=== PATIENT | female | born 1955 | race Caucasian/White ===

== ENCOUNTER 2023-01-17 09:17 | Outpatient (OUT) | payer MEDICARE, SELFPAY ==
[2023-01-17 09:56] LABS: Basophils Percent Auto 0.8 % (0.2-2.0); Eosinophils Absolute Auto 0.1 10^3/uL (0.0-0.7); Eosinophils Percent Auto 2.4 % (0.9-7.0); Hematocrit 42.2 % (36.0-48.0); Hemoglobin 13.4 g/dL (12.0-16.0); Immature Granulocytes Abs Auto 0.01 10^3/uL (0.00-0.03); Immature Granulocytes Pct Auto 0.3 % (0.0-0.5); Lymphocytes Absolute Auto 1.2 10^3/uL (1.2-3.8); Lymphocytes Percent Auto 31.8 % (20.5-60.0); Mean Corpuscular HGB Conc 31.8 g/dL (29.9-35.2); Mean Corpuscular Hemoglobin 27.6 pg (26.7-34.0); Mean Corpuscular Volume 86.8 fL (81.0-99.0); Mean Platelet Volume 9.3 fL (9.5-13.5); Monocytes Absolute Auto 0.3 10^3/uL (0.3-0.8); Monocytes Percent Auto 7.9 % (1.7-12.0); Neutrophils Absolute Auto 2.2 10^3/uL (1.4-6.5); Neutrophils Percent Auto 56.8 % (43.0-75.0); Platelet Count 277 10^3/uL (150-450); Red Blood Count 4.86 10^6/uL (4.20-5.40); Red Cell Distribution Width 13.2 % (11.0-15.0); White Blood Count 3.8 10^3/uL (4.0-11.0)
[2023-01-17 10:38] LABS: Alanine Aminotransferase 24 U/L (14-59); Albumin Globulin Ratio 0.9; Albumin Level 3.5 g/dL (3.4-5.0); Alkaline Phosphatase 59 U/L (46-116); Aspartate Amino Transferase 21 U/L (15-37); BUN Creatinine Ratio 29.8; Bilirubin Total 0.4 mg/dL (0.2-1.0); Calcium 9.3 mg/dL (8.5-10.1); Chloride 104 mmol/L (98-107); Estimated GFR (African America >60 (>=60); Estimated GFR (Non-African Ame 53 (>=60); Globulin 3.8 g/dL; Glucose 115 mg/dL (74-106); Sodium 141 mmol/L (136-145); Total Protein 7.3 g/dL (6.4-8.2)
[2023-01-17 10:51] LABS: Cholesterol 170 mg/dL (<=200); HDL Cholesterol 57 mg/dL (40-60); LDL Cholesterol Calculated 91.8 mg/dL; Thyroid Stimulating Hormone 0.936 uIU/mL (0.358-3.740); Triglycerides 106 mg/dL (<=150); VLDL CHOLESTEROL 21.2 mg/dL
[2023-01-17 10:54] LABS: Free T4 1.14 ng/dL (0.76-1.46)
[2023-01-17 12:11] LABS: Microalbum Creatinine Ratio Ur 11.9 mg/g (0.0-29.9); Microalbumin Urine Random <1.3 mg/dL (<=30.0)
== END 2023-01-17 09:18 ==
LOC: LAB 09:20
PROVIDERS: PCP Family Medicine; Visit Provider Family Medicine
DX: R53.82 Chronic fatigue, unspecified (principal); E11.22 Type 2 diabetes mellitus with diabetic chronic kidney disease; N18.30 Chronic kidney disease, stage 3 unspecified; E78.2 Mixed hyperlipidemia
CPT/HCPCS: 36415; 80053; 80061; 82043; 82306; 82570; 82607; 82746; 84439; 84443; 84481; 85025

== ENCOUNTER 2023-08-27 09:25 | Outpatient (OUT) | payer MEDICARE, SELFPAY ==
--- NOTE | 2023-08-27 09:47 | MM_ITS ---
Patient Name: CAMILLA MERAZ MR#: [id number] : 1955 Exam Date: 08/27/2023 Ordering Doctor: DR PRAVEEN YODER D.O. RADIOLOGY REPORT PROCEDURE: MM TOMOSYNTHESIS SCREENING BI COMPARISON: MG MAMM NITHYA SCRN W CAD DIG, 06/09/2014. MG MAMM SCREEN 3D NITHYA CAD, 09/28/2021. INDICATIONS: Screening Calculator Name NCI Breast Cancer Risk Assessment Tool 5 Year Breast Cancer Risk 1.20% Lifetime Breast Cancer Risk 4.00% Personal Breast Cancer No Personal Ovarian Cancer No Treatments None Family Cancers Father with leukemia cancer at age ~78. LOCATION: [facility] BREAST COMPOSITION: Scattered areas fibroglandular density. FINDINGS: DIAGNOSTIC CATEGORY 2--BENIGN FINDING. NO CHANGE FROM COMPARISON. Scattered benign-appearing nodules are present. Scattered benign-appearing calcifications are present. Scattered benign-appearing lymph nodes are present. RIGHT BREAST: No significant suspicious finding. LEFT BREAST: No significant suspicious finding. RECOMMENDATIONS: ROUTINE MAMMOGRAM AND CLINICAL EVALUATION IN 12 MONTHS. PLEASE NOTE: A NORMAL MAMMOGRAM DOES NOT EXCLUDE THE POSSIBILITY OF BREAST CANCER. A CLINICALLY SUSPICIOUS PALPABLE LUMP SHOULD BE BIOPSIED. Dictated by: Alec Hernandez MD on 08/27/2023 at 11:03 Approved by: Alec Hernandez MD on 08/27/2023 at 11:05
== END 2023-08-27 09:26 | disposition home or self-care (01) ==
LOC: MAMMO 09:26
PROVIDERS: PCP Family Medicine; Visit Provider Family Medicine
DX: Z12.31 Encounter for screening mammogram for malignant neoplasm of breast (principal); Z80.6 Family history of leukemia
CPT/HCPCS: 77063; 77067

== ENCOUNTER 2023-10-01 08:58 | Outpatient (OUT) | payer MEDICARE, SELFPAY ==
--- OUTSIDE RECORDS SUMMARY | 2023-10-01 09:01 | XMS_ITS | CCD ---
Author Name Unknown Address [address] [place] [address] Organization [facility] Care Team Providers Care Community Support Specialist Name Role Phone YODER, DR PRAVEEN Weaver Admitting Unavailable YODER, DR PRAVEEN Weaver Attending Unavailable YODER, DR PRAVEEN Weaver Primary Care Unavailable YODRE, DR PRAVEEN Weaver Primary Care Unavailable HAY, DR DEVRIES Admitting Unavailable HAY, DR DEVRIES Attending Unavailable WEST, DR SHADY Felix Consulting Unavailable HAY, DR DEVRIES Consulting Unavailable YODER, DR PRAVEEN Weaver Admitting Unavailable YODER, DR PRAVEEN Weaver Attending Unavailable YODER, DR PRAVEEN Weaver Primary Care Unavailable YODER, DR PRAVEEN Weaver Consulting Unavailable Zieber, DR Merida Consulting Unavailable YODER, DR PRAVEEN Weaver Admitting Unavailable YODER, DR PRAVEEN Weaver Attending Unavailable YODER, DR PRAVEEN Weaver Primary Care Unavailable YODER, DR PRAVEEN Weaver Consulting Unavailable Zieber, DR Merida Consulting Unavailable YODER, DR PRAVEEN Weaver Admitting Unavailable YODER, DR PRAVEEN Weaver Attending Unavailable YODER, DR PRAVEEN Weaver Primary Care Unavailable YODER, DR PRAVEEN Weaver Consulting Unavailable Problems Active Problems Problem Classification Problem Date Documented Da te Episodic/Chronic Abdominal pain (4 sources) Unspecified abdominal pain; Translations: [UNSPECIFIED ABDOMINAL PAIN] Onset: 04-22-2022 Episodic Diabetes mellitus with complications (4 sources) Type 2 diabetes mellitus with diabetic chronic kidney disease; Translations: [TYPE 2 DM W/DIABETIC CKD] Onset: 01-31-2022 Chronic Disorders of lipid metabolism (1 source) Mixed hyperlipidemia; Translations: [MIXED HYPERLIPIDEMIA] Onset: 02-03-2022 Chronic Nausea and vomiting (1 source) Nausea; Translations: [NAUSEA] Onset: 04-25-2022 Episodic Other aftercare (1 source) 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; Translations: [M[facility] CURRENT USE OF ASPIRIN] Onset: 04-25-2022 Episodic Other aftercare (1 source) 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; Translations: [OTH [facility] CURRENT DRUG THERAPY] Onset: 04-25-2022 Episodic Screening and history of mental health and substance abuse codes (1 source) Personal history of nicotine dependence; Translations: [PERSONAL HISTORY OF NICOTINE DEPEND] Onset: 04-25-2022 Episodic Unclassified (1 source) CHRN KIDNEY DISEASE STG 3 UNSP; Translations: [CHRN KIDNEY DISEASE STG 3 UNSP] Onset: 02-03-2022 Past or Other Problems Problem Classification Problem Date Documented Da te Episodic/Chronic Other screening for suspected conditions (not mental disorders or infectious disease) (5 sources) Other abnormal and inconclusive findings on diagnostic imaging of breast; Translations: [Encounter for screening mammogram for malignant neoplasm of breast] Onset: 09-30-2021 Episodic Residual codes; unclassified (4 sources) Asymptomatic menopausal state; Translations: [ASYMPTOMATIC MENOPAUSAL STATE] Onset: 09-28-2021 Episodic Residual codes; unclassified (1 source) Family history of leukemia; Translations: [FAMILY HISTORY OF LEUKEMIA] Onset: 09-30-2021 Episodic Results Test Name Value Interpretation Reference Range Facil ity CBC AUTO DIFFon 04-22-2022 BASO # 0.0 103/ul Normal 0.0-0.1 [facility] Comment on above: Performed By: #### C BC #### [facility] [address] [place] [address] Dr. Ruddy Oswald Basophils/100 WBC (Bld) 0.7 % Normal 0.2-2.0 [facility] Comment on above: Performed By: #### C BC #### [facility] [address] [place] [address] Dr. Ruddy Oswald EO # 0.1 103/ul Normal 0.0-0.7 [facility] Comment on above: Performed By: #### C BC #### [facility] [address] [place] [address] Dr. Ruddy Oswald Eosinophils/100 WBC (Bld) 1.4 % Normal 0.9-7.0 [facility] Comment on above: Performed By: #### C BC #### [facility] [address] [place] [address] Dr. Ruddy Oswald Erythrocyte distribution width (RBC) [Ratio] 14.6 % Normal 11.0-15.0 [facility] Comment on above: Performed By: #### C BC #### [facility] [address] [place] [address] Dr. Ruddy Oswald Hematocrit (Bld) [Volume fraction] 40.2 % Normal 36.0-48.0 [facility] Comment on above: Performed By: #### C BC #### [facility] [address] [place] [address] Dr. Ruddy Oswald Hemoglobin (Bld) [Mass/Vol] 12.6 g/dL Normal 12.0-16.0 [facility] Comment on above: Performed By: #### C BC #### [facility] [address] [place] [address] Dr. Ruddy Oswald IG # 0.01 10e3/ul Normal 0.00-0.03 [facility] Comment on above: Performed By: #### C BC #### [facility] [address] [place] [address] Dr. Ruddy Oswald IG % 0.2 % Normal 0.0-0.5 [facility] Comment on above: Performed By: #### C BC #### [facility] [address] [place] [address] Dr. Ruddy Oswald LYMPH # 1.5 103/ul Normal 1.2-3.8 [facility] Comment on above: Performed By: #### C BC #### [facility] [address] [place] [address] Dr. Ruddy Oswald Lymphocytes/100 WBC (Bld) 32.8 % Normal 20.5-60.0 [facility] Comment on above: Performed By: #### C BC #### [facility] [address] [place] [address] Dr. Ruddy Oswald MANUAL DIFF REQ NO Normal [facility] Comment on above: Performed By: #### C BC #### [facility] [address] [place] [address] Dr. Ruddy Oswald MCH (RBC) [Entitic mass] 26.7 pg Normal 26.7-34.0 [facility] Comment on above: Performed By: #### C BC #### [facility] [address] [address] [address] Ruddy Oswald MCHC (RBC) [Mass/Vol] 31.3 g/dL Normal 29.9-35.2 [facility] Comment on above: Performed By: #### C BC #### [facility] [address] [address] [address] Ruddy Oswald MCV (RBC) [Entitic vol] 85.2 fL Normal 81.0-99.0 [facility] Comment on above: Performed By: #### C BC #### [facility] [address] [address] [address] Ruddy Oswald MONO # 0.4 103/ul Normal 0.3-0.8 [facility] Comment on above: Performed By: #### C BC #### [facility] [address] [place] [address] Dr. Ruddy Oswald Monocytes/100 WBC (Bld) 8.6 % Normal 1.7-12.0 [facility] Comment on above: Performed By: #### C BC #### [facility] [address] [place] [address] Dr. Ruddy Oswald NEUT # 2.5 103/ul Normal 1.4-6.5 [facility] Comment on above: Performed By: #### C BC #### [facility] [address] [place] [address] Dr. Ruddy Oswald Neutrophils/100 WBC (Bld) 56.3 % Normal 43.0-75.0 [facility] Comment on above: Performed By: #### C BC #### [facility] [address] [address] [address] Ruddy Oswald Platelet mean volume (Bld) [Entitic vol] 9.4 fL Critically low 9.5-13.5 [facility] Comment on above: Performed By: #### C BC #### [facility] [address] [place] [address] Dr. Ruddy Oswald PLT 269 103/ul Normal 150-450 [facility] Comment on above: Performed By: #### C BC #### [facility] [address] [address] [address] Ruddy Oswald RBC 4.72 106/ul Normal 4.20-5.40 [facility] Comment on above: Performed By: #### C BC #### [facility] [address] [address] [address] Ruddy Oswald WBC 4.4 103/ul Normal 4.0-11.0 [facility] Comment on above: Performed By: #### C BC #### [facility] [id number] Ruddy Oswald CT ABD/PELVIS WO CONon 04-22 CT ABD/PELVIS WO CON EXAMINATION: CT ABD/PELVIS WO CON, 04/22/2022 11:56 AM EDT HISTORY: Left flank pain COMPARISON: None. TECHNIQUE: CT scan of the abdomen and pelvis was performed without IV contrast. CT dose reduction technique was used, including Automated Exposure Control. FINDINGS: LUNG BASES: Bibasilar opacities, atelectasis is favored LIVER: Hypodensity left hepatic lobe. A simple cyst is favored BILIARY: No dilatation or calcification. PANCREAS: No lesion, fluid collection, ductal dilatation, or atrophy. SPLEEN: No enlargement or focal lesion. ADRENALS: No mass or enlargement. KIDNEYS: No mass, obstruction, or calcification. BOWEL/MESENTERY: Colonic diverticulosis without evidence of acute diverticulitis. Nonobstructive bowel gas pattern. Normal appendix. AORTA/VASCULAR: No aortic aneurysm. Mild atherosclerosis. RETROPERITONEUM: No mass or adenopathy. LYMPH NODES: No adenopathy. URINARY BLADDER: No visible focal wall thickening, lesion, or calculus. PELVIC ORGANS: Hysterectomy ABDOMINAL WALL: No mass or hernia. BONES: No bony lesion or fracture. Dextrocurvature with degenerative change. 3 mm anterolisthesis of L4 and L5 OTHER: Negative. IMPRESSION: No obstructive uropathy Electronically authenticated by: SHADY WARE Date: 2022-04-22 12:27 Normal [facility] PROF 14(COMP METB)on 022 Albumin [Mass/Vol] 3.9 g/dL Normal 3.4-5.0 [facility] Comment on above: Performed By: #### C MP #### [facility] [address] [address] [address] Ruddy Oswald Albumin/Globulin [Mass ratio] 1.2 {ratio} Normal [facility] Comment on above: Performed By: #### C MP #### [facility] [address] [address] [address] Ruddy Oswald ALP [Catalytic activity/Vol] 53 U/L Normal 46-116 [facility] Comment on above: Performed By: #### C MP #### [facility] [address] [place] [address] Dr. Ruddy Oswald ALT [Catalytic activity/Vol] 20 U/L Normal 14-59 [facility] Comment on above: Performed By: #### C MP #### [facility] [address] [place] [address] Dr. Ruddy Oswald Anion gap [Moles/Vol] 9.1 mmol/L Normal [facility] Comment on above: Performed By: #### C MP #### [facility] [address] [place] [address] Dr. Ruddy Oswald AST [Catalytic activity/Vol] 13 U/L Critically low 15-37 [facility] Comment on above: Performed By: #### C MP #### [facility] [address] [place] [address] Dr. Ruddy Oswald Bilirubin [Mass/Vol] 0.4 mg/dL Normal 0.2-1.0 [facility] Comment on above: Performed By: #### C MP #### [facility] [address] [place] [address] Dr. Ruddy Oswald Calcium [Mass/Vol] 9.3 mg/dL Normal 8.5-10.1 [facility] Comment on above: Performed By: #### C MP #### [facility] [address] [place] [address] Dr. Ruddy Oswald Chloride [Moles/Vol] 104 mmol/L Normal 98-107 [facility] Comment on above: Performed By: #### C MP #### [facility] [address] [place] [address] Dr. Ruddy Oswald CO2 [Moles/Vol] 29.9 mmol/L Normal 21.0-32.0 [facility] Comment on above: Performed By: #### C MP #### [facility] [address] [address] [address] Ruddy Oswald Creatinine [Mass/Vol] 1.21 mg/dL Critically high 0.55-1.02 [facility] Comment on above: Performed By: #### C MP #### [facility] [address] [address] [address] Ruddy Oswald EGFR-AF ECUADOREAN 54 mL/min/1.73m2 Critically low >=60 [facility] Comment on above: Performed By: #### C MP #### [facility] [address] [address] [address] Ruddy Oswald EGFR-NON AF ECUADOREAN 45 mL/min/1.73m2 Critically low >=60 [facility] Comment on above: Performed By: #### C MP #### [facility] [address] [address] [address] Ruddy Oswald Globulin (S) [Mass/Vol] 3.3 g/dL Normal [facility] Comment on above: Performed By: #### C MP #### [facility] [address] [address] [address] Ruddy Oswald Glucose [Mass/Vol] 121 mg/dL Critically high 74-106 [facility] Comment on above: Performed By: #### C MP #### [facility] [address] [address] [address] Ruddy Oswald Potassium [Moles/Vol] 4.0 mmol/L Normal 3.5-5.1 [facility] Comment on above: Performed By: #### C MP #### [facility] [address] [address] [address] Ruddy Oswald Protein [Mass/Vol] 7.2 g/dL Normal 6.4-8.2 [facility] Comment on above: Performed By: #### C MP #### [facility] [address] [place] [address] Dr. Ruddy Oswald Sodium [Moles/Vol] 139 mmol/L Normal 136-145 [facility] Comment on above: Performed By: #### C MP #### [facility] [address] [place] [address] Dr. Ruddy Oswald Urea nitrogen [Mass/Vol] 40.0 mg/dL Critically high 7.0-18.0 [facility] Comment on above: Performed By: #### C MP #### [facility] [address] [place] [address] Dr. Ruddy Oswald Urea nitrogen/Creatinine [Mass ratio] 33.1 mg/mg Normal [facility] Comment on above: Performed By: #### C MP #### [facility] [address] [place] [address] Dr. Ruddy Oswald CBC AUTO DIFFon 01-31-2022 BASO # 0.0 103/ul Normal 0.0-0.1 [facility] Comment on above: Performed By: #### C BC #### [facility] [address] [place] [address] Dr. Ruddy Oswald Basophils/100 WBC (Bld) 0.7 % Normal 0.2-2.0 [facility] Comment on above: Performed By: #### C BC #### [facility] [address] [place] [address] Dr. Ruddy Oswald EO # 0.1 103/ul Normal 0.0-0.7 [facility] Comment on above: Performed By: #### C BC #### [facility] [address] [place] [address] Dr. Ruddy Oswald Eosinophils/100 WBC (Bld) 2.4 % Normal 0.9-7.0 [facility] Comment on above: Performed By: #### C BC #### [facility] [address] [place] [address] Dr. Ruddy Oswald Erythrocyte distribution width (RBC) [Ratio] 13.8 % Normal 11.0-15.0 [facility] Comment on above: Performed By: #### C BC #### [facility] [address] [place] [address] Dr. Ruddy Oswald Hematocrit (Bld) [Volume fraction] 39.0 % Normal 36.0-48.0 [facility] Comment on above: Performed By: #### C BC #### [facility] [address] [place] [address] Dr. Ruddy Oswald Hemoglobin (Bld) [Mass/Vol] 11.8 g/dL Critically low 12.0-16.0 [facility] Comment on above: Performed By: #### C BC #### [facility] [address] [place] [address] Dr. Ruddy Oswald IG # 0.01 10e3/ul Normal 0.00-0.03 [facility] Comment on above: Performed By: #### C BC #### [facility] [address] [place] [address] Dr. Ruddy Oswald IG % 0.2 % Normal 0.0-0.5 [facility] Comment on above: Performed By: #### C BC #### [facility] [address] [place] [address] Dr. Ruddy Oswald LYMPH # 1.5 103/ul Normal 1.2-3.8 [facility] Comment on above: Performed By: #### C BC #### [facility] [address] [place] [address] Dr. Ruddy Oswald Lymphocytes/100 WBC (Bld) 35.6 % Normal 20.5-60.0 [facility] Comment on above: Performed By: #### C BC #### [facility] [address] [place] [address] Dr. Ruddy Oswald MANUAL DIFF REQ NO Normal [facility] Comment on above: Performed By: #### C BC #### [facility] [address] [place] [address] Dr. Ruddy Oswald MCH (RBC) [Entitic mass] 26.1 pg Critically low 26.7-34.0 [facility] Comment on above: Performed By: #### C BC #### [facility] [address] [place] [address] Dr. Ruddy Oswald MCHC (RBC) [Mass/Vol] 30.3 g/dL Normal 29.9-35.2 [facility] Comment on above: Performed By: #### C BC #### [facility] [address] [place] [address] Dr. Ruddy Oswald MCV (RBC) [Entitic vol] 86.3 fL Normal 81.0-99.0 [facility] Comment on above: Performed By: #### C BC #### [facility] [address] [place] [address] Dr. Ruddy Oswald MONO # 0.3 103/ul Normal 0.3-0.8 [facility] Comment on above: Performed By: #### C BC #### [facility] [address] [place] [address] Dr. Ruddy Oswald Monocytes/100 WBC (Bld) 6.7 % Normal 1.7-12.0 [facility] Comment on above: Performed By: #### C BC #### [facility] [address] [place] [address] Dr. Ruddy Oswald NEUT # 2.3 103/ul Normal 1.4-6.5 [facility] Comment on above: Performed By: #### C BC #### [facility] [address] [place] [address] Dr. Ruddy Oswald Neutrophils/100 WBC (Bld) 54.4 % Normal 43.0-75.0 [facility] Comment on above: Performed By: #### C BC #### [facility] [address] [place] [address] Dr. Ruddy Oswald Platelet mean volume (Bld) [Entitic vol] 9.7 fL Normal 9.5-13.5 [facility] Comment on above: Performed By: #### C BC #### [facility] [address] [place] [address] Dr. Ruddy Oswald PLT 318 103/ul Normal 150-450 [facility] Comment on above: Performed By: #### C BC #### [facility] [address] [place] [address] Dr. Ruddy Oswald RBC 4.52 106/ul Normal 4.20-5.40 [facility] Comment on above: Performed By: #### C BC #### [facility] [address] [address] [address] Ruddy Oswald WBC 4.2 103/ul Normal 4.0-11.0 [facility] Comment on above: Performed By: #### C BC #### [facility] [address] [address] [address] Ruddy Oswald LIPID PROFILEon 01-31-2022 CHOL-HDL RATIO NORM SEE BELOW Normal [facility] Comment on above: Result Comment: 3.3 - 4.4 LOW RISK 4.4 - 7.1 AVERAGE RISK 7.1 - 11.0 MODERATE RISK >11.0 HIGH RISK Performed By: #### L IPID, CMP #### [facility] [address] [place] [address] Dr. Ruddy Oswald Cholesterol [Mass/Vol] 192 mg/dL Normal <=200 [facility] Comment on above: Performed By: #### L IPID, CMP #### [facility] [address] [place] [address] Dr. Ruddy Oswald Cholesterol in HDL [Mass/Vol] 60 mg/dL Normal 40-60 [facility] Comment on above: Performed By: #### L IPID, CMP #### [facility] [address] [place] [address] Dr. Ruddy Oswald Cholesterol in LDL [Mass/Vol] 109.0 mg/dL Normal [facility] Comment on above: Performed By: #### L IPID, CMP #### [facility] [address] [address] [address] Ruddy Oswald Cholesterol.total/C holesterol in HDL [Mass ratio] 3.2 {ratio} Normal [facility] Comment on above: Performed By: #### L IPID, CMP #### [facility] [address] [place] [address] Dr. Ruddy Oswald HDL NORMAL > or = 60 mg/dl - LO W CARDIOVASCULAR RISK <40 mg/dl - HIGH CARDIOVASCULAR RISK Normal [facility] Comment on above: Performed By: #### L IPID, CMP #### [facility] [address] [address] [address] Ruddy Oswald LDL CALC NORMAL SEE BELOW Normal [facility] Comment on above: Result Comment: <100 mg/dl OPTIMAL 100 - 129 mg/dl NEAR OR ABOVE OPTIMAL 130 - 159 mg/dl BORDERLINE HIGH 160 - 189 mg/dl HIGH >190 mg/dl VERY HIGH Performed By: #### L IPID, CMP #### [facility] [address] [address] [address] Ruddy Oswald Triglyceride [Mass/Vol] 115 mg/dL Normal <=150 [facility] Comment on above: Performed By: #### L IPID, CMP #### [facility] [address] [address] [address] Ruddy Oswald VLDL CALC 23.0 mg/dL Normal [facility] Comment on above: Performed By: #### L IPID, CMP #### [facility] [address] [place] [address] Dr. Ruddy Oswald MICROALBUMIN, RAND URon 07-0 mALB <1.3 Normal <=30.0 [facility] Comment on above: Performed By: #### M ALBR #### [facility] [address] [address] [address] Ruddy Oswald PROF 14(COMP METB)on 022 Albumin [Mass/Vol] 3.6 g/dL Normal 3.4-5.0 [facility] Comment on above: Performed By: #### L IPID, CMP #### [facility] [address] [place] [address] Dr. Ruddy Oswald Albumin/Globulin [Mass ratio] 1.1 {ratio} Normal [facility] Comment on above: Performed By: #### L IPID, CMP #### [facility] [address] [place] [address] Dr. Ruddy Oswald ALP [Catalytic activity/Vol] 57 U/L Normal 46-116 [facility] Comment on above: Performed By: #### L IPID, CMP #### [facility] [address] [address] [address] Ruddy Oswald ALT [Catalytic activity/Vol] 23 U/L Normal 14-59 [facility] Comment on above: Performed By: #### L IPID, CMP #### [facility] [address] [place] [address] Dr. Ruddy Oswald Anion gap [Moles/Vol] 11.0 mmol/L Normal [facility] Comment on above: Performed By: #### L IPID, CMP #### [facility] [address] [place] [address] Dr. Ruddy Oswald AST [Catalytic activity/Vol] 15 U/L Normal 15-37 [facility] Comment on above: Performed By: #### L IPID, CMP #### [facility] [address] [place] [address] Dr. Ruddy Oswald Bilirubin [Mass/Vol] 0.3 mg/dL Normal 0.2-1.0 [facility] Comment on above: Performed By: #### L IPID, CMP #### [facility] [address] [place] [address] Dr. Ruddy Osawld Calcium [Mass/Vol] 9.1 mg/dL Normal 8.5-10.1 [facility] Comment on above: Performed By: #### L IPID, CMP #### [facility] [address] [place] [address] Dr. Ruddy Oswald Chloride [Moles/Vol] 106 mmol/L Normal 98-107 [facility] Comment on above: Performed By: #### L IPID, CMP #### [facility] [address] [place] [address] Dr. Ruddy Oswald CO2 [Moles/Vol] 30.0 mmol/L Normal 21.0-32.[address] [facility] Comment on above: Performed By: #### L IPID, CMP #### [facility] [address] [place] [address] Dr. Ruddy Oswald Creatinine [Mass/Vol] 0.98 mg/dL Normal 0.55-1.02 [facility] Comment on above: Performed By: #### L IPID, CMP #### [facility] [address] [place] [address] Dr. Ruddy Oswald EGFR-AF ECUADOREAN >60 Normal >=60 [facility] Comment on above: Performed By: #### L IPID, CMP #### [facility] [address] [place] [address] Dr. Ruddy Oswald EGFR-NON AF [place]UADOREAN 57 mL/min/1.73m2 Critically low >=60 [facility] Comment on above: Performed By: #### L IPID, CMP #### [facility] [address] [address] [address] Ruddy Oswald Globulin (S) [Mass/Vol] 3.4 g/dL Normal [facility] Comment on above: Performed By: #### L IPID, CMP #### [facility] [address] [place] [address] Dr. Ruddy Oswald Glucose [Mass/Vol] 121 mg/dL Critically high 74-106 [facility] Comment on above: Performed By: #### L IPID, CMP #### [facility] [address] [place] [address] Dr. Ruddy Oswald Potassium [Moles/Vol] 5.0 mmol/L Normal 3.5-5.1 [facility] Comment on above: Performed By: #### L IPID, CMP #### [facility] [address] [place] [address] Dr. Ruddy Oswald Protein [Mass/Vol] 7.0 g/dL Normal 6.4-8.2 [facility] Comment on above: Performed By: #### L IPID, CMP #### [facility] [address] [place] [address] Dr. Ruddy Oswald Sodium [Moles/Vol] 142 mmol/L Normal 136-145 [facility] Comment on above: Performed By: #### L IPID, CMP #### [facility] [address] [place] [address] Dr. Ruddy Oswald Urea nitrogen [Mass/Vol] 30.0 mg/dL Critically high 7.0-18.0 [facility] Comment on above: Performed By: #### L IPID, CMP #### [facility] [address] [address] [address] Ruddy Oswald Urea nitrogen/Creatinine [Mass ratio] 30.6 mg/mg Normal [facility] Comment on above: Performed By: #### L IPID, CMP #### [facility] [address] [place] [address] Dr. Ruddy Oswald US BREAST LEFT LIMITEDon US BREAST LEFT LIMITED Patient: CAMILLA MERAZ Exam Date: 11/08/2021 : 1955 Gender:F Ordering : DR PRAVEEN YODER D.O. Admission #: [id number] Family : Order #: [id number] CLICK HERE TO VIEW EXAM RADIOLOGY REPORT PROCEDURE: ULTRASOUND BREAST LEFT LIMITED COMPARISON: MG MAMM NITHYA SCRN W CAD DIG, 06/09/2014. MG MAMM SCREEN 3D NITHYA CAD, 09/28/2021. INDICATIONS: Abnormal findings on diagnostic imaging of breast TECHNIQUE: Breast ultrasound was performed, with evaluation focusing only on specific areas of concern. FINDINGS: DIAGNOSTIC CATEGORY 3--PROBABLY BENIGN FINDING. THE FOLLOWING FINDING(S) HAS A HIGH PROBABILITY OF A BENIGN ETIOLOGY: LEFT BREAST: 8 mm smoothly marginated slightly heterogeneous mass at the 12 o'clock position 4.8 cm from the nipple which corresponds to the mammographic findings. In retrospect this has been present since 2013 on mammography suggesting benign etiology. Follow-up ultrasound evaluation in 6 months is recommended to document continued stability prior to returning to screening mammography. RECOMMENDATIONS: SHORT TERM FOLLOW-UP ULTRASOUND LEFT BREAST IN 6 MONTHS. PLEASE NOTE: A NORMAL ULTRASOUND EXAMINATION DOES NOT EXCLUDE THE POSSIBILITY OF BREAST CANCER. A CLINICALLY SUSPICIOUS PALPABLE LUMP SHOULD BE BIOPSIED. Dictated by: Fuad Diaz M.D. on 11/08/2021 at 09:51 Approved by: Fuad Diaz M.D. on 11/08/2021 at 09:55 Normal [facility] MG MAMM SCREEN 3D NITHYA CADon 09-28-2021 MG MAMM SCREEN 3D NITHYA CAD Patient: CAMILLA MERAZ Exam Date: 09/28/2021 : 1955 Gender:F Ordering : DR PRAVEEN YODER D.O. Admission #: [id number] Family : Order #: [id number] CLICK HERE TO VIEW EXAM RADIOLOGY REPORT PROCEDURE: MAMMOGRAM SCREENING 3D BILATERAL CAD COMPARISON: MG MAMM NITHYA SCRN W CAD DIG, 04/01/2013. MG MAMM NITHYA SCRN W CAD DIG, 06/09/2014. INDICATIONS: Screening mammography Calculator Name NCI Breast Cancer Risk Assessment Tool 5 Year Breast Cancer Risk 1.20% Lifetime Breast Cancer Risk 4.40% Personal Breast Cancer No Personal Ovarian Cancer No Treatments None Family Cancers Father with leukemia cancer at age 78. LOCATION: [facility] BREAST COMPOSITION: Scattered areas fibroglandular density. FINDINGS: DIAGNOSTIC CATEGORY 0--INCOMPLETE: NEED ADDITIONAL IMAGING EVALUATION. RIGHT BREAST: No significant suspicious finding. No significant change has occurred. LEFT BREAST: 1 cm asymmetry versus mass within the anterior upper-outer quadrant. Ultrasound evaluation is recommended. RECOMMENDATIONS: ULTRASOUND: LEFT BREAST PLEASE NOTE: A NORMAL MAMMOGRAM DOES NOT EXCLUDE THE POSSIBILITY OF BREAST CANCER. A CLINICALLY SUSPICIOUS PALPABLE LUMP SHOULD BE BIOPSIED. Dictated by: Fuad Diaz M.D. on 09/28/2021 at 11:07 Approved by: Fuad Diaz M.D. on 09/28/2021 at 11:12 Normal [facility] XR DEXA BONE DENSITYon 09-28 XR DEXA BONE DENSITY EXAMINATION: XR DEXA BONE DENSITY, 09/28/2021 8:50 AM EST HISTORY: Menopause present COMPARISON: DEXA bone densitometry 01/23/2012 TECHNIQUE: Dual-energy X-ray absorptiometry (DEXA) bone density study performed for the axial skeleton. FINDINGS: SPINE ANALYSIS: Average bone mineral density is 1.414 g/cm2. T-score (standard deviation relative to young adult mean): 1.8 . -7.9% change since prior study. HIP ANALYSIS: Lowest bone mineral density is within the right femoral neck, 1.005 g/cm2. T-score (standard deviation relative to young adult mean): -0.2 . -9.8% change since prior study. IMPRESSION: [employer] Classification: Normal - Low Fracture Risk Electronically authenticated by: FUAD DIAZ Date: 2021-09-28 14:43 Normal [facility] Encounters Encounter Date Encounter Type Care Provider Facility Start: 05-11-[address] PRAVEEN YODER Fac ility:[facility] Start: 04-22-2022 End: 04-22-[address] PRAVEEN YODER Facility:[facility] Start: 01-31-2022 End: 02-01-[address] PRAVEEN YODER Facility:[facility] Start: 11-08-2021 End: 11-09-[address] PRAVEEN YODER Facility:[facility] Start: 09-28-2021 End: 09-29-[address] PRAVEEN YODER Facility:[facility] Payers Date Payer Category Payer Unknown [id number] 1955 Unknown [id number] 2.16.84 [id number] 1955 Unknown [id number] 2.16.84 [id number] 1955 Unknown [id number] 2.16.84 [id number] 1955 Unknown [id number] 2.16.84 [id number] 1955 Unknown [id number] 2.16.84 [id number] Summary Purpose Family History No Family History Records Found Advance Directives No Advanced Directives Records Found Additional Source Comments INFORMATION SOURCE (unrecogn ized section and content) DATE CREATED AUTHOR 05/09/2022 [facility] FOR RECORDS PERTAINING TO PATIENTS WHO ARE OR HAVE BEEN ENROLLED IN A CHEMICAL DEPENDENCY/SUBSTANCEABUSE PROGRAM, SOME INFORMATION MAY BE OMITTED. This clinical summary was aggregated from multiple sources. Caution should be exercised in using it in the provision of clinical care. This summary normalizes information from multiple sources, and as a consequence, information in this document may materially change the coding, format and clinical context of patient data. In addition, data may be omitted in some cases. CLINICAL DECISIONS SHOULD BE BASED ON THE PRIMARY CLINICAL RECORDS. [facility] [employer] provides no warranty or guarantee of the accuracy or completeness of information in this document.
--- NOTE | 2023-10-01 09:03 | XR_ITS ---
The [address] [address] Patient Name: CAMILLA MERAZ MRN: [id number] date: 1955 Sex: F Assigned Patient Location: [facility] Current Patient Location: [facility] Accession/Order Number: [id number] Exam Date: 10/01/2023 09:20 Report Date: 10/01/2023 10:09 At the request of: PRAVEEN YODER Procedure: XR DEXA axial skeleton EXAMINATION: XR DEXA axial skeleton, 10/01/2023 9:20 AM EST HISTORY: menopause state Z78.0 COMPARISON: 2011, 2009. TECHNIQUE: Dual-energy X-ray absorptiometry (DEXA) bone density study performed for the axial skeleton. HISTORY: menopause state Z78.0 FINDINGS: Bone mineral density AP spine L1-L4 measures 1.393 g/sq cm. T score 1.8. WHO classification: Normal. Lowest bone mineral density right femoral neck measuring 0.970 g/sq cm. T score -0.5. WHO classification: Normal XR/XR DEXA axial skeleton IMPRESSION: Normal bone mineral density. Low fracture risk Electronically authenticated by: SHADY WARE Date: 10/01/2023 10:09
== END 2023-10-01 08:59 | disposition home or self-care (01) ==
LOC: RAD 08:59
PROVIDERS: PCP Family Medicine; Visit Provider Family Medicine
DX: Z78.0 Asymptomatic menopausal state (principal)
CPT/HCPCS: 77080

== ENCOUNTER 2024-01-17 09:08 | Outpatient (OUT) | payer MEDICARE, SELFPAY ==
--- OUTSIDE RECORDS SUMMARY | 2024-01-17 09:30 | XMS_ITS | CCD ---
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 Ruddy Oswald Basophils/100 WBC (Bld) 0.7 % Normal 0.2-2.0 [facility] Comment on above: Performed By: #### C BC #### [facility] [address] [address] [address] Ruddy Oswald EO # 0.1 103/ul Normal 0.0-0.7 [facility] Comment on above: Performed By: #### C BC #### [facility] [address] [address] [address] Ruddy Oswald Eosinophils/100 WBC (Bld) 1.4 % Normal 0.9-7.0 [facility] Comment on above: Performed By: #### C BC #### [facility] [address] [address] [address] Ruddy Oswald Erythrocyte distribution width (RBC) [Ratio] 14.6 % Normal 11.0-15.0 [facility] Comment on above: Performed By: #### C BC #### [facility] [address] [address] [address] Ruddy Oswald Hematocrit (Bld) [Volume fraction] 40.2 % Normal 36.0-48.0 [facility] Comment on above: Performed By: #### C BC #### [facility] [address] [address] [address] Ruddy Oswald Hemoglobin (Bld) [Mass/Vol] 12.6 g/dL Normal 12.0-16.0 [facility] Comment on above: Performed By: #### C BC #### [facility] [address] [address] [address] Ruddy Oswald IG # 0.01 10e3/ul Normal 0.00-0.03 [facility] Comment on above: Performed By: #### C BC #### [facility] [address] [address] [address] Ruddy Oswald IG % 0.2 % Normal 0.0-0.5 [facility] Comment on above: Performed By: #### C BC #### [facility] [address] [address] [address] Ruddy Oswald LYMPH # 1.5 103/ul Normal 1.2-3.8 [facility] Comment on above: Performed By: #### C BC #### [facility] [address] [address] [address] Ruddy Oswald Lymphocytes/100 WBC (Bld) 32.8 % Normal 20.5-60.0 [facility] Comment on above: Performed By: #### C BC #### [facility] [address] [address] [address] Ruddy Oswald MANUAL DIFF REQ NO Normal [facility] Comment on above: Performed By: #### C BC #### [facility] [address] [place] [address] Dr. Ruddy Oswald MCH (RBC) [Entitic mass] 26.7 pg Normal 26.7-34.0 [facility] Comment on above: Performed By: #### C BC #### [facility] [address] [address] [address] Ruddy Oswald MCHC (RBC) [Mass/Vol] 31.3 g/dL Normal 29.9-35.2 [facility] Comment on above: Performed By: #### C BC #### [facility] [address] [address] [address] Ruddy Oswald MCV (RBC) [Entitic vol] 85.2 fL Normal 81.0-99.0 [facility] Comment on above: Performed By: #### C BC #### [facility] [address] [address] [address] Ruddy Oswald MONO # 0.4 103/ul Normal 0.3-0.8 [facility] Comment on above: Performed By: #### C BC #### [facility] [address] [place] [address] Dr. Ruddy Oswald Monocytes/100 WBC (Bld) 8.6 % Normal 1.7-12.0 [facility] Comment on above: Performed By: #### C BC #### [facility] [address] [place] [address] Dr. Ruddy Oswald NEUT # 2.5 103/ul Normal 1.4-6.5 [facility] Comment on above: Performed By: #### C BC #### [facility] [address] [place] [address] Dr. Ruddy Oswald Neutrophils/100 WBC (Bld) 56.3 % Normal 43.0-75.0 [facility] Comment on above: Performed By: #### C BC #### [facility] [address] [place] [address] Dr. Ruddy Oswald Platelet mean volume (Bld) [Entitic vol] 9.4 fL Critically low 9.5-13.5 [facility] Comment on above: Performed By: #### C BC #### [facility] [address] [place] [address] Dr. Ruddy Oswald PLT 269 103/ul Normal 150-450 [facility] Comment on above: Performed By: #### C BC #### [facility] [address] [address] [address] Ruddy Oswald RBC 4.72 106/ul Normal 4.20-5.40 [facility] Comment on above: Performed By: #### C BC #### [facility] [address] [address] [address] Ruddy Oswald WBC 4.4 103/ul Normal 4.0-11.0 [facility] Comment on above: Performed By: #### C BC #### [facility] [address] ABD/PELVIS WO CONon [...] SHADY WARE Date: 2022-04-22 12:27 Normal [facility] PROF 14(COMP METB)on 022 Albumin [Mass/Vol] 3.9 g/dL Normal 3.4-5.0 [facility] Comment on above: Performed By: #### C MP #### [facility] [address] [address] [address] Ruddy Oswald Albumin/Globulin [Mass ratio] 1.2 {ratio} Normal [facility] Comment on above: Performed By: #### C MP #### [facility] [address] [place] [address] Dr. Ruddy Oswald ALP [Catalytic activity/Vol] 53 U/L Normal 46-116 [facility] Comment on above: Performed By: #### C MP #### [facility] [address] [place] [address] Dr. Ruddy Oswald ALT [Catalytic activity/Vol] 20 U/L Normal 14-59 [facility] Comment on above: Performed By: #### C MP #### [facility] [address] [place] [address] Dr. Ruddy Oswald Anion gap [Moles/Vol] 9.1 mmol/L Normal [facility] Comment on above: Performed By: #### C MP #### [facility] [address] [place] [address] Dr. Ruddy Oswald AST [Catalytic activity/Vol] 13 U/L Critically low 15-37 [facility] Comment on above: Performed By: #### C MP #### [facility] [address] [place] [address] Dr. Ruddy Oswald Bilirubin [Mass/Vol] 0.4 mg/dL Normal 0.2-1.0 [facility] Comment on above: Performed By: #### C MP #### [facility] [address] [place] [address] Dr. Ruddy Oswald Calcium [Mass/Vol] 9.3 mg/dL Normal 8.5-10.1 [facility] Comment on above: Performed By: #### C MP #### [facility] [address] [place] [address] Dr. Ruddy Oswald Chloride [Moles/Vol] 104 mmol/L Normal 98-107 [facility] Comment on above: Performed By: #### C MP #### [facility] [address] [place] [address] Dr. Ruddy Oswald CO2 [Moles/Vol] 29.9 mmol/L Normal 21.0-32.0 [facility] Comment on above: Performed By: #### C MP #### [facility] [address] [address] [address] Ruddy Oswald Creatinine [Mass/Vol] 1.21 mg/dL Critically high 0.55-1.02 [facility] Comment on above: Performed By: #### C MP #### [facility] [address] [address] [address] Ruddy Oswald EGFR-AF POLISH 54 mL/min/1.73m2 Critically low >=60 [facility] Comment on above: Performed By: #### C MP #### [facility] [address] [address] [address] Ruddy Oswald EGFR-NON AF POLISH 45 mL/min/1.73m2 Critically low >=60 [facility] Comment on above: Performed By: #### C MP #### [facility] [address] [address] [address] Ruddy Oswald Globulin (S) [Mass/Vol] 3.3 g/dL Normal [facility] Comment on above: Performed By: #### C MP #### [facility] [address] [address] [address] Ruddy Oswald Glucose [Mass/Vol] 121 mg/dL Critically high 74-106 [facility] Comment on above: Performed By: #### C MP #### [facility] [address] [address] [address] Ruddy Oswald Potassium [Moles/Vol] 4.0 mmol/L Normal 3.5-5.1 [facility] Comment on above: Performed By: #### C MP #### [facility] [address] [address] [address] Ruddy Oswald Protein [Mass/Vol] 7.2 g/dL Normal 6.4-8.2 [facility] Comment on above: Performed By: #### C MP #### [facility] [address] [address] [address] Ruddy Oswald Sodium [Moles/Vol] 139 mmol/L Normal 136-145 [facility] Comment on above: Performed By: #### C MP #### [facility] [address] [address] [address] Ruddy Oswald Urea nitrogen [Mass/Vol] 40.0 mg/dL Critically high 7.0-18.0 [facility] Comment on above: Performed By: #### C MP #### [facility] [address] [place] [address] Dr. Ruddy Oswald Urea nitrogen/Creatinine [Mass ratio] 33.1 mg/mg Normal [facility] Comment on above: Performed By: #### C MP #### [facility] [address] [place] [address] Dr. Ruddy Oswald CBC AUTO DIFFon 01-31-2022 BASO # 0.0 103/ul Normal 0.0-0.1 [facility] Comment on above: Performed By: #### C BC #### [facility] [address] [place] [address] Dr. Ruddy Oswald Basophils/100 WBC (Bld) 0.7 % Normal 0.2-2.0 [facility] Comment on above: Performed By: #### C BC #### [facility] [address] [place] [address] Dr. Ruddy Oswald EO # 0.1 103/ul Normal 0.0-0.7 [facility] Comment on above: Performed By: #### C BC #### [facility] [address] [place] [address] Dr. Ruddy Oswald Eosinophils/100 WBC (Bld) 2.4 % Normal 0.9-7.0 [facility] Comment on above: Performed By: #### C BC #### [facility] [address] [place] [address] Dr. Ruddy Oswald Erythrocyte distribution width (RBC) [Ratio] 13.8 % Normal 11.0-15.0 [facility] Comment on above: Performed By: #### C BC #### [facility] [address] [place] [address] Dr. Ruddy Oswald Hematocrit (Bld) [Volume fraction] 39.0 % Normal 36.0-48.0 [facility] Comment on above: Performed By: #### C BC #### [facility] [address] [place] [address] Dr. Ruddy Oswald Hemoglobin (Bld) [Mass/Vol] 11.8 g/dL Critically low 12.0-16.0 [facility] Comment on above: Performed By: #### C BC #### [facility] [address] [place] [address] Dr. Ruddy Oswald IG # 0.01 10e3/ul Normal 0.00-0.03 [facility] Comment on above: Performed By: #### C BC #### [facility] [address] [place] [address] Dr. Ruddy Oswald IG % 0.2 % Normal 0.0-0.5 [facility] Comment on above: Performed By: #### C BC #### [facility] [address] [place] [address] Dr. Ruddy Oswald LYMPH # 1.5 103/ul Normal 1.2-3.8 [facility] Comment on above: Performed By: #### C BC #### [facility] [address] [place] [address] Dr. Ruddy Oswald Lymphocytes/100 WBC (Bld) 35.6 % Normal 20.5-60.0 [facility] Comment on above: Performed By: #### C BC #### [facility] [address] [place] [address] Dr. Ruddy Oswald MANUAL DIFF REQ NO Normal [facility] Comment on above: Performed By: #### C BC #### [facility] [address] [place] [address] Dr. Ruddy Oswald MCH (RBC) [Entitic mass] 26.1 pg Critically low 26.7-34.0 [facility] Comment on above: Performed By: #### C BC #### [facility] [address] [place] [address] Dr. Ruddy Oswald MCHC (RBC) [Mass/Vol] 30.3 g/dL Normal 29.9-35.2 [facility] Comment on above: Performed By: #### C BC #### [facility] [address] [address] [address] Ruddy Oswald MCV (RBC) [Entitic vol] 86.3 fL Normal 81.0-99.0 [facility] Comment on above: Performed By: #### C BC #### [facility] [address] [address] [address] Ruddy Oswald MONO # 0.3 103/ul Normal 0.3-0.8 [facility] Comment on above: Performed By: #### C BC #### [facility] [address] [address] [address] Ruddy Oswald Monocytes/100 WBC (Bld) 6.7 % Normal 1.7-12.0 [facility] Comment on above: Performed By: #### C BC #### [facility] [address] [place] [address] Dr. Ruddy Oswald NEUT # 2.3 103/ul Normal 1.4-6.5 [facility] Comment on above: Performed By: #### C BC #### [facility] [address] [place] [address] Dr. Ruddy Oswald Neutrophils/100 WBC (Bld) 54.4 % Normal 43.0-75.0 [facility] Comment on above: Performed By: #### C BC #### [facility] [address] [place] [address] Dr. Ruddy Oswald Platelet mean volume (Bld) [Entitic vol] 9.7 fL Normal 9.5-13.5 [facility] Comment on above: Performed By: #### C BC #### [facility] [address] [place] [address] Dr. Ruddy Oswald PLT 318 103/ul Normal 150-450 [facility] Comment on above: Performed By: #### C BC #### [facility] [address] [place] [address] Dr. Ruddy Oswald RBC 4.52 106/ul Normal 4.20-5.40 [facility] Comment on above: Performed By: #### C BC #### [facility] [address] [address] [address] Ruddy Oswald WBC 4.2 103/ul Normal 4.0-11.0 [facility] Comment on above: Performed By: #### C BC #### [facility] [address] [place] [address] Dr. Ruddy Oswald LIPID PROFILEon 01-31-2022 CHOL-HDL RATIO NORM SEE BELOW Normal [facility] Comment on above: Result Comment: 3.3 - 4.4 LOW RISK 4.4 - 7.1 AVERAGE RISK 7.1 - 11.0 MODERATE RISK >11.0 HIGH RISK Performed By: #### L IPID, CMP #### [facility] [address] [place] [address] Dr. Ruddy Oswald Cholesterol [Mass/Vol] 192 mg/dL Normal <=200 [facility] Comment on above: Performed By: #### L IPID, CMP #### [facility] [address] [place] [address] Dr. Ruddy Oswald Cholesterol in HDL [Mass/Vol] 60 mg/dL Normal 40-60 [facility] Comment on above: Performed By: #### L IPID, CMP #### [facility] [address] [place] [address] Dr. Ruddy Oswald Cholesterol in LDL [Mass/Vol] 109.0 mg/dL Normal [facility] Comment on above: Performed By: #### L IPID, CMP #### [facility] [address] [place] [address] Dr. Ruddy Oswald Cholesterol.total/C holesterol in HDL [Mass ratio] 3.2 {ratio} Normal [facility] Comment on above: Performed By: #### L IPID, CMP #### [facility] [address] [place] [address] Dr. Ruddy Oswald HDL NORMAL > or = 60 mg/dl - LO W CARDIOVASCULAR RISK <40 mg/dl - HIGH CARDIOVASCULAR RISK Normal [facility] Comment on above: Performed By: #### L IPID, CMP #### [facility] [address] [place] [address] Dr. Ruddy Oswald LDL CALC NORMAL SEE BELOW Normal [facility] Comment on above: Result Comment: <100 mg/dl OPTIMAL 100 - 129 mg/dl NEAR OR ABOVE OPTIMAL 130 - 159 mg/dl BORDERLINE HIGH 160 - 189 mg/dl HIGH >190 mg/dl VERY HIGH Performed By: #### L IPID, CMP #### [facility] [address] [address] [address] Ruddy Oswald Triglyceride [Mass/Vol] 115 mg/dL Normal <=150 [facility] Comment on above: Performed By: #### L IPID, CMP #### [facility] [address] [address] [address] Ruddy Oswald VLDL CALC 23.0 mg/dL Normal [facility] Comment on above: Performed By: #### L IPID, CMP #### [facility] [address] [place] [address] Dr. Ruddy Oswald MICROALBUMIN, RAND URon 07-0 mALB <1.3 Normal <=30.0 [facility] Comment on above: Performed By: #### M ALBR #### [facility] [address] [place] [address] Dr. Ruddy Oswald PROF 14(COMP METB)on 022 Albumin [Mass/Vol] 3.6 g/dL Normal 3.4-5.0 [facility] Comment on above: Performed By: #### L IPID, CMP #### [facility] [address] [place] [address] Dr. Ruddy Oswald Albumin/Globulin [Mass ratio] 1.1 {ratio} Normal [facility] Comment on above: Performed By: #### L IPID, CMP #### [facility] [address] [address] [address] Ruddy Oswald ALP [Catalytic activity/Vol] 57 U/L Normal 46-116 [facility] Comment on above: Performed By: #### L IPID, CMP #### [facility] [address] [place] [address] Dr. Ruddy Oswald ALT [Catalytic activity/Vol] 23 U/L Normal 14-59 [facility] Comment on above: Performed By: #### L IPID, CMP #### [facility] [address] [address] [address] Ruddy Oswald Anion gap [Moles/Vol] 11.0 mmol/L Normal [facility] Comment on above: Performed By: #### L IPID, CMP #### [facility] [address] [address] [address] Ruddy Oswald AST [Catalytic activity/Vol] 15 U/L Normal 15-37 [facility] Comment on above: Performed By: #### L IPID, CMP #### [facility] [address] [address] [address] Ruddy Oswald Bilirubin [Mass/Vol] 0.3 mg/dL Normal 0.2-1.0 [facility] Comment on above: Performed By: #### L IPID, CMP #### [facility] [address] [address] [address] Ruddy Oswald Calcium [Mass/Vol] 9.1 mg/dL Normal 8.5-10.1 [facility] Comment on above: Performed By: #### L IPID, CMP #### [facility] [address] [address] [address] Ruddy Oswald Chloride [Moles/Vol] 106 mmol/L Normal 98-107 [facility] Comment on above: Performed By: #### L IPID, CMP #### [facility] [address] [address] [address] Ruddy Oswald CO2 [Moles/Vol] 30.0 mmol/L Normal 21.0-32.0 [facility] Comment on above: Performed By: #### L IPID, CMP #### [facility] [address] [address] [address] Ruddy Oswald Creatinine [Mass/Vol] 0.98 mg/dL Normal 0.55-1.02 [facility] Comment on above: Performed By: #### L IPID, CMP #### [facility] [address] [address] [address] Ruddy Oswald EGFR-AF POLISH >60 Normal >=60 [facility] Comment on above: Performed By: #### L IPID, CMP #### [facility] [address] [address] [address] Ruddy Oswald EGFR-NON AF POLISH 57 mL/min/1.73m2 Critically low >=60 [facility] Comment on above: Performed By: #### L IPID, CMP #### [facility] [address] [address] [address] Ruddy Oswald Globulin (S) [Mass/Vol] 3.4 g/dL Normal [facility] Comment on above: Performed By: #### L IPID, CMP #### [facility] [address] [place] [address] Dr. Ruddy Oswald Glucose [Mass/Vol] 121 mg/dL Critically high 74-106 [facility] Comment on above: Performed By: #### L IPID, CMP #### [facility] [address] [place] [address] Dr. Ruddy Oswald Potassium [Moles/Vol] 5.0 mmol/L Normal 3.5-5.1 [facility] Comment on above: Performed By: #### L IPID, CMP #### [facility] [address] [place] [address] Dr. Ruddy Oswald Protein [Mass/Vol] 7.0 g/dL Normal 6.4-8.2 [facility] Comment on above: Performed By: #### L IPID, CMP #### [facility] [address] [place] [address] Dr. Ruddy Oswald Sodium [Moles/Vol] 142 mmol/L Normal 136-145 [facility] Comment on above: Performed By: #### L IPID, CMP #### [facility] [address] [place] [address] Dr. Ruddy Oswald Urea nitrogen [Mass/Vol] 30.0 mg/dL Critically high 7.0-18.0 [facility] Comment on above: Performed By: #### L IPID, CMP #### [facility] [address] [place] [address] Dr. Ruddy Oswald Urea nitrogen/Creatinine [Mass ratio] 30.6 mg/mg Normal [facility] Comment on above: Performed By: #### L IPID, [facility] #### [facility] [address] [place] [address] Dr. Ruddy Oswald US BREAST LEFT LIMITEDon US BREAST LEFT LIMITED Patient: CAMILLA MERAZ. Exam Date: 11/08/2021 : 1955 Gender:F Ordering : DR PRAVEEN YODER D.O. Admission #: [id number] Family : Order #: [id number] CLICK HERE TO VIEW EXAM RADIOLOGY REPORT [...] M.D. on 11/08/2021 at 09:55 Normal [facility] MG MAMM SCREEN 3D NITHYA CADon 09-28-2021 MG MAMM SCREEN 3D NITHYA CAD Patient: CAMILLA MERAZ. Exam Date: 09/28/2021 : 1955 Gender:F Ordering : DR PRAVEEN YODER D.O. Admission #: [id number] Family : Order #: [id number] CLICK HERE TO VIEW EXAM RADIOLOGY REPORT [...] leukemia cancer at age 78. LOCATION: [facility] BREAST COMPOSITION: Scattered areas fibroglandular density. [...] Diaz M.D. on 09/28/2021 at 11:12 Normal [facility] XR DEXA BONE DENSITYon 09-28 XR DEXA [...] by: FUAD DIAZ Date: 2021-09-28 14:43 Normal [facility] Encounters Encounter Date Encounter Type Care Provider Facility Start: 05-11-[address] PRAVEEN YODER Fac ility:[facility] Start: 04-22-2022 End: 04-22-[address] PRAVEEN YODER Facility:[facility] Start: 01-31-2022 End: 02-01-[address] PRAVEEN YODER Facility:[facility] Start: 11-08-2021 End: 11-09-[address] PRAVEEN YODER Facility:[facility] Start: 09-28-2021 End: 09-29-[address] PRAVEEN YODER Facility:[facility] Payers Date Payer Category Payer Unknown [id number] 1955 Unknown [id number] [id number] [id number] 1955 Unknown [id number] 2.16.84 [id number] 1955 Unknown [id number] [id number] [id number] 1955 Unknown [id number] 2.16.84 [id number] 1955 Unknown [id number] 2.16.84 [id number] Summary Purpose Family History No Family History Records Found Advance Directives No Advanced Directives Records Found Additional Source Comments INFORMATION SOURCE (unrecogn ized section and content) DATE CREATED AUTHOR 05/09/2022 [facility] FOR RECORDS PERTAINING TO PATIENTS WHO ARE [...] BE BASED ON THE PRIMARY CLINICAL RECORDS. [employer] [facility]. provides no warranty or guarantee of the accuracy or completeness of information in this document.
--- NOTE | 2024-01-17 09:37 | XR_ITS ---
The [address] [address] Patient Name: CAMILLA MERAZ MRN: [id number] date: 1955 Sex: F Assigned Patient Location: LAB Current Patient Location: Accession/Order Number: [id number] Exam Date: 01/17/2024 09:42 Report Date: 01/18/2024 06:10 At the request of: PRAVEEN YODER Procedure: XR knee LT 3V PROCEDURE: XR knee LT 3V HISTORY: Left Knee Pain M25.562 COMPARISON: None. FINDINGS: BONES:No fracture, dislocation, bone lesion. Periarticular degenerative osteophytes and mild narrowing of the joint spaces involving all 3 compartments. SOFT TISSUES:No visible soft tissue swelling. EFFUSION:None visible. OTHER: Negative. XR/XR knee LT 3V IMPRESSION: 1. No appreciable acute abnormality. 2. Multifocal mild degenerative joint disease. Electronically authenticated by: PRTII TAVAREZ Date: 01/18/2024 06:10
[2024-01-17 09:44] LABS: Basophils Percent Auto 0.7 % (0.2-2.0); Eosinophils Absolute Auto 0.2 10^3/uL (0.0-0.7); Eosinophils Percent Auto 4.6 % (0.9-7.0); Hematocrit 41.3 % (36.0-48.0); Hemoglobin 13.3 g/dL (12.0-16.0); Immature Granulocytes Abs Auto 0.01 10^3/uL (0.00-0.03); Immature Granulocytes Pct Auto 0.2 % (0.0-0.5); Lymphocytes Absolute Auto 1.6 10^3/uL (1.2-3.8); Lymphocytes Percent Auto 36.6 % (20.5-60.0); Mean Corpuscular HGB Conc 32.2 g/dL (29.9-35.2); Mean Corpuscular Hemoglobin 28.4 pg (26.7-34.0); Mean Corpuscular Volume 88.1 fL (81.0-99.0); Mean Platelet Volume 9.7 fL (9.5-13.5); Monocytes Absolute Auto 0.3 10^3/uL (0.3-0.8); Monocytes Percent Auto 7.6 % (1.7-12.0); Neutrophils Absolute Auto 2.2 10^3/uL (1.4-6.5); Neutrophils Percent Auto 50.3 % (43.0-75.0); Platelet Count 228 10^3/uL (150-450); Red Blood Count 4.69 10^6/uL (4.20-5.40); White Blood Count 4.4 10^3/uL (4.0-11.0)
[2024-01-17 09:51] LABS: Creatinine Urine Random 88.51 mg/dL (20.00-300.00); Microalbum Creatinine Ratio Ur 14.6 mg/g (0.0-29.9); Microalbumin Urine Random <1.3 mg/dL (<=30.0)
[2024-01-17 10:49] LABS: Alanine Aminotransferase 28 U/L (14-59); Albumin Globulin Ratio 1.1; Albumin Level 3.6 g/dL (3.4-5.0); Alkaline Phosphatase 62 U/L (46-116); Anion Gap 10.6; Aspartate Amino Transferase 18 U/L (15-37); BUN Creatinine Ratio 33.7; Bilirubin Total 0.5 mg/dL (0.2-1.0); Calcium 9.5 mg/dL (8.5-10.1); Carbon Dioxide 27.5 mmol/L (21.0-32.0); Chloride 106 mmol/L (98-107); Chol HDL Ratio 3.5; Cholesterol 197 mg/dL (<=200); Estimated GFR (African America >60 (>=60); Estimated GFR (Non-African Ame 58 (>=60); Globulin 3.2 g/dL; Glucose 116 mg/dL (74-106); HDL Cholesterol 57 mg/dL (40-60); LDL Cholesterol Calculated 114.6 mg/dL; Potassium 4.1 mmol/L (3.5-5.1); Sodium 140 mmol/L (136-145); Total Protein 6.8 g/dL (6.4-8.2); Triglycerides 127 mg/dL (<=150); VLDL CHOLESTEROL 25.4 mg/dL
[2024-01-17 10:56] LABS: Estimated Average Glucose 131 mg/dL; Glycohemoglobin A1C 6.2 % (4.5-6.2)
== END 2024-01-17 09:09 | disposition home or self-care (01) ==
LOC: LAB 09:12
PROVIDERS: PCP Family Medicine; Visit Provider Family Medicine
DX: M25.562 Pain in left knee (principal); I10 Essential (primary) hypertension; E78.2 Mixed hyperlipidemia; R73.03 Prediabetes
CPT/HCPCS: 36415; 73562; 80053; 80061; 82043; 82570; 83036; 85025

== ENCOUNTER 2024-04-24 07:03 | Outpatient (OUT) | payer MEDICARE, SELFPAY ==
--- OUTSIDE RECORDS SUMMARY | 2024-04-24 07:05 | XMS_ITS | CCD ---
Author Organization [facility] Care Team Providers Care Down Filler Name Role Phone PARESH, DR PRAVEEN Weaver Admitting Unavailable YODER, DR PRAVEEN Weaver Attending Unavailable YODER, DR PRAVEEN Weaver Primary Care Unavailable YODER, DR PRAVEEN Weaver Primary Care Unavailable HAY, DR DEVRIES Admitting Unavailable HAY, DR DEVRIES Attending Unavailable WEST, DR SHADY Felix Consulting Unavailable HAY, DR DEVRIES Consulting Unavailable YDOER, DR PRAVEEN Weaver Admitting Unavailable YODER, DR [...] Onset: 04-25-2022 Episodic Other aftercare (1 source) retirement (current) use of aspirin; Translations: [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 Ruddy Oswald Basophils/100 WBC (Bld) 0.7 % Normal 0.2-2.0 [facility] Comment on above: Performed By: #### C BC #### [facility] [address] [address] [address] Ruddy Oswald EO # 0.1 103/ul Normal 0.0-0.7 [facility] Comment on above: Performed By: #### C BC #### [facility] [address] [address] [address] Ruddy Oswald Eosinophils/100 WBC (Bld) 1.4 % Normal 0.9-7.0 [facility] Comment on above: Performed By: #### C BC #### [facility] [address] [address] [address] Ruddy Oswald Erythrocyte distribution width (RBC) [Ratio] 14.6 % Normal 11.0-15.0 [facility] Comment on above: Performed By: #### C BC #### [facility] [address] [address] [address] Ruddy Oswald Hematocrit (Bld) [Volume fraction] 40.2 % Normal 36.0-48.0 [facility] Comment on above: Performed By: #### C BC #### [facility] [address] [address] [address] Ruddy Oswald Hemoglobin (Bld) [Mass/Vol] 12.6 g/dL Normal 12.0-16.0 [facility] Comment on above: Performed By: #### C BC #### [facility] [address] [address] [address] Ruddy Oswald IG # 0.01 10e3/ul Normal 0.00-0.03 [facility] Comment on above: Performed By: #### C BC #### [facility] [address] [address] [address] Ruddy Oswald IG % 0.2 % Normal 0.0-0.5 [facility] Comment on above: Performed By: #### C BC #### [facility] [address] [address] [address] Ruddy Oswald LYMPH # 1.5 103/ul Normal 1.2-3.8 [facility] Comment on above: Performed By: #### C BC #### [facility] [address] [address] [address] Ruddy Oswald Lymphocytes/100 WBC (Bld) 32.8 % Normal 20.5-60.0 [facility] Comment on above: Performed By: #### C BC #### [facility] [address] [address] [address] Ruddy Oswald MANUAL DIFF REQ NO Normal [facility] Comment on above: Performed By: #### C BC #### [facility] [address] [place] [address] Dr. Ruddy Oswald MCH (RBC) [Entitic mass] 26.7 pg Normal 26.7-34.0 [facility] Comment on above: Performed By: #### C BC #### [facility] [address] [address] [address] Ruddy Oswald MCHC (RBC) [Mass/Vol] 31.3 g/dL Normal 29.9-35.2 [facility] Comment on above: Performed By: #### C BC #### [facility] [address] [address] [address] Ruddy Oswald MCV (RBC) [Entitic vol] 85.2 fL Normal 81.0-99.0 [facility] Comment on above: Performed By: #### C BC #### [facility] [address] [address] [address] Ruddy Oswald MONO # 0.4 103/ul Normal 0.3-0.8 [facility] Comment on above: Performed By: #### C BC #### [facility] [address] [place] [address] Dr. Ruddy Oswald Monocytes/100 WBC (Bld) 8.6 % Normal 1.7-12.0 [facility] Comment on above: Performed By: #### C BC #### [facility] [address] [place] [address] Dr. Ruddy Oswald NEUT # 2.5 103/ul Normal 1.4-6.5 [facility] Comment on above: Performed By: #### C BC #### [facility] [address] [place] [address] Dr. Ruddy Oswald Neutrophils/100 WBC (Bld) 56.3 % Normal 43.0-75.0 [facility] Comment on above: Performed By: #### C BC #### [facility] [address] [place] [address] Dr. Ruddy Oswald Platelet mean volume (Bld) [Entitic vol] 9.4 fL Critically low 9.5-13.5 [facility] Comment on above: Performed By: #### C BC #### [facility] [address] [place] [address] Dr. Ruddy Oswald PLT 269 103/ul Normal 150-450 [facility] Comment on above: Performed By: #### C BC #### [facility] [address] [address] [address] Ruddy Oswald RBC 4.72 106/ul Normal 4.20-5.40 [facility] Comment on above: Performed By: #### C BC #### [facility] [address] [address] [address] Ruddy Oswald WBC 4.4 103/ul Normal 4.0-11.0 [facility] Comment on above: Performed By: #### C BC #### [facility] [address] ABD/PELVIS WO CONon [...] SHADY WARE Date: 2022-04-22 12:27 Normal [facility] PROF 14(COMP METB)on 022 Albumin [Mass/Vol] 3.9 g/dL Normal 3.4-5.0 [facility] Comment on above: Performed By: #### C MP #### [facility] [address] [address] [address] Ruddy Oswald Albumin/Globulin [Mass ratio] 1.2 {ratio} Normal [facility] Comment on above: Performed By: #### C MP #### [facility] [address] [place] [address] Dr. Ruddy Oswald ALP [Catalytic activity/Vol] 53 U/L Normal 46-116 [facility] Comment on above: Performed By: #### C MP #### [facility] [address] [place] [address] Dr. Ruddy Oswald ALT [Catalytic activity/Vol] 20 U/L Normal 14-59 [facility] Comment on above: Performed By: #### C MP #### [facility] [address] [place] [address] Dr. Ruddy Oswald Anion gap [Moles/Vol] 9.1 mmol/L Normal [facility] Comment on above: Performed By: #### C MP #### [facility] [address] [place] [address] Dr. Ruddy Oswald AST [Catalytic activity/Vol] 13 U/L Critically low 15-37 [facility] Comment on above: Performed By: #### C MP #### [facility] [address] [place] [address] Dr. Ruddy Oswald Bilirubin [Mass/Vol] 0.4 mg/dL Normal 0.2-1.0 [facility] Comment on above: Performed By: #### C MP #### [facility] [address] [place] [address] Dr. Ruddy Oswald Calcium [Mass/Vol] 9.3 mg/dL Normal 8.5-10.1 [facility] Comment on above: Performed By: #### C MP #### [facility] [address] [place] [address] Dr. Ruddy Oswald Chloride [Moles/Vol] 104 mmol/L Normal 98-107 [facility] Comment on above: Performed By: #### C MP #### [facility] [address] [place] [address] Dr. Ruddy Oswald CO2 [Moles/Vol] 29.9 mmol/L Normal 21.0-32.0 [facility] Comment on above: Performed By: #### C MP #### [facility] [address] [address] [address] Ruddy Oswald Creatinine [Mass/Vol] 1.21 mg/dL Critically high 0.55-1.02 [facility] Comment on above: Performed By: #### C MP #### [facility] [address] [address] [address] Ruddy Oswald EGFR-AF CITIZEN OF [place] 54 mL/min/1.73m2 Critically low >=60 [facility] Comment on above: Performed By: #### C MP #### [facility] [address] [address] [address] Ruddy Oswald EGFR-NON AF CITIZEN OF [place] 45 mL/min/1.73m2 Critically low >=60 [facility] Comment on above: Performed By: #### C MP #### [facility] [address] [address] [address] Ruddy Oswald Globulin (S) [Mass/Vol] 3.3 g/dL Normal [facility] Comment on above: Performed By: #### C MP #### [facility] [address] [address] [address] Ruddy Oswald Glucose [Mass/Vol] 121 mg/dL Critically high 74-[address] [facility] Comment on above: Performed By: #### C MP #### [facility] [address] [address] [address] Ruddy Oswald Potassium [Moles/Vol] 4.0 mmol/L Normal 3.5-5.1 [facility] Comment on above: Performed By: #### C MP #### [facility] [address] [address] [address] Ruddy Oswald Protein [Mass/Vol] 7.2 g/dL Normal 6.4-8.2 [facility] Comment on above: Performed By: #### C MP #### [facility] [address] [address] [address] Ruddy Oswald Sodium [Moles/Vol] 139 mmol/L Normal 136-145 [facility] Comment on above: Performed By: #### C MP #### [facility] [address] [address] [address] Ruddy Oswald Urea nitrogen [Mass/Vol] 40.0 mg/dL Critically high 7.0-18.0 [facility] Comment on above: Performed By: #### C MP #### [facility] [address] [place] [address] Dr. Ruddy Oswald Urea nitrogen/Creatinine [Mass ratio] 33.1 mg/mg Normal [facility] Comment on above: Performed By: #### C MP #### [facility] [address] [place] [address] Dr. Ruddy Oswald CBC AUTO DIFFon 01-31-2022 BASO # 0.0 103/ul Normal 0.0-0.1 [facility] Comment on above: Performed By: #### C BC #### [facility] [address] [place] [address] Dr. Ruddy Oswald Basophils/100 WBC (Bld) 0.7 % Normal 0.2-2.0 [facility] Comment on above: Performed By: #### C BC #### [facility] [address] [place] [address] Dr. Ruddy Oswald EO # 0.1 103/ul Normal 0.0-0.7 [facility] Comment on above: Performed By: #### C BC #### [facility] [address] [place] [address] Dr. Ruddy Oswald Eosinophils/100 WBC (Bld) 2.4 % Normal 0.9-7.0 [facility] Comment on above: Performed By: #### C BC #### [facility] [address] [place] [address] Dr. Ruddy Oswald Erythrocyte distribution width (RBC) [Ratio] 13.8 % Normal 11.0-15.0 [facility] Comment on above: Performed By: #### C BC #### [facility] [address] [place] [address] Dr. Ruddy Oswald Hematocrit (Bld) [Volume fraction] 39.0 % Normal 36.0-48.0 [facility] Comment on above: Performed By: #### C BC #### [facility] [address] [place] [address] Dr. Ruddy Oswald Hemoglobin (Bld) [Mass/Vol] 11.8 g/dL Critically low 12.0-16.0 [facility] Comment on above: Performed By: #### C BC #### [facility] [address] [place] [address] Dr. Ruddy Oswald IG # 0.01 10e3/ul Normal 0.00-0.03 [facility] Comment on above: Performed By: #### C BC #### [facility] [address] [place] [address] Dr. Ruddy Oswald IG % 0.2 % Normal 0.0-0.5 [facility] Comment on above: Performed By: #### C BC #### [facility] [address] [place] [address] Dr. Ruddy Oswald LYMPH # 1.5 103/ul Normal 1.2-3.8 [facility] Comment on above: Performed By: #### C BC #### [facility] [address] [place] [address] Dr. Ruddy Oswald Lymphocytes/100 WBC (Bld) 35.6 % Normal 20.5-60.0 [facility] Comment on above: Performed By: #### C BC #### [facility] [address] [place] [address] Dr. Ruddy Oswald MANUAL DIFF REQ NO Normal [facility] Comment on above: Performed By: #### C BC #### [facility] [address] [place] [address] Dr. Ruddy Oswald MCH (RBC) [Entitic mass] 26.1 pg Critically low 26.7-34.0 [facility] Comment on above: Performed By: #### C BC #### [facility] [address] [place] [address] Dr. Ruddy Oswald MCHC (RBC) [Mass/Vol] 30.3 g/dL Normal 29.9-35.2 [facility] Comment on above: Performed By: #### C BC #### [facility] [address] [address] [address] Ruddy Oswald MCV (RBC) [Entitic vol] 86.3 fL Normal 81.0-99.0 [facility] Comment on above: Performed By: #### C BC #### [facility] [address] [address] [address] Ruddy Oswald MONO # 0.3 103/ul Normal 0.3-0.8 [facility] Comment on above: Performed By: #### C BC #### [facility] [address] [address] [address] Ruddy Oswald Monocytes/100 WBC (Bld) 6.7 % Normal 1.7-12.0 [facility] Comment on above: Performed By: #### C BC #### [facility] [address] [place] [address] Dr. Ruddy Oswald NEUT # 2.3 103/ul Normal 1.4-6.5 [facility] Comment on above: Performed By: #### C BC #### [facility] [address] [place] [address] Dr. Ruddy Oswald Neutrophils/100 WBC (Bld) 54.4 % Normal 43.0-75.0 [facility] Comment on above: Performed By: #### C BC #### [facility] [address] [place] [address] Dr. Ruddy Oswald Platelet mean volume (Bld) [Entitic vol] 9.7 fL Normal 9.5-13.5 [facility] Comment on above: Performed By: #### C BC #### [facility] [address] [place] [address] Dr. Ruddy Oswald PLT 318 103/ul Normal 150-450 [facility] Comment on above: Performed By: #### C BC #### [facility] [address] [place] [address] Dr. Ruddy Oswald RBC 4.52 106/ul Normal 4.20-5.40 [facility] Comment on above: Performed By: #### C BC #### [facility] [address] [address] [address] Ruddy Oswald WBC 4.2 103/ul Normal 4.0-11.0 [facility] Comment on above: Performed By: #### C BC #### [facility] [address] [place] [address] Dr. Ruddy Oswald LIPID PROFILEon 01-31-2022 CHOL-HDL RATIO NORM SEE BELOW Normal [facility] Comment on above: Result Comment: 3.3 - 4.4 LOW RISK 4.4 - 7.1 AVERAGE RISK 7.1 - 11.0 MODERATE RISK >11.0 HIGH RISK Performed By: #### L IPID, CMP #### [facility] [address] [place] [address] Dr. Ruddy Oswald Cholesterol [Mass/Vol] 192 mg/dL Normal <=200 [facility] Comment on above: Performed By: #### L IPID, CMP #### [facility] [address] [place] [address] Dr. Ruddy Oswald Cholesterol in HDL [Mass/Vol] 60 mg/dL Normal 40-60 [facility] Comment on above: Performed By: #### L IPID, CMP #### [facility] [address] [place] [address] Dr. Ruddy Oswald Cholesterol in LDL [Mass/Vol] 109.0 mg/dL Normal [facility] Comment on above: Performed By: #### L IPID, CMP #### [facility] [address] [place] [address] Dr. Ruddy Oswald Cholesterol.total/C holesterol in HDL [Mass ratio] 3.2 {ratio} Normal [facility] Comment on above: Performed By: #### L IPID, CMP #### [facility] [address] [place] [address] Dr. Ruddy Oswald HDL NORMAL > or = 60 mg/dl - LO W CARDIOVASCULAR RISK <40 mg/dl - HIGH CARDIOVASCULAR RISK Normal [facility] Comment on above: Performed By: #### L IPID, CMP #### [facility] [address] [place] [address] Dr. Ruddy Oswald LDL CALC NORMAL SEE BELOW Normal [facility] Comment on above: Result Comment: <100 mg/dl OPTIMAL 100 - 129 mg/dl NEAR OR ABOVE OPTIMAL 130 - 159 mg/dl BORDERLINE HIGH 160 - 189 mg/dl HIGH >190 mg/dl VERY HIGH Performed By: #### L IPID, CMP #### [facility] [address] [address] [address] Ruddy Oswald Triglyceride [Mass/Vol] 115 mg/dL Normal <=150 [facility] Comment on above: Performed By: #### L IPID, CMP #### [facility] [address] [address] [address] Ruddy Oswald VLDL CALC 23.0 mg/dL Normal [facility] Comment on above: Performed By: #### L IPID, CMP #### [facility] [address] [place] [address] Dr. Ruddy Oswald MICROALBUMIN, RAND URon 07-0 mALB <1.3 Normal <=30.0 [facility] Comment on above: Performed By: #### M ALBR #### [facility] [address] [place] [address] Dr. Ruddy Oswald PROF 14(COMP METB)on 022 Albumin [Mass/Vol] 3.6 g/dL Normal 3.4-5.0 [facility] Comment on above: Performed By: #### L IPID, CMP #### [facility] [address] [place] [address] Dr. Ruddy Oswald Albumin/Globulin [Mass ratio] 1.1 {ratio} Normal [facility] Comment on above: Performed By: #### L IPID, CMP #### [facility] [address] [address] [address] Ruddy Oswald ALP [Catalytic activity/Vol] 57 U/L Normal 46-116 [facility] Comment on above: Performed By: #### L IPID, CMP #### [facility] [address] [place] [address] Dr. Ruddy Oswald ALT [Catalytic activity/Vol] 23 U/L Normal 14-59 [facility] Comment on above: Performed By: #### L IPID, CMP #### [facility] [address] [address] [address] Ruddy Oswald Anion gap [Moles/Vol] 11.0 mmol/L Normal [facility] Comment on above: Performed By: #### L IPID, CMP #### [facility] [address] [address] [address] Ruddy Oswald AST [Catalytic activity/Vol] 15 U/L Normal 15-37 [facility] Comment on above: Performed By: #### L IPID, CMP #### [facility] [address] [address] [address] Ruddy Oswald Bilirubin [Mass/Vol] 0.3 mg/dL Normal 0.2-1.0 [facility] Comment on above: Performed By: #### L IPID, CMP #### [facility] [address] [address] [address] Ruddy Oswald Calcium [Mass/Vol] 9.1 mg/dL Normal 8.5-10.1 [facility] Comment on above: Performed By: #### L IPID, CMP #### [facility] [address] [address] [address] Ruddy Oswald Chloride [Moles/Vol] 106 mmol/L Normal 98-107 [facility] Comment on above: Performed By: #### L IPID, CMP #### [facility] [address] [address] [address] Ruddy Oswald CO2 [Moles/Vol] 30.0 mmol/L Normal 21.0-32.0 [facility] Comment on above: Performed By: #### L IPID, CMP #### [facility] [address] [address] [address] Ruddy Oswald Creatinine [Mass/Vol] 0.98 mg/dL Normal 0.55-1.02 [facility] Comment on above: Performed By: #### L IPID, CMP #### [facility] [address] [address] [address] Ruddy Oswald EGFR-AF CITIZ[place] >60 Normal >=60 [facility] Comment on above: Performed By: #### L IPID, CMP #### [facility] [address] [address] [address] Ruddy Oswald EGFR-NON AF [place]IZEN [place] 57 mL/min/1.73m2 Critically low >=60 [facility] Comment on above: Performed By: #### L IPID, CMP #### [facility] [address] [address] [address] Ruddy Oswald Globulin (S) [Mass/Vol] 3.4 g/dL Normal [facility] Comment on above: Performed By: #### L IPID, CMP #### [facility] [address] [place] [address] Dr. Ruddy Oswald Glucose [Mass/Vol] 121 mg/dL Critically high 74-106 [facility] Comment on above: Performed By: #### L IPID, CMP #### [facility] [address] [place] [address] Dr. Ruddy Oswald Potassium [Moles/Vol] 5.0 mmol/L Normal 3.5-5.1 [facility] Comment on above: Performed By: #### L IPID, CMP #### [facility] [address] [place] [address] Dr. Ruddy Oswald Protein [Mass/Vol] 7.0 g/dL Normal 6.4-8.2 [facility] Comment on above: Performed By: #### L IPID, CMP #### [facility] [address] [place] [address] Dr. Ruddy Oswald Sodium [Moles/Vol] 142 mmol/L Normal 136-145 [facility] Comment on above: Performed By: #### L IPID, CMP #### [facility] [address] [place] [address] Dr. Ruddy Oswald Urea nitrogen [Mass/Vol] 30.0 mg/dL Critically high 7.0-18.0 [facility] Comment on above: Performed By: #### L IPID, CMP #### [facility] [address] [place] [address] Dr. Ruddy Oswald Urea nitrogen/Creatinine [Mass ratio] 30.6 mg/mg Normal [facility] Comment on above: Performed By: #### L IPID, [facility] #### [facility] [address] [place] [address] Dr. Ruddy Oswald US BREAST LEFT LIMITEDon US BREAST LEFT LIMITED Patient: CAMILLA MERAZ. Exam Date: 11/08/2021 : 1955 Gender:F Ordering : DR PRAVEEN YODER D.O. Admission #: [id number] Family : Order #: [id number] CLICK HERE TO VIEW EXAM RADIOLOGY REPORT [...] M.D. on 11/08/2021 at 09:55 Normal [facility] MG MAMM SCREEN 3D NITHYA CADon 09-28-2021 MG MAMM SCREEN 3D NITHYA CAD Patient: CAMILLA MERAZ. Exam Date: 09/28/2021 : 1955 Gender:F Ordering : DR PRAVEEN YODER D.O. Admission #: [id number] Family : Order #: [id number] CLICK HERE TO VIEW EXAM RADIOLOGY REPORT [...] leukemia cancer at age 78. LOCATION: [facility] BREAST COMPOSITION: Scattered areas fibroglandular density. [...] Diaz M.D. on 09/28/2021 at 11:12 Normal [facility] XR DEXA BONE DENSITYon 09-28 XR [...] by: FUAD DIAZ Date: 2021-09-28 14:43 Normal [facility] Encounters Encounter Date Encounter Type Care Provider Facility Start: 05-11-[address] PRAVEEN YODER Fac ility:[facility] Start: 04-22-2022 End: 04-22-[address] PRAVEEN YODER Facility:[facility] Start: 01-31-2022 End: 02-01-[address] PRAVEEN YODER Facility:[facility] Start: 11-08-2021 End: 11-09-[address] PRAVEEN YODER Facility:[facility] Start: 09-28-2021 End: 09-29-[address] PRAVEEN YODER Facility:[facility] Payers Date Payer Category Payer Unknown [id number] 1955 Unknown [id number] [id number] [id number] 1955 Unknown [id number] 2.16.84 [id number] 1955 Unknown [id number] 2.16.84 [id number] 1955 Unknown [id number] 2.16.84 [id number] 1955 Unknown [id number] 2.16.84 [id number] Summary Purpose Family History No Family History Records Found Advance Directives No Advanced Directives Records Found Additional Source Comments INFORMATION SOURCE (unrecogn ized section and content) DATE CREATED AUTHOR 05/09/2022 [facility] FOR RECORDS PERTAINING TO PATIENTS WHO [...] BE BASED ON THE PRIMARY CLINICAL RECORDS. [facility]. provides no warranty or guarantee of the accuracy or completeness of information in this document.
--- NOTE | 2024-04-24 07:06 | US_ITS ---
The [address] [address] Patient Name: CAMILLA MERAZ MRN: [id number] date: 1955 Sex: F Assigned Patient Location: US Current Patient Location: US Accession/Order Number: [id number] Exam Date: 04/24/2024 07:08 Report Date: 04/24/2024 08:15 At the request of: PRAVEEN YODER Procedure: US right upper quadrant EXAMINATION: US right upper quadrant HISTORY: Right upper quadrant pain R10.11 COMPARISON: CT abdomen pelvis 04/22/2022 TECHNIQUE: Transabdominal evaluation of the right upper quadrant. FINDINGS: LIVER: Within left hepatic lobe is a 2.5 x 1.5 x 1.2 cm cyst, also seen on prior CT study. Color Doppler demonstrates patent hepatic veins. PORTAL VEIN: Duplex Doppler demonstrates normal hepatopetal flow pattern with flow velocity averaging cm/s. GALLBLADDER: No visible gallstones, wall thickening, or pericholecystic free fluid. Negative sonographic Rousseau's sign. BILIARY: No abnormal dilation or stones. Common bile duct diameter is within normal limits. PANCREAS: No visible mass, abnormal atrophy, or duct dilation. KIDNEY: No hydronephrosis. No visible mass or stones. Size: 11.2 x 5.8 x 5.0 cm US/US right upper quadrant IMPRESSION: 1. No acute or suspicious right upper quadrant findings to account for patient's symptoms. Electronically authenticated by: PRITI TAVAREZ Date: 04/24/2024 08:15
--- NOTE | 2024-04-24 07:25 | NM_ITS ---
The [address] [address] Patient Name: CAMILLA MERAZ MRN: [id number] date: 1955 Sex: F Assigned Patient Location: Current Patient Location: [place] Accession/Order Number: [id number] Exam Date: 04/24/2024 07:25 Report Date: 04/24/2024 11:10 At the request of: PRAVEEN YODER Procedure: NM hepatobiliary w pharm EXAMINATION: NM hepatobiliary w pharm HISTORY: RIGHT UPPER QUADRANT PAIN COMPARISON: No relevant comparison available. TECHNIQUE: Radionuclide hepatobiliary imaging was performed after intravenous injection of 5.0 mCi Tc-99m SILAS derivative with sequential acquisitions every 1 minute for one hour. Hepatobiliary imaging with gallbladder ejection fraction analysis was then performed with sequential imaging every 1 minute for 60 minutes following ingestion of 8 oz. Ensure Plus. FINDINGS: LIVER: Normal, prompt and uniform radiotracer uptake and clearing. BILIARY DUCTS: Normal radioisotopic biliary excretion. GALLBLADDER: Normal with no evidence of cystic duct obstruction. INTESTINE: Normal with no evidence of common biliary ductal obstruction. EJECTION FRACTION: 45 % within 60 minutes. (Normal EF > 38%). OTHER: Negative. MT/MT hepatobiliary w pharm IMPRESSION: 1. Normal nuclear medicine HIDA scan. Electronically authenticated by: PRITI TAVAREZ Date: 04/24/2024 11:10
== END 2024-04-24 07:04 | disposition home or self-care (01) ==
LOC: US 07:03
PROVIDERS: PCP Family Medicine; Visit Provider Family Medicine
DX: R10.11 Right upper quadrant pain (principal); K76.89 Other specified diseases of liver
CPT/HCPCS: 76705; 78227; A9537

== ENCOUNTER 2024-05-13 20:57 | Emergency (ER) | payer MEDICARE, SELFPAY ==
[2024-05-13 21:00] VITALS: BP 143/77; PULSE 61; TEMP 36.6; O2SAT 97; BMI 38.7
--- OUTSIDE RECORDS SUMMARY | 2024-05-13 21:02 | XMS_ITS | CCD ---
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 Ruddy Oswald Basophils/100 WBC (Bld) 0.7 % Normal 0.2-2.0 [facility] Comment on above: Performed By: #### C BC #### [facility] [address] [address] [address] Ruddy Oswald EO # 0.1 103/ul Normal 0.0-0.7 [facility] Comment on above: Performed By: #### C BC #### [facility] [address] [address] [address] Ruddy Oswald Eosinophils/100 WBC (Bld) 1.4 % Normal 0.9-7.0 [facility] Comment on above: Performed By: #### C BC #### [facility] [address] [address] [address] Ruddy Oswald Erythrocyte distribution width (RBC) [Ratio] 14.6 % Normal 11.0-15.0 [facility] Comment on above: Performed By: #### C BC #### [facility] [address] [address] [address] Ruddy Oswald Hematocrit (Bld) [Volume fraction] 40.2 % Normal 36.0-48.0 [facility] Comment on above: Performed By: #### C BC #### [facility] [address] [address] [address] Ruddy Oswald Hemoglobin (Bld) [Mass/Vol] 12.6 g/dL Normal 12.0-16.0 [facility] Comment on above: Performed By: #### C BC #### [facility] [address] [address] [address] Ruddy Oswald IG # 0.01 10e3/ul Normal 0.00-0.03 [facility] Comment on above: Performed By: #### C BC #### [facility] [address] [address] [address] Ruddy Oswald IG % 0.2 % Normal 0.0-0.5 [facility] Comment on above: Performed By: #### C BC #### [facility] [address] [address] [address] Ruddy Oswald LYMPH # 1.5 103/ul Normal 1.2-3.8 [facility] Comment on above: Performed By: #### C BC #### [facility] [address] [address] [address] Ruddy Oswald Lymphocytes/100 WBC (Bld) 32.8 % Normal 20.5-60.0 [facility] Comment on above: Performed By: #### C BC #### [facility] [address] [address] [address] Ruddy Oswald MANUAL DIFF REQ NO Normal [facility] Comment on above: Performed By: #### C BC #### [facility] [address] [place] [address] Dr. Ruddy Oswald MCH (RBC) [Entitic mass] 26.7 pg Normal 26.7-34.0 [facility] Comment on above: Performed By: #### C BC #### [facility] [address] [address] [address] Ruddy Oswald MCHC (RBC) [Mass/Vol] 31.3 g/dL Normal 29.9-35.2 [facility] Comment on above: Performed By: #### C BC #### [facility] [address] [address] [address] Ruddy Oswald MCV (RBC) [Entitic vol] 85.2 fL Normal 81.0-99.0 [facility] Comment on above: Performed By: #### C BC #### [facility] [address] [address] [address] Ruddy Oswald MONO # 0.4 103/ul Normal 0.3-0.8 [facility] Comment on above: Performed By: #### C BC #### [facility] [address] [place] [address] Dr. Ruddy Oswald Monocytes/100 WBC (Bld) 8.6 % Normal 1.7-12.0 [facility] Comment on above: Performed By: #### C BC #### [facility] [address] [place] [address] Dr. Ruddy Oswald NEUT # 2.5 103/ul Normal 1.4-6.5 [facility] Comment on above: Performed By: #### C BC #### [facility] [address] [place] [address] Dr. Ruddy Oswald Neutrophils/100 WBC (Bld) 56.3 % Normal 43.0-75.0 [facility] Comment on above: Performed By: #### C BC #### [facility] [address] [place] [address] Dr. Ruddy Oswald Platelet mean volume (Bld) [Entitic vol] 9.4 fL Critically low 9.5-13.5 [facility] Comment on above: Performed By: #### C BC #### [facility] [address] [place] [address] Dr. Ruddy Oswald PLT 269 103/ul Normal 150-450 [facility] Comment on above: Performed By: #### C BC #### [facility] [address] [address] [address] Ruddy Oswald RBC 4.72 106/ul Normal 4.20-5.40 [facility] Comment on above: Performed By: #### C BC #### [facility] [address] [address] [address] Ruddy Osawld WBC 4.4 103/ul Normal 4.0-11.0 [facility] Comment on above: Performed By: #### C BC #### [facility] [address] ABD/PELVIS WO CONon [...] SHADY WARE Date: 2022-04-22 12:27 Normal [facility] PROF 14(COMP METB)on 022 Albumin [Mass/Vol] 3.9 g/dL Normal 3.4-5.0 [facility] Comment on above: Performed By: #### C MP #### [facility] [address] [address] [address] Ruddy Oswald Albumin/Globulin [Mass ratio] 1.2 {ratio} Normal [facility] Comment on above: Performed By: #### C MP #### [facility] [address] [place] [address] Dr. Ruddy Oswald ALP [Catalytic activity/Vol] 53 U/L Normal 46-116 [facility] Comment on above: Performed By: #### C MP #### [facility] [address] [place] [address] Dr. Ruddy Oswald ALT [Catalytic activity/Vol] 20 U/L Normal 14-59 [facility] Comment on above: Performed By: #### C MP #### [facility] [address] [place] [address] Dr. Ruddy Oswald Anion gap [Moles/Vol] 9.1 mmol/L Normal [facility] Comment on above: Performed By: #### C MP #### [facility] [address] [place] [address] Dr. Ruddy Oswald AST [Catalytic activity/Vol] 13 U/L Critically low 15-37 [facility] Comment on above: Performed By: #### C MP #### [facility] [address] [place] [address] Dr. Ruddy Oswald Bilirubin [Mass/Vol] 0.4 mg/dL Normal 0.2-1.0 [facility] Comment on above: Performed By: #### C MP #### [facility] [address] [place] [address] Dr. Ruddy Oswald Calcium [Mass/Vol] 9.3 mg/dL Normal 8.5-10.1 [facility] Comment on above: Performed By: #### C MP #### [facility] [address] [place] [address] Dr. Ruddy Oswald Chloride [Moles/Vol] 104 mmol/L Normal 98-107 [facility] Comment on above: Performed By: #### C MP #### [facility] [address] [place] [address] Dr. Ruddy Oswald CO2 [Moles/Vol] 29.9 mmol/L Normal 21.0-32.0 [facility] Comment on above: Performed By: #### C MP #### [facility] [address] [address] [address] Ruddy Oswald Creatinine [Mass/Vol] 1.21 mg/dL Critically high 0.55-1.02 [facility] Comment on above: Performed By: #### C MP #### [facility] [address] [address] [address] Ruddy Oswald EGFR-AF MOZAMBICAN 54 mL/min/1.73m2 Critically low >=60 [facility] Comment on above: Performed By: #### C MP #### [facility] [address] [address] [address] Ruddy Oswald EGFR-NON AF MOZAMBICAN 45 mL/min/1.73m2 Critically low >=60 [facility] Comment on above: Performed By: #### C MP #### [facility] [address] [address] [address] Ruddy Oswald Globulin (S) [Mass/Vol] 3.3 g/dL Normal [facility] Comment on above: Performed By: #### C MP #### [facility] [address] [address] [address] Ruddy Oswald Glucose [Mass/Vol] 121 mg/dL Critically high 74-106 [facility] Comment on above: Performed By: #### C MP #### [facility] [address] [address] [address] Ruddy Oswald Potassium [Moles/Vol] 4.0 mmol/L Normal 3.5-5.1 [facility] Comment on above: Performed By: #### C MP #### [facility] [address] [address] [address] Ruddy Oswald Protein [Mass/Vol] 7.2 g/dL Normal 6.4-8.2 [facility] Comment on above: Performed By: #### C MP #### [facility] [address] [address] [address] Ruddy Oswald Sodium [Moles/Vol] 139 mmol/L Normal 136-145 [facility] Comment on above: Performed By: #### C MP #### [facility] [address] [address] [address] Ruddy Oswald Urea nitrogen [Mass/Vol] 40.0 mg/dL Critically high 7.0-18.0 [facility] Comment on above: Performed By: #### C MP #### [facility] [address] [place] [address] Dr. Ruddy Oswald Urea nitrogen/Creatinine [Mass ratio] 33.1 mg/mg Normal [facility] Comment on above: Performed By: #### C MP #### [facility] [address] [place] [address] Dr. Ruddy Oswald CBC AUTO DIFFon 01-31-2022 BASO # 0.0 103/ul Normal 0.0-0.1 [facility] Comment on above: Performed By: #### C BC #### [facility] [address] [place] [address] Dr. Ruddy Oswald Basophils/100 WBC (Bld) 0.7 % Normal 0.2-2.0 [facility] Comment on above: Performed By: #### C BC #### [facility] [address] [place] [address] Dr. Ruddy Oswald EO # 0.1 103/ul Normal 0.0-0.7 [facility] Comment on above: Performed By: #### C BC #### [facility] [address] [place] [address] Dr. Ruddy Oswald Eosinophils/100 WBC (Bld) 2.4 % Normal 0.9-7.0 [facility] Comment on above: Performed By: #### C BC #### [facility] [address] [place] [address] Dr. Ruddy Oswald Erythrocyte distribution width (RBC) [Ratio] 13.8 % Normal 11.0-15.0 [facility] Comment on above: Performed By: #### C BC #### [facility] [address] [place] [address] Dr. Ruddy Oswald Hematocrit (Bld) [Volume fraction] 39.0 % Normal 36.0-48.0 [facility] Comment on above: Performed By: #### C BC #### [facility] [address] [place] [address] Dr. Ruddy Oswald Hemoglobin (Bld) [Mass/Vol] 11.8 g/dL Critically low 12.0-16.0 [facility] Comment on above: Performed By: #### C BC #### [facility] [address] [place] [address] Dr. Ruddy Oswald IG # 0.01 10e3/ul Normal 0.00-0.03 [facility] Comment on above: Performed By: #### C BC #### [facility] [address] [place] [address] Dr. Ruddy Oswald IG % 0.2 % Normal 0.0-0.5 [facility] Comment on above: Performed By: #### C BC #### [facility] [address] [place] [address] Dr. Ruddy Oswald LYMPH # 1.5 103/ul Normal 1.2-3.8 [facility] Comment on above: Performed By: #### C BC #### [facility] [address] [place] [address] Dr. Ruddy Oswald Lymphocytes/100 WBC (Bld) 35.6 % Normal 20.5-60.0 [facility] Comment on above: Performed By: #### C BC #### [facility] [address] [place] [address] Dr. Ruddy Oswald MANUAL DIFF REQ NO Normal [facility] Comment on above: Performed By: #### C BC #### [facility] [address] [place] [address] Dr. Ruddy Oswald MCH (RBC) [Entitic mass] 26.1 pg Critically low 26.7-34.0 [facility] Comment on above: Performed By: #### C BC #### [facility] [address] [place] [address] Dr. Ruddy Oswald MCHC (RBC) [Mass/Vol] 30.3 g/dL Normal 29.9-35.2 [facility] Comment on above: Performed By: #### C BC #### [facility] [address] [address] [address] Ruddy Oswald MCV (RBC) [Entitic vol] 86.3 fL Normal 81.0-99.0 [facility] Comment on above: Performed By: #### C BC #### [facility] [address] [address] [address] Ruddy Oswald MONO # 0.3 103/ul Normal 0.3-0.8 [facility] Comment on above: Performed By: #### C BC #### [facility] [address] [address] [address] Ruddy Oswald Monocytes/100 WBC (Bld) 6.7 % Normal 1.7-12.0 [facility] Comment on above: Performed By: #### C BC #### [facility] [address] [place] [address] Dr. Ruddy Oswald NEUT # 2.3 103/ul Normal 1.4-6.5 [facility] Comment on above: Performed By: #### C BC #### [facility] [address] [place] [address] Dr. Ruddy Oswald Neutrophils/100 WBC (Bld) 54.4 % Normal 43.0-75.0 [facility] Comment on above: Performed By: #### C BC #### [facility] [address] [place] [address] Dr. Ruddy Oswald Platelet mean volume (Bld) [Entitic vol] 9.7 fL Normal 9.5-13.5 [facility] Comment on above: Performed By: #### C BC #### [facility] [address] [place] [address] Dr. Ruddy Oswald PLT 318 103/ul Normal 150-450 [facility] Comment on above: Performed By: #### C BC #### [facility] [address] [place] [address] Dr. Ruddy Oswald RBC 4.52 106/ul Normal 4.20-5.40 [facility] Comment on above: Performed By: #### C BC #### [facility] [address] [address] [address] Ruddy Oswald WBC 4.2 103/ul Normal 4.0-11.0 [facility] Comment on above: Performed By: #### C BC #### [facility] [address] [place] [address] Dr. Ruddy Oswald LIPID PROFILEon 01-31-2022 CHOL-HDL RATIO NORM SEE BELOW Normal [facility] Comment on above: Result Comment: 3.3 - 4.4 LOW RISK 4.4 - 7.1 AVERAGE RISK 7.1 - 11.0 MODERATE RISK >11.0 HIGH RISK Performed By: #### L IPID, CMP #### [facility] [address] [place] [address] Dr. Ruddy Oswald Cholesterol [Mass/Vol] 192 mg/dL Normal <=200 [facility] Comment on above: Performed By: #### L IPID, CMP #### [facility] [address] [place] [address] Dr. Ruddy Oswald Cholesterol in HDL [Mass/Vol] 60 mg/dL Normal 40-60 [facility] Comment on above: Performed By: #### L IPID, CMP #### [facility] [address] [place] [address] Dr. Ruddy Oswald Cholesterol in LDL [Mass/Vol] 109.0 mg/dL Normal [facility] Comment on above: Performed By: #### L IPID, CMP #### [facility] [address] [place] [address] Dr. Ruddy Oswald Cholesterol.total/C holesterol in HDL [Mass ratio] 3.2 {ratio} Normal [facility] Comment on above: Performed By: #### L IPID, CMP #### [facility] [address] [place] [address] Dr. Ruddy Oswald HDL NORMAL > or = 60 mg/dl - LO W CARDIOVASCULAR RISK <40 mg/dl - HIGH CARDIOVASCULAR RISK Normal [facility] Comment on above: Performed By: #### L IPID, CMP #### [facility] [address] [place] [address] Dr. Ruddy sOwald LDL CALC NORMAL SEE BELOW Normal [facility] Comment on above: Result Comment: <100 mg/dl OPTIMAL 100 - 129 mg/dl NEAR OR ABOVE OPTIMAL 130 - 159 mg/dl BORDERLINE HIGH 160 - 189 mg/dl HIGH >190 mg/dl VERY HIGH Performed By: #### L IPID, CMP #### [facility] [address] [address] [address] Ruddy Oswald Triglyceride [Mass/Vol] 115 mg/dL Normal <=150 [facility] Comment on above: Performed By: #### L IPID, CMP #### [facility] [address] [address] [address] Ruddy Oswald VLDL CALC 23.0 mg/dL Normal [facility] Comment on above: Performed By: #### L IPID, CMP #### [facility] [address] [place] [address] Dr. Ruddy Oswald MICROALBUMIN, RAND URon 07-0 mALB <1.3 Normal <=30.0 [facility] Comment on above: Performed By: #### M ALBR #### [facility] [address] [place] [address] Dr. Ruddy Oswald PROF 14(COMP METB)on 022 Albumin [Mass/Vol] 3.6 g/dL Normal 3.4-5.0 [facility] Comment on above: Performed By: #### L IPID, CMP #### [facility] [address] [place] [address] Dr. Ruddy Oswald Albumin/Globulin [Mass ratio] 1.1 {ratio} Normal [facility] Comment on above: Performed By: #### L IPID, CMP #### [facility] [address] [address] [address] Ruddy Oswald ALP [Catalytic activity/Vol] 57 U/L Normal 46-116 [facility] Comment on above: Performed By: #### L IPID, CMP #### [facility] [address] [place] [address] Dr. Ruddy Oswald ALT [Catalytic activity/Vol] 23 U/L Normal 14-59 [facility] Comment on above: Performed By: #### L IPID, CMP #### [facility] [address] [address] [address] Ruddy Oswald Anion gap [Moles/Vol] 11.0 mmol/L Normal [facility] Comment on above: Performed By: #### L IPID, CMP #### [facility] [address] [address] [address] Ruddy Oswald AST [Catalytic activity/Vol] 15 U/L Normal 15-37 [facility] Comment on above: Performed By: #### L IPID, CMP #### [facility] [address] [address] [address] Ruddy Oswald Bilirubin [Mass/Vol] 0.3 mg/dL Normal 0.2-1.0 [facility] Comment on above: Performed By: #### L IPID, CMP #### [facility] [address] [address] [address] Ruddy Oswald Calcium [Mass/Vol] 9.1 mg/dL Normal 8.5-10.1 [facility] Comment on above: Performed By: #### L IPID, CMP #### [facility] [address] [address] [address] Ruddy Oswald Chloride [Moles/Vol] 106 mmol/L Normal 98-107 [facility] Comment on above: Performed By: #### L IPID, CMP #### [facility] [address] [address] [address] Ruddy Oswald CO2 [Moles/Vol] 30.0 mmol/L Normal 21.0-32.0 [facility] Comment on above: Performed By: #### L IPID, CMP #### [facility] [address] [address] [address] Ruddy Oswald Creatinine [Mass/Vol] 0.98 mg/dL Normal 0.55-1.02 [facility] Comment on above: Performed By: #### L IPID, CMP #### [facility] [address] [address] [address] Ruddy Oswald EGFR-AF MOZAMBICAN >60 Normal >=60 [facility] Comment on above: Performed By: #### L IPID, CMP #### [facility] [address] [address] [address] Ruddy Oswald EGFR-NON AF MOZAMBICAN 57 mL/min/1.73m2 Critically low >=60 [facility] Comment on above: Performed By: #### L IPID, CMP #### [facility] [address] [address] [address] Ruddy Oswald Globulin (S) [Mass/Vol] 3.4 g/dL Normal [facility] Comment on above: Performed By: #### L IPID, CMP #### [facility] [address] [place] [address] Dr. Ruddy Oswald Glucose [Mass/Vol] 121 mg/dL Critically high 74-106 [facility] Comment on above: Performed By: #### L IPID, CMP #### [facility] [address] [place] [address] Dr. Ruddy Oswald Potassium [Moles/Vol] 5.0 mmol/L Normal 3.5-5.1 [facility] Comment on above: Performed By: #### L IPID, CMP #### [facility] [address] [place] [address] Dr. Ruddy Oswald Protein [Mass/Vol] 7.0 g/dL Normal 6.4-8.2 [facility] Comment on above: Performed By: #### L IPID, CMP #### [facility] [address] [place] [address] Dr. Ruddy Oswald Sodium [Moles/Vol] 142 mmol/L Normal 136-145 [facility] Comment on above: Performed By: #### L IPID, CMP #### [facility] [address] [place] [address] Dr. Ruddy Oswald Urea nitrogen [Mass/Vol] 30.0 mg/dL Critically high 7.0-18.0 [facility] Comment on above: Performed By: #### L IPID, CMP #### [facility] [address] [place] [address] Dr. Ruddy Oswald Urea nitrogen/Creatinine [Mass ratio] 30.6 mg/mg Normal [facility] Comment on above: Performed By: #### L IPID, [facility] #### [facility] [address] [place] [address] Dr. Ruddy Oswald US BREAST LEFT LIMITEDon US BREAST LEFT LIMITED Patient: CAMILLA MERAZ. Exam Date: 11/08/2021 : 1955 Gender:F Ordering : DR PRAVEEN YODER D.O. Admission #: [id number] Family : Order #: [id number] CLICK HERE TO VIEW EXAM RADIOLOGY REPORT [...] M.D. on 11/08/2021 at 09:55 Normal [facility] MG MAMM SCREEN 3D NITHYA CADon 09-28-2021 MG MAMM SCREEN 3D NITHYA CAD Patient: CAMILLA MERAZ. Exam Date: 09/28/2021 : 1955 Gender:F Ordering : DR PRAVEEN YODER D.O. Admission #: [id number] Family : Order #: [id number] CLICK HERE TO VIEW EXAM RADIOLOGY REPORT [...] leukemia cancer at age 78. LOCATION: [facility] BREAST COMPOSITION: Scattered areas fibroglandular density. [...] Diaz M.D. on 09/28/2021 at 11:12 Normal [facility] XR DEXA BONE DENSITYon 09-28 XR [...] by: FUAD DIAZ Date: 2021-09-28 14:43 Normal [facility] Encounters Encounter Date Encounter Type Care Provider Facility Start: 05-11-[address] PRAVEEN YODER Fac ility:[facility] Start: 04-22-2022 End: 04-22-[address] PRAVEEN YODER Facility:[facility] Start: 01-31-2022 End: 02-01-[address] PRAVEEN YODER Facility:[facility] Start: 11-08-2021 End: 11-09-[address] PRAVEEN YODER Facility:[facility] Start: 09-28-2021 End: 09-29-[address] PRAVEEN YODER Facility:[facility] Payers Date Payer Category Payer Unknown [id number] 1955 Unknown [id number] 2.16.84 [id number] 1955 Unknown [id number] 2.16.84 [id number] 1955 Unknown [id number] 2.16.84 [id number] 1955 Unknown [id number] 2.16.84 [id number] 1955 Unknown [id number] 2.16.84 [id number] Summary Purpose Family History No Family History Records Found Advance Directives No Advanced Directives Records Found Additional Source Comments INFORMATION SOURCE (unrecogn ized section and content) DATE CREATED AUTHOR 05/09/2022 [facility] FOR RECORDS PERTAINING TO PATIENTS WHO [...] BE BASED ON THE PRIMARY CLINICAL RECORDS. [employer] [facility]. provides no warranty or guarantee of the accuracy or completeness of information in this document.
--- NOTE | 2024-05-13 21:08 | CT_ITS ---
[address] [address] Patient Name: CAMILLA MERAZ MRN: [id number] date: 1955 Sex: F Assigned Patient Location: ER Current Patient Location: ER Accession/Order Number: [id number] Exam Date: 05/13/2024 22:20 Report Date: 05/13/2024 22:56 At the request of: LIZABETH ALLEN Procedure: CT abdomen pelvis w con HISTORY: Right sided abdominal pain TECHNIQUE: CT images were obtained of the abdomen and pelvis following the administration of intravenous contrast. Enteric contrast was also administered. Dose reduction techniques were achieved by using automated exposure control and/or adjustment of mA and/or kV according to patient size and/or use of iterative reconstruction technique. COMPARISON: CT abdomen/pelvis 04/22/2022 FINDINGS: Lung Bases: No focal consolidation. Lower Heart: Unremarkable. Liver: Fluid attenuation lesion of the left hepatic lobe, 2.4 cm, likely cysts. No suspicious lesion. Normal liver contour. Gallbladder: Unremarkable. Pancreas: Uniform enhancement. No ductal dilation. No peripancreatic inflammatory change. Spleen: Unremarkable. Adrenal Glands: No discrete nodule. Kidneys / Ureters / Bladder: Symmetric renal enhancement. Atrophic appearance of the kidneys with right lower pole chronic cortical thinning, likely scarring. No hydroureter. Under distended bladder without focal wall thickening. Delayed images demonstrating excreted contrast within the dependent bladder. Lower esophagus / Stomach: Distal esophagus unremarkable. Contrast material within the stomach with ingested contents. No evidence of focal gastric wall thickening. Bowel / Mesentery: No evidence of obstruction. No free intraabdominal air. Contrast noted within the mid to distal small bowel. Herniation of distal ileum through a small right anterolateral abdominal wall fascial defect, lateral to the right rectus abdominis. Fascial defect measures approximately 1.5 cm in transverse dimension. Scattered colonic diverticulosis without surrounding inflammatory change. Normal appendix. Lymph Nodes: No bulky adenopathy. Vasculature: No aneurysmal dilation. Scattered atherosclerotic calcifications of the abdominal aorta and its major branches. Reproductive Organs: Surgically absent uterus. No evidence of adnexal mass. Extraperitoneal Soft Tissues: Postprocedural changes of the anterior abdominal wall. Bones: Multilevel degenerative changes of the lumbar spine. No concerning lytic or blastic process. CT/CT abdomen pelvis w con IMPRESSION: 1. 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 No evidence of bowel obstruction at this time. 2. No evidence of urinary tract obstruction. Progressive right lower pole cortical scarring. Electronically authenticated by: PRITI PEREZ Date: 05/13/2024 22:56
--- NOTE | 2024-05-13 21:09 | ED.ABDPAIN1 ---
Documented by User: RANDI Mcbride 05/13/24 21:12 HPI - Abdominal Pain General Chief Complaint: Abdominal Pain Stated Complaint: Abdominal Pain Time Seen by Provider: 05/13/24 21:02 Source: patient Mode of arrival: walk-in Limitations: no limitations History of Present Illness HPI narrative: Patient is a 68-year-old female who presents to the emergency department for the evaluation of right-sided abdominal pain that has been present for at least a month, but she feels it worsened today. States the last 2 hours have been more severe. She reports pain in the right mid abdomen without radiation. No rashes or color change. She has been nauseous but has had no vomiting. No diarrhea or urinary symptoms. She has been seen by her PCP for the symptoms, she had an ultrasound of the right upper quadrant and a HIDA scan performed on 04/24/2024. These results were reviewed and both were within normal limits with no evidence of acute process. No medications taken prior to arrival tonight. She reports a previous hysterectomy. Related Data Home Medications ?Medication ?Instructions ?Recorded ?Confirmed aspirin 81 mg tablet,delayed 81 mg PO DAILY 05/13/24 05/13/24 release (Adult Aspirin Regimen) chlorthalidone 25 mg tablet mg 05/13/24 lisinopril 40 mg tablet mg 05/13/24 omeprazole 40 mg capsule,delayed mg 05/13/24 release simvastatin 20 mg tablet mg 05/13/24 Allergies Allergy/AdvReac Type Severity Reaction Status Date / Time No Known Drug Allergies Allergy Verified 05/13/24 21:03 Review of Systems ROS Constitutional Denies: fever or chills Ears, nose, mouth, and throat Denies: throat pain Cardiovascular Denies: chest pain Respiratory Denies: shortness of breath or cough Gastrointestinal Reports: abdominal pain and nausea; Denies: vomiting or diarrhea Genitourinary Denies: painful urination Musculoskeletal Denies: back pain or neck pain Neurological Denies: numbness in extremities or weakness in extremities Hematologic/Lymphatic Denies: easy bruising or easy bleeding PFSH PFSH Social History Little interest or pleasure in doing things: not at all Feeling down, depressed, or hopeless: not at all Exam Narrative Exam Narrative: Gen.: Awake, alert, in no distress Head: Normocephalic, atraumatic ENT: Moist mucous membranes Respiratory: No respiratory distress Gastrointestinal: Abdomen is soft, nondistended and nontender to palpation; no guarding or rebound Extremities: Moves extremities equally Psych: Normal mood and affect Neuro: No focal neuro deficit Skin: Warm, dry, intact; no rash or color change of the right flank Constitutional Vital Signs, click to edit/add: Last Vital Signs Temp 97.8 F 05/13/24 21:00 Pulse 76 05/13/24 22:34 Resp 17 05/13/24 22:34 BP 131/57 05/13/24 22:34 Pulse Ox 99 05/13/24 22:34 O2 Del Method Room Air 05/13/24 21:00 Course Vital Signs Vital signs: Vital Signs Temperature 97.8 F 05/13/24 21:00 Pulse Rate 61 05/13/24 21:00 Respiratory Rate 18 05/13/24 21:00 Blood Pressure 143/77 H 05/13/24 21:00 Pulse Oximetry 97 05/13/24 21:00 Oxygen Delivery Method Room Air 05/13/24 21:00 Temperature 97.8 F 05/13/24 21:00 Pulse Rate 76 05/13/24 22:34 Respiratory Rate 17 05/13/24 22:34 Blood Pressure 131/57 05/13/24 22:34 Pulse Oximetry 99 05/13/24 22:34 Oxygen Delivery Method Room Air 05/13/24 21:00 MDM - Abdominal Pain MDM Narrative Medical decision making narrative: 2110: This patient was ordered to have laboratory testing, urine testing, CT of the abdomen and pelvis with IV and oral contrast as this is the only imaging test she has not had. Reyna Khalil ordered for her. Patient is agreeable to trying oral contrast prior to imaging. Vital signs are stable and abdomen is soft and benign. Case turned over to attending physician at this time for disposition. SHARED APC VISIT, PHYSICIAN ATTESTATION: [id number] I performed a substantive part of the MDM during the patient?s E/M visit. I personally evaluated and examined the patient. I personally made or approved the documented management plan and acknowledge its risk of complications. Medical Records Attestation: I reviewed the patient's medical records. Lab Data Attestation: I reviewed the patient's lab results. Labs: Lab Results 05/13/24 05/13/24 Range/Units 21:20 22:30 WBC 6.2 (4.0-11.0) 10^3/uL RBC 4.65 (4.20-5.40) 10^6/uL Hgb 13.5 (12.0-16.0) g/dL Hct 41.7 (36.0-48.0) % MCV 89.7 (81.0-99.0) fL MCH 29.0 (26.7-34.0) pg MCHC 32.4 (29.9-35.2) g/dL RDW 12.8 (11.0-15.0) % Plt Count 273 (150-450) 10^3/uL MPV 9.5 (9.5-13.5) fL Neut % (Auto) 58.3 (43.0-75.0) % Lymph % (Auto) 31.5 (20.5-60.0) % [place] % (Auto) 7.5 (1.7-12.0) % Eos % (Auto) 1.9 (0.9-7.0) % Baso % (Auto) 0.6 (0.2-2.0) % Neut # (Auto) 3.6 (1.4-6.5) 10^3/uL Lymph # (Auto) 2.0 (1.2-3.8) 10^3/uL [place] # (Auto) 0.5 (0.3-0.8) 10^3/uL Eos # (Auto) 0.1 (0.0-0.7) 10^3/uL Baso # (Auto) 0.0 (0.0-0.1) 10^3/uL Abs Immat Gran (auto) 0.01 (0.00-0.03) 10^3/uL Imm/Tot Granulo (auto) 0.2 (0.0-0.5) % PT 10.1 (9.0-11.6) sec INR 0.95 Sodium 142 (136-145) mmol/L Potassium 3.8 (3.5-5.1) mmol/L Chloride 104 (98-107) mmol/L Carbon Dioxide 28.9 (21.0-32.0) mmol/L Anion Gap 12.9 BUN 34.0 H (7.0-18.0) mg/dL Creatinine 1.34 H (0.55-1.02) mg/dL Est GFR ( Amer) 48 L (>=60 mL/min/1.73m^2) Est GFR (Non-Af Amer) 39 L (>=60 mL/min/1.73m^2) BUN/Creatinine Ratio 25.4 Glucose 120 H (74-106) mg/dL Lactate 1.1 (0.4-2.0) mmol/L Calcium 9.4 (8.5-10.1) mg/dL Total Bilirubin 0.3 (0.2-1.0) mg/dL AST 13 L (15-37) U/L ALT 21 (14-59) U/L Alkaline Phosphatase 65 (46-116) U/L Total Protein 7.3 (6.4-8.2) g/dL Albumin 3.8 (3.4-5.0) g/dL Globulin 3.5 g/dL Albumin/Globulin Ratio 1.1 Lipase 60.0 (16.0-77.0) U/L Urine Color Lt. yellow (YELLOW) Urine Clarity Clear (CLEAR) Urine pH 6.0 (5.0-9.0) Ur Specific [place] 1.015 (1.005-1.025) Urine Protein Negative (NEG/TRACE) mg/dL Urine Glucose (UA) Negative (NEGATIVE) mg/dL Urine Ketones Negative (NEGATIVE) mg/dL Urine Occult Blood Negative (NEGATIVE) Urine Nitrite Negative (NEGATIVE) Urine Bilirubin Negative (NEGATIVE) Urine Urobilinogen 0.2 (0.2-1.0) EU/dL Ur Leukocyte Esterase Negative (NEGATIVE) Imaging Data Abdominal x-ray: Radiologist's impression: ITS Impressions Abdomen/Pelvis CT 05/13/24 21:08 IMPRESSION: 1. 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 No evidence of bowel obstruction at this time. 2. No evidence of urinary tract obstruction. Progressive right lower pole cortical scarring. Electronically authenticated by: PRITI PEREZ Date: 05/13/2024 22:56 Discharge Plan Discharge Chief Complaint: Abdominal Pain Clinical Impression: Abdominal pain, Abdominal wall hernia Patient Disposition: Home, Self-Care Prescriptions / Home Meds: No Action chlorthalidone 25 mg tablet omeprazole 40 mg capsule,delayed release(DR/EC) simvastatin 20 mg tablet lisinopril 40 mg tablet aspirin [Adult Aspirin Regimen] 81 mg tablet,delayed release (DR/EC) 81 mg PO DAILY Print Language: Northern Irish Instructions: Ventral Hernia (ED) Additional Instructions: follow up with Dr Pedersen Referrals: PRAVEEN YODER DO [Primary Care Provider] - 1 week Documented by User: Giovanni Prieto MD 05/13/24 23:49 HPI - Abdominal Pain General Chief Complaint: Abdominal Pain Stated Complaint: Abdominal Pain Time Seen by Provider: 05/13/24 21:02 Related Data Home Medications ?Medication ?Instructions ?Recorded ?Confirmed aspirin 81 mg tablet,delayed 81 mg PO DAILY 05/13/24 05/13/24 release (Adult Aspirin Regimen) chlorthalidone 25 mg tablet mg 05/13/24 lisinopril 40 mg tablet mg 05/13/24 omeprazole 40 mg capsule,delayed mg 05/13/24 release simvastatin 20 mg tablet mg 05/13/24 Allergies Allergy/AdvReac Type Severity Reaction Status Date / Time No Known Drug Allergies Allergy Verified 05/13/24 21:03 [facility] Social History Little interest or pleasure in doing things: not at all Feeling down, depressed, or hopeless: not at all Exam Constitutional Vital Signs, click to edit/add: Last Vital Signs Temp 97.8 F 05/13/24 21:00 Pulse 76 05/13/24 22:34 Resp 17 05/13/24 22:34 BP 131/57 05/13/24 22:34 Pulse Ox 99 05/13/24 22:34 O2 Del Method Room Air 05/13/24 21:00 Course Vital Signs Vital signs: Vital Signs Temperature 97.8 F 05/13/24 21:00 Pulse Rate 61 05/13/24 21:00 Respiratory Rate 18 05/13/24 21:00 Blood Pressure 143/77 H 05/13/24 21:00 Pulse Oximetry 97 05/13/24 21:00 Oxygen Delivery Method Room Air 05/13/24 21:00 Temperature 97.8 F 05/13/24 21:00 Pulse Rate 76 05/13/24 22:34 Respiratory Rate 17 05/13/24 22:34 Blood Pressure 131/57 05/13/24 22:34 Pulse Oximetry 99 05/13/24 22:34 Oxygen Delivery Method Room Air 05/13/24 21:00 MDM - Abdominal Pain MDM Narrative Medical decision making narrative: 2110: This patient was ordered to have laboratory testing, urine testing, CT of the abdomen and pelvis with IV and oral contrast as this is the only imaging test she has not had. Reyna Khalil ordered for her. Patient is agreeable to trying oral contrast prior to imaging. Vital signs are stable and abdomen is soft and benign. Case turned over to attending physician at this time for disposition. CT returned with findings of small right sided spigelian hernia. Patient re examined and is pain free and abdomen is non tender. Discharged home to follow up with gen. surgery SHARED APC VISIT, PHYSICIAN ATTESTATION: [id number] I performed a substantive part of the MDM during the patient?s E/M visit. I personally evaluated and examined the patient. I personally made or approved the documented management plan and acknowledge its risk of complications. Lab Data Labs: Lab Results 05/13/24 05/13/24 Range/Units 21:20 22:30 WBC 6.2 (4.0-11.0) 10^3/uL RBC 4.65 (4.20-5.40) 10^6/uL Hgb 13.5 (12.0-16.0) g/dL Hct 41.7 (36.0-48.0) % MCV 89.7 (81.0-99.0) fL MCH 29.0 (26.7-34.0) pg MCHC 32.4 (29.9-35.2) g/dL RDW 12.8 (11.0-15.0) % Plt Count 273 (150-450) 10^3/uL MPV 9.5 (9.5-13.5) fL Neut % (Auto) 58.3 (43.0-75.0) % Lymph % (Auto) 31.5 (20.5-60.0) % [place] % (Auto) 7.5 (1.7-12.0) % Eos % (Auto) 1.9 (0.9-7.0) % Baso % (Auto) 0.6 (0.2-2.0) % Neut # (Auto) 3.6 (1.4-6.5) 10^3/uL Lymph # (Auto) 2.0 (1.2-3.8) 10^3/uL [place] # (Auto) 0.5 (0.3-0.8) 10^3/uL Eos # (Auto) 0.1 (0.0-0.7) 10^3/uL Baso # (Auto) 0.0 (0.0-0.1) 10^3/uL Abs Immat Gran (auto) 0.01 (0.00-0.03) 10^3/uL Imm/Tot Granulo (auto) 0.2 (0.0-0.5) % PT 10.1 (9.0-11.6) sec INR 0.95 Sodium 142 (136-145) mmol/L Potassium 3.8 (3.5-5.1) mmol/L Chloride 104 (98-107) mmol/L Carbon Dioxide 28.9 (21.0-32.0) mmol/L Anion Gap 12.9 BUN 34.0 H (7.0-18.0) mg/dL Creatinine 1.34 H (0.55-1.02) mg/dL Est GFR ( Amer) 48 L (>=60 mL/min/1.73m^2) Est GFR (Non-Af Amer) 39 L (>=60 mL/min/1.73m^2) BUN/Creatinine Ratio 25.4 Glucose 120 H (74-106) mg/dL Lactate 1.1 (0.4-2.0) mmol/L Calcium 9.4 (8.5-10.1) mg/dL Total Bilirubin 0.3 (0.2-1.0) mg/dL AST 13 L (15-37) U/L ALT 21 (14-59) U/L Alkaline Phosphatase 65 (46-116) U/L Total Protein 7.3 (6.4-8.2) g/dL Albumin 3.8 (3.4-5.0) g/dL Globulin 3.5 g/dL Albumin/Globulin Ratio 1.1 Lipase 60.0 (16.0-77.0) U/L Urine Color Lt. yellow (YELLOW) Urine Clarity Clear (CLEAR) Urine pH 6.0 (5.0-9.0) Ur Specific [place] 1.015 (1.005-1.025) Urine Protein Negative (NEG/TRACE) mg/dL Urine Glucose (UA) Negative (NEGATIVE) mg/dL Urine Ketones Negative (NEGATIVE) mg/dL Urine Occult Blood Negative (NEGATIVE) Urine Nitrite Negative (NEGATIVE) Urine Bilirubin Negative (NEGATIVE) Urine Urobilinogen 0.2 (0.2-1.0) EU/dL Ur Leukocyte Esterase Negative (NEGATIVE) Imaging Data Abdominal x-ray: Radiologist's impression: ITS Impressions Abdomen/Pelvis CT 05/13/24 21:08
[2024-05-13 21:28] LABS: Basophils Percent Auto 0.6 % (0.2-2.0); Eosinophils Absolute Auto 0.1 10^3/uL (0.0-0.7); Eosinophils Percent Auto 1.9 % (0.9-7.0); Hematocrit 41.7 % (36.0-48.0); Hemoglobin 13.5 g/dL (12.0-16.0); Immature Granulocytes Abs Auto 0.01 10^3/uL (0.00-0.03); Immature Granulocytes Pct Auto 0.2 % (0.0-0.5); Lymphocytes Percent Auto 31.5 % (20.5-60.0); Mean Corpuscular HGB Conc 32.4 g/dL (29.9-35.2); Mean Corpuscular Volume 89.7 fL (81.0-99.0); Mean Platelet Volume 9.5 fL (9.5-13.5); Monocytes Absolute Auto 0.5 10^3/uL (0.3-0.8); Monocytes Percent Auto 7.5 % (1.7-12.0); Neutrophils Absolute Auto 3.6 10^3/uL (1.4-6.5); Neutrophils Percent Auto 58.3 % (43.0-75.0); Platelet Count 273 10^3/uL (150-450); Red Blood Count 4.65 10^6/uL (4.20-5.40); Red Cell Distribution Width 12.8 % (11.0-15.0); White Blood Count 6.2 10^3/uL (4.0-11.0)
[2024-05-13] MEDS: ONDANSETRON PF 4 MG/2 ML VIAL IV (21:30)
[2024-05-13] MEDS: HYDROMORPHONE HCL 0.5 MG/0.5 ML SYRINGE IV (21:30)
[2024-05-13 21:44] LABS: Alanine Aminotransferase 21 U/L (14-59); Albumin Globulin Ratio 1.1; Albumin Level 3.8 g/dL (3.4-5.0); Alkaline Phosphatase 65 U/L (46-116); Anion Gap 12.9; Aspartate Amino Transferase 13 U/L (15-37); BUN Creatinine Ratio 25.4; Bilirubin Total 0.3 mg/dL (0.2-1.0); Calcium 9.4 mg/dL (8.5-10.1); Carbon Dioxide 28.9 mmol/L (21.0-32.0); Chloride 104 mmol/L (98-107); Estimated GFR (African America 48 (>=60 mL/min/1.73m^2); Estimated GFR (Non-African Ame 39 (>=60 mL/min/1.73m^2); Globulin 3.5 g/dL; Glucose 120 mg/dL (74-106); Potassium 3.8 mmol/L (3.5-5.1); Sodium 142 mmol/L (136-145); Total Protein 7.3 g/dL (6.4-8.2)
[2024-05-13 21:46] LABS: INR 0.95; Prothrombin Time 10.1 sec (9.0-11.6)
[2024-05-13 21:47] LABS: Lactate/Lactic Acid 1.1 mmol/L (0.4-2.0)
[2024-05-13 22:34] VITALS: BP 131/57; PULSE 76; O2SAT 99
[2024-05-13 22:40] LABS: Bilirubin Urine NEGATIVE (NEGATIVE); Blood Urine NEGATIVE (NEGATIVE); Clarity Urine CLEAR (CLEAR); Color Urine LT. YELLOW (YELLOW); Glucose Urine UA NEGATIVE (NEGATIVE); Ketones Urine NEGATIVE (NEGATIVE); Leukocyte Esterase Urine NEGATIVE (NEGATIVE); Nitrite Urine NEGATIVE (NEGATIVE); Protein Urine NEGATIVE (NEG/TRACE); Specific Gravity Urine 1.015 (1.005-1.025); Urobilinogen Urine 0.2 EU/dL (0.2-1.0)
[2024-05-13 22:43] LABS: Urine Microscopic Indicated NO
[2024-05-13 23:57] VITALS: PULSE 64; TEMP 36.4; O2SAT 96
[2024-05-14 00:05] VITALS: BP 92/68
[2024-05-14 00:12] VITALS: BP 91/51; PULSE 59
[2024-05-14 00:15] VITALS: BP 101/52; PULSE 71
--- NOTE | 2024-05-14 00:19 | PC.NURSE ---
DR Luna informed of this patient discharge blood pressure, Dr luna replied get a set of orthos blood pressures
[2024-05-14 00:23] VITALS: BP 104/53; PULSE 73
== END 2024-05-14 00:29 | disposition home or self-care (01) ==
PROVIDERS: Physician Assistant; Emergency Provider Internal Medicine; PCP Family Medicine
DX: R10.9 Unspecified abdominal pain (principal); K43.9 Ventral hernia without obstruction or gangrene
CPT/HCPCS: 36415; 74177; 80053; 81003; 83605; 83690; 85025; 85610; 96374; 96375; 99285; J1171; J2405; Q9967

== ENCOUNTER 2024-05-30 13:17 | Outpatient (OUT) | payer MEDICARE, SELFPAY ==
--- OUTSIDE RECORDS SUMMARY | 2024-05-30 13:23 | XMS_ITS | CCD ---
Author Organization [facility] Care Team Providers Care Razor Sharpener Name Role Phone PARESH, DR LONDON Weaver Admitting Unavailable YODER, DR LONDON Weaver Attending Unavailable YODER, DR LONDON Weaver Primary Care Unavailable YODER, DR LONDON Weaver Primary Care Unavailable HAY, DR DEVRIES Admitting Unavailable HAY, DR DEVRIES Attending Unavailable WEST, DR SHADY Felix Consulting Unavailable HAY, DR DEVRIES Consulting Unavailable YODER, DR LONDON Weaver Admitting Unavailable YODER, DR LONDON Weaver Attending Unavailable YODER, DR LONDON Weaver Primary Care Unavailable YODER, DR LONDON Weaver Consulting Unavailable Zieber, DR Merida Consulting Unavailable YODER, DR LONDON Weaver Admitting Unavailable YODER, DR LONDON Weaver Attending Unavailable YODER, DR LONDON Weaver Primary Care Unavailable YODER, DR LONDON Weaver Consulting Unavailable Zieber, DR Merida Consulting Unavailable YODER, DR LONDON Weaver Admitting Unavailable YODER, DR LONDON Weaver Attending Unavailable YODER, DR LONDON Weaver Primary Care Unavailable YODER, DR LONDON Weaver Consulting Unavailable Yoder DO, [place] Weaver Primary Care Provider JOHN ROWLEY Attending Unavailable YODERLONDON Referring Unavailable YODER, LONDON Weaver Primary Care Unavailable YODER, LONDON Weaver Referring Unavailable YODER, LONDON Weaver Primary Care Unavailable YODER, LONDON Weaver Referring Unavailable YODER, LONDON Weaver Primary Care Unavailable Medications Current Medications Medication Drug Class(es) Dates Sig (Normalized) Sig (Original) aspirin 81 mg delayed release oral tablet (1 source) Platelet Aggregation Inhibitor, Nonsteroidal Anti-inflammatory Drug take 1 tablet by mouth in the morning aspirin 81 mg Take 1 tablet (81 mg total) by mouth in the morning. Active chlorthalidone 25 mg oral tablet (1 source) Thiazide-like Diuretic Start: 04-29-2022 take 1 tablet by mouth once daily chlorthalidone (HYGROTON) 25 mg tablet Take 1 tablet (25 mg total) by mouth daily. 04/29/2022 Active lisinopril 40 mg oral tablet (1 source) Angiotensin Converting Enzyme Inhibitor Start: 04-29-2022 take 1 tablet by mouth in the morning lisinopriL (PRINIVIL,ZESTRIL) 40 mg tablet Take 1 tablet (40 mg total) by mouth in the morning. 04/29/2022 Active MULTIVITAMIN ORAL (1 source) MULTIVITAMIN ORA L Take by mouth daily. Active omeprazole 40 mg delayed release oral capsule (1 source) Proton Pump Inhibitor Start: 04-29-2022 take 1 capsule by mouth in the morning omeprazole (PriLOSEC) 40 mg capsule Take 1 capsule (40 mg total) by mouth in the morning. 04/29/2022 Active simvastatin 20 mg oral tablet (1 source) HMG-CoA Reductase Inhibitor Start: 04-29-2022 take 1 tablet by mouth in the morning simvastatin (ZOCOR) 20 mg tablet Take 1 tablet (20 mg total) by mouth in the morning. 04/29/2022 Active zolpidem tartrate 5 mg oral tablet (1 source) gamma-Aminobutyric Acid-ergic Agonist take 1 tablet by mouth once daily as needed for sleep zolpidem (AMBIEN) 5 mg tablet Take 1 tablet (5 mg total) by mouth nightly as needed for sleep. Active Problems Active Problems Problem Classification Problem Date Documented Da te Episodic/Chronic Abdominal hernia (4 sources) Hernia of anterior abdominal wall; Translations: [Ventral hernia without obstruction or gangrene] Onset: 05-21-2024 05-21-2024 Episodic Abdominal pain (4 sources) Unspecified abdominal pain; Translations: [UNSPECIFIED ABDOMINAL PAIN] Onset: 04-22-2022 Episodic Diabetes mellitus with complications (4 sources) Type 2 diabetes mellitus with diabetic chronic kidney disease; Translations: [TYPE 2 DM W/DIABETIC CKD] Onset: 01-31-2022 Chronic Disorders of lipid metabolism (1 source) Mixed hyperlipidemia; Translations: [MIXED HYPERLIPIDEMIA] Onset: 02-03-2022 Chronic Genitourinary symptoms and ill-defined conditions (2 sources) History of renal insufficiency; Translations: [Personal history of other diseases of urinary system] Onset: 05-21-2024 05-21-2024 Episodic Nausea and vomiting (1 source) Nausea; Translations: [NAUSEA] Onset: 04-25-2022 Episodic Other aftercare (1 source) [facility] (current) use of aspirin; Translations: [DIRECTOR OF 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 CURRENT USE OF ASPIRIN] Onset: 04-25-2022 Episodic Other aftercare (1 source) 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; Translations: [OTH LONGTERM CURRENT DRUG THERAPY] Onset: 04-25-2022 Episodic Other circulatory disease (1 source) H/O: hypertension; Translations: [Personal history of other diseases of the circulatory system] 05-21-2024 Episodic Other circulatory disease (1 source) Personal history of other diseases of the circulatory system; Translations: [Personal history of other diseases of the circulatory system] Onset: 05-21-2024 Episodic Other nutritional; endocrine; and metabolic disorders (1 source) Severe obesity; Translations: [Morbid (severe) obesity due to excess calories] 05-21-2024 Chronic Other nutritional; endocrine; and metabolic disorders (1 source) Morbid (severe) obesity due to excess calories; Translations: [Morbid (severe) obesity due to excess calories] Onset: 05-21-2024 Chronic Residual codes; unclassified (1 source) Pain, unspecified; Translations: [Pain, unspecified] Onset: 05-22-2024 Episodic Screening and history of mental health and substance abuse codes (1 source) Personal history of nicotine dependence; Translations: [PERSONAL HISTORY OF NICOTINE DEPEND] Onset: 04-25-2022 Episodic Unclassified (1 source) CHRN KIDNEY DISEASE STG 3 UNSP; Translations: [CHRN KIDNEY DISEASE STG 3 UNSP] Onset: 02-03-2022 Unclassified (1 source) Body mass index (BMI) pediatric, 120% of the 95th percentile for age to less than 140% of the 95th percentile for age; Translations: [Body mass index (BMI) pediatric, 120% of the 95th percentile for age to less than 140% of the 95th percentile for age] Onset: 05-21-2024 Past or Other Problems Problem Classification Problem [...] 04-22-2022 BASO # 0.0 103/ul Normal 0.0-0.1 [facility] Comment on above: Performed By: #### C BC #### [facility] [address] [place] [address] Dr. Ruddy Owsald Basophils/100 WBC (Bld) 0.7 % Normal 0.2-2.0 [facility] Comment on above: Performed By: #### C BC #### [facility] [address] [place] [address] Dr. Ruddy Oswald EO # 0.1 103/ul Normal 0.0-0.7 [facility] Comment on above: Performed By: #### C BC #### [facility] [address] [place] [address] Dr. Ruddy Oswald Eosinophils/100 WBC (Bld) 1.4 % Normal 0.9-7.0 [facility] Comment on above: Performed By: #### C BC #### [facility] [address] [place] [address] Dr. Ruddy Oswald Erythrocyte distribution width (RBC) [Ratio] 14.6 % Normal 11.0-15.0 [facility] Comment on above: Performed By: #### C BC #### [facility] [address] [place] [address] Dr. Ruddy Oswald Hematocrit (Bld) [Volume fraction] 40.2 % Normal 36.0-48.0 [facility] Comment on above: Performed By: #### C BC #### [facility] [address] [place] [address] Dr. Ruddy Oswald Hemoglobin (Bld) [Mass/Vol] 12.6 g/dL Normal 12.0-16.0 [facility] Comment on above: Performed By: #### C BC #### [facility] [address] [place] [address] Dr. Ruddy Oswald IG # 0.01 10e3/ul Normal 0.00-0.03 [facility] Comment on above: Performed By: #### C BC #### [facility] [address] [place] [address] Dr. Ruddy Oswald IG % 0.2 % Normal 0.0-0.5 [facility] Comment on above: Performed By: #### C BC #### [facility] [address] [place] [address] Dr. Ruddy Oswald LYMPH # 1.5 103/ul Normal 1.2-3.8 [facility] Comment on above: Performed By: #### C BC #### [facility] [address] [place] [address] Dr. Ruddy Oswald Lymphocytes/100 WBC (Bld) 32.8 % Normal 20.5-60.0 [facility] Comment on above: Performed By: #### C BC #### [facility] [address] [place] [address] Dr. Ruddy Oswald MANUAL DIFF REQ NO Normal [facility] Comment on above: Performed By: #### C BC #### [facility] [address] [place] [address] Dr. Ruddy Oswald MCH (RBC) [Entitic mass] 26.7 pg Normal 26.7-34.0 [facility] Comment on above: Performed By: #### C BC #### [facility] [address] [place] [address] Dr. Ruddy Oswald MCHC (RBC) [Mass/Vol] 31.3 g/dL Normal 29.9-35.2 [facility] Comment on above: Performed By: #### C BC #### [facility] [address] [place] [address] Dr. Ruddy Oswald MCV (RBC) [Entitic vol] 85.2 fL Normal 81.0-99.0 [facility] Comment on above: Performed By: #### C BC #### [facility] [address] [place] [address] Dr. Ruddy Oswald MONO # 0.4 103/ul Normal 0.3-0.8 [facility] Comment on above: Performed By: #### C BC #### [facility] [address] [address] [address] Ruddy Oswald Monocytes/100 WBC (Bld) 8.6 % Normal 1.7-12.0 [facility] Comment on above: Performed By: #### C BC #### [facility] [address] [address] [address] Ruddy Oswald NEUT # 2.5 103/ul Normal 1.4-6.5 [facility] Comment on above: Performed By: #### C BC #### [facility] [address] [address] [address] Ruddy Oswald Neutrophils/100 WBC (Bld) 56.3 % Normal 43.0-75.0 [facility] Comment on above: Performed By: #### C BC #### [facility] [address] [place] [address] Dr. Ruddy Oswald Platelet mean volume (Bld) [Entitic vol] 9.4 fL Critically low 9.5-13.5 [facility] Comment on above: Performed By: #### C BC #### [facility] [address] [address] [address] Ruddy Oswald PLT 269 103/ul Normal 150-450 [facility] Comment on above: Performed By: #### C BC #### [facility] [address] [place] [address] Dr. Ruddy Oswald RBC 4.72 106/ul Normal 4.20-5.40 [facility] Comment on above: Performed By: #### C BC #### [facility] [address] [place] [address] Dr. Ruddy Oswald WBC 4.4 103/ul Normal 4.0-11.0 [facility] Comment on above: Performed By: #### C BC #### [facility] [address] [place] [address] ABD/PELVIS WO CONon [...] SHADY WARE Date: 2022-04-22 12:27 Normal [facility] PROF 14(COMP METB)on 04-22- 022 Albumin [Mass/Vol] 3.9 g/dL Normal 3.4-5.0 [facility] Comment on above: Performed By: #### C MP #### [facility] [address] [place] [address] Dr. Ruddy Oswald Albumin/Globulin [Mass ratio] 1.2 {ratio} Normal [facility] Comment on above: Performed By: #### C MP #### [facility] [address] [address] [address] Ruddy Oswald ALP [Catalytic activity/Vol] 53 U/L Normal 46-116 [facility] Comment on above: Performed By: #### C MP #### [facility] [address] [address] [address] Ruddy Oswald ALT [Catalytic activity/Vol] 20 U/L Normal 14-59 [facility] Comment on above: Performed By: #### C MP #### [facility] [address] [address] [address] Ruddy Oswald Anion gap [Moles/Vol] 9.1 mmol/L Normal [facility] Comment on above: Performed By: #### C MP #### [facility] [address] [address] [address] Ruddy Oswald AST [Catalytic activity/Vol] 13 U/L Critically low 15-37 [facility] Comment on above: Performed By: #### C MP #### [facility] [address] [address] [address] Ruddy Oswald Bilirubin [Mass/Vol] 0.4 mg/dL Normal 0.2-1.0 [facility] Comment on above: Performed By: #### C MP #### [facility] [address] [place] [address] Dr. Ruddy Oswald Calcium [Mass/Vol] 9.3 mg/dL Normal 8.5-10.1 [facility] Comment on above: Performed By: #### C MP #### [facility] [address] [place] [address] Dr. Ruddy Oswald Chloride [Moles/Vol] 104 mmol/L Normal 98-107 [facility] Comment on above: Performed By: #### C MP #### [facility] [address] [address] [address] Ruddy Oswald CO2 [Moles/Vol] 29.9 mmol/L Normal 21.0-32.0 [facility] Comment on above: Performed By: #### C MP #### [facility] [address] [address] [address] Ruddy Oswald Creatinine [Mass/Vol] 1.21 mg/dL Critically high 0.55-1.02 [facility] Comment on above: Performed By: #### C MP #### [facility] [address] [address] [address] Ruddy Oswald EGFR-AF LAO 54 mL/min/1.73m2 Critically low >=60 [facility] Comment on above: Performed By: #### C MP #### [facility] [address] [address] [address] Ruddy Oswald EGFR-NON AF LAO 45 mL/min/1.73m2 Critically low >=60 [facility] Comment on above: Performed By: #### C MP #### [facility] [address] [address] [address] Ruddy Oswald Globulin (S) [Mass/Vol] 3.3 g/dL Normal [facility] Comment on above: Performed By: #### C MP #### [facility] [address] [address] [address] Ruddy Oswald Glucose [Mass/Vol] 121 mg/dL Critically high 74-106 [facility] Comment on above: Performed By: #### C MP #### [facility] [address] [place] [address] Dr. Ruddy Oswald Potassium [Moles/Vol] 4.0 mmol/L Normal 3.5-5.1 [facility] Comment on above: Performed By: #### C MP #### [facility] [address] [place] [address] Dr. Ruddy Oswald Protein [Mass/Vol] 7.2 g/dL Normal 6.4-8.2 [facility] Comment on above: Performed By: #### C MP #### [facility] [address] [place] [address] Dr. Ruddy Oswald Sodium [Moles/Vol] 139 mmol/L Normal 136-145 [facility] Comment on above: Performed By: #### C MP #### [facility] [address] [address] [address] Ruddy Oswald Urea nitrogen [Mass/Vol] 40.0 mg/dL Critically high 7.0-18.0 [facility] Comment on above: Performed By: #### C MP #### [facility] [address] [place] [address] Dr. Ruddy Oswald Urea nitrogen/Creatinine [Mass ratio] 33.1 mg/mg Normal [facility] Comment on above: Performed By: #### C MP #### [facility] [address] [place] [address] Dr. Ruddy Oswald CBC AUTO DIFFon 01-31-2022 BASO # 0.0 103/ul Normal 0.0-0.1 [facility] Comment on above: Performed By: #### C BC #### [facility] [address] [place] [address] Dr. Ruddy Oswald Basophils/100 WBC (Bld) 0.7 % Normal 0.2-2.0 [facility] Comment on above: Performed By: #### C BC #### [facility] [address] [place] [address] Dr. Ruddy Oswald EO # 0.1 103/ul Normal 0.0-0.7 [facility] Comment on above: Performed By: #### C BC #### [facility] [address] [place] [address] Dr. Ruddy Oswald Eosinophils/100 WBC (Bld) 2.4 % Normal 0.9-7.0 [facility] Comment on above: Performed By: #### C BC #### [facility] [address] [place] [address] Dr. Ruddy Oswald Erythrocyte distribution width (RBC) [Ratio] 13.8 % Normal 11.0-15.0 [facility] Comment on above: Performed By: #### C BC #### [facility] [address] [place] [address] Dr. Ruddy Oswald Hematocrit (Bld) [Volume fraction] 39.0 % Normal 36.0-48.0 [facility] Comment on above: Performed By: #### C BC #### [facility] [address] [place] [address] Dr. Ruddy Oswald Hemoglobin (Bld) [Mass/Vol] 11.8 g/dL Critically low 12.0-16.0 [facility] Comment on above: Performed By: #### C BC #### [facility] [address] [place] [address] Dr. Ruddy Oswald IG # 0.01 10e3/ul Normal 0.00-0.03 [facility] Comment on above: Performed By: #### C BC #### [facility] [address] [place] [address] Dr. Ruddy Oswald IG % 0.2 % Normal 0.0-0.5 [facility] Comment on above: Performed By: #### C BC #### [facility] [address] [place] [address] Dr. Ruddy Oswald LYMPH # 1.5 103/ul Normal 1.2-3.8 [facility] Comment on above: Performed By: #### C BC #### [facility] [address] [place] [address] Dr. Ruddy Oswald Lymphocytes/100 WBC (Bld) 35.6 % Normal 20.5-60.0 [facility] Comment on above: Performed By: #### C BC #### [facility] [address] [place] [address] Dr. Ruddy Oswald MANUAL DIFF REQ NO Normal [facility] Comment on above: Performed By: #### C BC #### [facility] [address] [place] [address] Dr. Ruddy Oswald MCH (RBC) [Entitic mass] 26.1 pg Critically low 26.7-34.0 [facility] Comment on above: Performed By: #### C BC #### [facility] [address] [place] [address] Dr. Ruddy Oswald MCHC (RBC) [Mass/Vol] 30.3 g/dL Normal 29.9-35.2 [facility] Comment on above: Performed By: #### C BC #### [facility] [address] [place] [address] Dr. Ruddy Oswald MCV (RBC) [Entitic vol] 86.3 fL Normal 81.0-99.0 [facility] Comment on above: Performed By: #### C BC #### [facility] [address] [place] [address] Dr. Ruddy Oswald MONO # 0.3 103/ul Normal 0.3-0.8 [facility] Comment on above: Performed By: #### C BC #### [facility] [address] [place] [address] Dr. Ruddy Oswald Monocytes/100 WBC (Bld) 6.7 % Normal 1.7-12.0 [facility] Comment on above: Performed By: #### C BC #### [facility] [address] [place] [address] Dr. Ruddy Oswald NEUT # 2.3 103/ul Normal 1.4-6.5 [facility] Comment on above: Performed By: #### C BC #### [facility] [address] [place] [address] Dr. Ruddy Oswald Neutrophils/100 WBC (Bld) 54.4 % Normal 43.0-75.0 [facility] Comment on above: Performed By: #### C BC #### [facility] [address] [place] [address] Dr. Ruddy Oswald Platelet mean volume (Bld) [Entitic vol] 9.7 fL Normal 9.5-13.5 [facility] Comment on above: Performed By: #### C BC #### [facility] [address] [place] [address] Dr. Ruddy Oswald PLT 318 103/ul Normal 150-450 [facility] Comment on above: Performed By: #### C BC #### [facility] [address] [place] [address] Dr. Ruddy Oswald RBC 4.52 106/ul Normal 4.20-5.40 [facility] Comment on above: Performed By: #### C BC #### [facility] [address] [place] [address] Dr. Ruddy Oswald WBC 4.2 103/ul Normal 4.0-11.0 [facility] Comment on above: Performed By: #### C BC #### [facility] [address] [place] [address] Dr. Ruddy Oswald LIPID PROFILEon 01-31-2022 CHOL-HDL RATIO NORM SEE BELOW Normal [facility] Comment on above: Result Comment: 3.3 - 4.4 LOW RISK 4.4 - 7.1 AVERAGE RISK 7.1 - 11.0 MODERATE RISK >11.0 HIGH RISK Performed By: #### L IPID, CMP #### [facility] [address] [place] [address] Dr. Ruddy Oswald Cholesterol [Mass/Vol] 192 mg/dL Normal <=200 [facility] Comment on above: Performed By: #### L IPID, CMP #### [facility] [address] [address] [address] Ruddy Oswald Cholesterol in HDL [Mass/Vol] 60 mg/dL Normal 40-60 [facility] Comment on above: Performed By: #### L IPID, CMP #### [facility] [address] [address] [address] Ruddy Oswald Cholesterol in LDL [Mass/Vol] 109.0 mg/dL Normal [facility] Comment on above: Performed By: #### L IPID, CMP #### [facility] [address] [address] [address] Ruddy Oswald Cholesterol.total/C holesterol in HDL [Mass ratio] 3.2 {ratio} Normal [facility] Comment on above: Performed By: #### L IPID, CMP #### [facility] [address] [address] [address] Ruddy Oswald HDL NORMAL > or = 60 mg/dl - LO W CARDIOVASCULAR RISK <40 mg/dl - HIGH CARDIOVASCULAR RISK Normal [facility] Comment on above: Performed By: #### L IPID, CMP #### [facility] [address] [address] [address] Ruddy Oswald LDL CALC NORMAL SEE BELOW Normal [facility] Comment on above: Result Comment: <100 mg/dl OPTIMAL 100 - 129 mg/dl NEAR OR ABOVE OPTIMAL 130 - 159 mg/dl BORDERLINE HIGH 160 - 189 mg/dl HIGH >190 mg/dl VERY HIGH Performed By: #### L IPID, CMP #### [facility] [address] [address] [address] Ruddy Oswald Triglyceride [Mass/Vol] 115 mg/dL Normal <=150 [facility] Comment on above: Performed By: #### L IPID, CMP #### [facility] [address] [address] [address] Ruddy Oswald VLDL CALC 23.0 mg/dL Normal [facility] Comment on above: Performed By: #### L IPID, CMP #### [facility] [address] [address] [address] Ruddy Oswald MICROALBUMIN, RAND URon 07- mALB <1.3 Normal <=30.0 [facility] Comment on above: Performed By: #### M ALBR #### [facility] [address] [address] [address] Ruddy Oswald PROF 14(COMP METB)on 022 Albumin [Mass/Vol] 3.6 g/dL Normal 3.4-5.0 [facility] Comment on above: Performed By: #### L IPID, CMP #### [facility] [address] [place] [address] Dr. Ruddy Oswald Albumin/Globulin [Mass ratio] 1.1 {ratio} Normal [facility] Comment on above: Performed By: #### L IPID, CMP #### [facility] [address] [place] [address] Dr. Ruddy Oswald ALP [Catalytic activity/Vol] 57 U/L Normal 46-116 [facility] Comment on above: Performed By: #### L IPID, CMP #### [facility] [address] [place] [address] Dr. Ruddy Oswald ALT [Catalytic activity/Vol] 23 U/L Normal 14-59 [facility] Comment on above: Performed By: #### L IPID, CMP #### [facility] [address] [address] [address] Ruddy Oswald Anion gap [Moles/Vol] 11.0 mmol/L Normal [facility] Comment on above: Performed By: #### L IPID, CMP #### [facility] [address] [place] [address] Dr. Ruddy Oswald AST [Catalytic activity/Vol] 15 U/L Normal 15-37 [facility] Comment on above: Performed By: #### L IPID, CMP #### [facility] [address] [place] [address] Dr. Ruddy Oswald Bilirubin [Mass/Vol] 0.3 mg/dL Normal 0.2-1.0 [facility] Comment on above: Performed By: #### L IPID, CMP #### [facility] [address] [place] [address] Dr. Ruddy Oswald Calcium [Mass/Vol] 9.1 mg/dL Normal 8.5-10.1 [facility] Comment on above: Performed By: #### L IPID, CMP #### [facility] [address] [place] [address] Dr. Ruddy Oswald Chloride [Moles/Vol] 106 mmol/L Normal 98-107 [facility] Comment on above: Performed By: #### L IPID, CMP #### [facility] [address] [place] [address] Dr. Ruddy Oswald CO2 [Moles/Vol] 30.0 mmol/L Normal 21.0-32.0 [facility] Comment on above: Performed By: #### L IPID, CMP #### [facility] [address] [place] [address] Dr. Ruddy Oswald Creatinine [Mass/Vol] 0.98 mg/dL Normal 0.55-1.02 [facility] Comment on above: Performed By: #### L IPID, CMP #### [facility] [address] [place] [address] Dr. Ruddy Oswald EGFR-AF LAO >60 Normal >=60 [facility] Comment on above: Performed By: #### L IPID, CMP #### [facility] [address] [place] [address] Dr. Ruddy Oswald EGFR-NON AF LAO 57 mL/min/1.73m2 Critically low >=60 [facility] Comment on above: Performed By: #### L IPID, CMP #### [facility] [address] [place] [address] Dr. Ruddy Oswald Globulin (S) [Mass/Vol] 3.4 g/dL Normal [facility] Comment on above: Performed By: #### L IPID, CMP #### [facility] [address] [place] [address] Dr. Ruddy Oswald Glucose [Mass/Vol] 121 mg/dL Critically high 74-106 [facility] Comment on above: Performed By: #### L IPID, CMP #### [facility] [address] [address] [address] Ruddy Oswald Potassium [Moles/Vol] 5.0 mmol/L Normal 3.5-5.1 [facility] Comment on above: Performed By: #### L IPID, CMP #### [facility] [address] [address] [address] Ruddy Oswald Protein [Mass/Vol] 7.0 g/dL Normal 6.4-8.2 [facility] Comment on above: Performed By: #### L IPID, CMP #### [facility] [address] [place] [address] Dr. Ruddy Oswald Sodium [Moles/Vol] 142 mmol/L Normal 136-145 [facility] Comment on above: Performed By: #### L IPID, CMP #### [facility] [address] [place] [address] Dr. Ruddy Oswald Urea nitrogen [Mass/Vol] 30.0 mg/dL Critically high 7.0-18.0 [facility] Comment on above: Performed By: #### L IPID, CMP #### [facility] [address] [place] [address] Dr. Ruddy Oswald Urea nitrogen/Creatinine [Mass ratio] 30.6 mg/mg Normal [facility] Comment on above: Performed By: #### L IPID, CMP #### [facility] [address] [place] [address] Dr. Ruddy Oswald US BREAST LEFT LIMITEDon US BREAST LEFT LIMITED Patient: JENA MARTÍNEZ Exam Date: 11/08/2021 : 1955 Gender:F Ordering : DR LONDON YODER D.O. Admission #: [id number] Family : Order #: [id number] CLICK HERE TO VIEW EXAM RADIOLOGY REPORT [...] M.D. on 11/08/2021 at 09:55 Normal [facility] MAMM SCREEN 3D NITHYA CADon 09-28-2021 MAMM SCREEN 3D NITHYA CAD Patient: JENA MARTÍNEZ Exam Date: 09/28/2021 : 1955 Gender:F Ordering : DR LONDON YODER D.O. Admission #: [id number] Family : Order #: [id number] CLICK HERE TO VIEW EXAM RADIOLOGY REPORT [...] leukemia cancer at age 78. LOCATION: [facility] BREAST COMPOSITION: Scattered areas fibroglandular density. FINDINGS: [...] Fuad Diaz M.D. on 09/28/2021 at 11:12 [facility] XR DEXA BONE DENSITYon 09-28 XR DEXA [...] by: FUAD DIAZ Date: 2021-09-28 14:43 Normal [facility] Vital Signs Date Time Vital Sign Value Performing Clinician Germaine ramirez 05-21-2024 13:33-0400 Body height 167.6 cm John Rowley DO [facility] 05-21-2024 13:33-0400 Body mass index (BMI) [Ratio] 39.16 kg/m2 John Rowley DO [facility] 05-21-2024 13:33-0400 Body weight 110.04 kg John Rowley DO Work Phone[facility] 05-21-2024 13:33-0400 Diastolic blood pressure 72 mm[Hg] John Rowley DO Work Phone: [facility] 05-21-2024 13:33-0400 Heart rate 81 /min John Rowley DO Work Phone: [facility] 05-21-2024 13:33-0400 Systolic blood pressure 127 mm[Hg] John Nuvia DO Work Phone: [facility] Encounters Encounter Date Encounter Type Care Provider Facility Start: 05-22-2024 ambulatory LONDON YODER [facility] Start: 05-21-2024 End: 05-21-2024 Office outpatient new 45 minutes John Chiquis Rowley DO Work Phone: [facility] Comment on above: Ventral hernia witho ut obstruction or gangrene (Primary Dx); Severe obesity with serious comorbidity and body mass index (BMI) 120% of 95th percentile to less than 140% of 95th percentile for age in pediatric patient, unspecified obesity type ([facility]); History of hypertension; History of renal insufficiency Start: 05-21-2024 End: 05-21-2024 ambulatory [place] Chiquis ROWLEY [facility] Start: 05-11-[address] LONDON YODER Fac ility:[facility] Start: 04-22-2022 End: 04-22-[address] LONDON YODER Facility:[facility] Start: 01-31-2022 End: 02-01-[address] LONDON YODER Facility:[facility] Start: 11-08-2021 End: 11-09-[address] LONDON YODER Facility:[facility] Start: 09-28-2021 End: 09-29-[address] LONDON YODER Facility:[facility] Procedures Date Procedure Procedure Detail Performing Clinician Start: 09-11-2022 Colonoscopy Jonh griffithsrani DO Work Phone: Plan of Treatment Date Care Activity Detail Author Start: 09-11-2032 Screening for malign ant neoplasm of colon Colonoscopy [facility] Start: 05-21-2025 Adult BMI Screening Adult BMI Screen ing [facility] Start: 05-21-2025 Tobacco Screening Tobacco Screening [facility] Start: 03-30-2024 Influenza vaccination Influenza Vacc ine [facility] Start: 2020 Fall Risk Screening Fall Risk Screen ing [facility] Start: 04-04-2018 Administration of varicella zoster vaccine Zoster (Shingles) Vaccine (2 of 3) [facility] Start: 1974 DTaP,Tdap and Td Vac cines (1 - Tdap) DTaP,Tdap and Td Vaccines (1 - Tdap) [facility] Start: 1973 Adult BMI Follow Up Plan Adult BMI Follow Up Plan [facility] Start: 1967 Depression Screening Depression Scre ening [facility] Start: 1955 Medicare Annual Well ness Visit Medicare Annual Wellness Visit [facility] End: 05-21-2025 CBC panel - Blood by Automated count CBC without diff Lab Routine Ventral hernia without obstruction or gangrene 1 Occurrences starting 05/21/2024 until 05/21/2025 [employer] Work Phone: Comment on above: 1 Occurrences starti ng 05/21/2024 until 05/21/2025 End: 05-21-2025 Comprehensive metabolic 2000 panel - Serum or Plasma Comprehensive metabolic panel Lab Routine Ventral hernia without obstruction or gangrene 1 Occurrences starting 05/21/2024 until 05/21/2025 [facility] Comment on above: 1 Occurrences starti ng 05/21/2024 until 05/21/2025 End: 05-21-2025 Unlisted [facility] Procedure [facility] Procedure Procedures Routine Ventral hernia without obstruction or gangrene 1 Occurrences starting 05/21/2024 until 05/21/2025 [facility] Comment on above: 1 Occurrences starti ng 05/21/2024 until 05/21/2025 Immunizations Immunization Date Immunization Notes Care Provider Drea houston 05-07-2023 influenza virus vaccine, unspecified formulation John Rowley DO Work Phone: [facility] 02-07-2018 zoster vaccine, unspecified formulation John Rowley DO Work Phone: [employer] Payers Date Payer Category Payer Medicare HMO [employer] [id number] 1959 Unknown [id number] 1955 Unknown [id number] 3 1955 Unknown [id number] 3 1955 Unknown [id number] 3 1955 Unknown [id number] 3 1955 Unknown [id number] 3 1955 Unknown [id number] 86 1955 Unknown [id number] 86 1955 Unknown [id number] 86 1955 Unknown [id number] 86 Social History Date Type Detail Facility Start: 05-21-2024 Tobacco smoking stat us NCIS Ex-smoker [facility] Start: 07-30-2000 End: 07-30-2007 History of tobacco use Current smoker [facility] Start: 07-30-2000 End: 07-30-2007 History of tobacco use Cigarette Smoker [facility] Start: 01-08-2019 End: 05-21-2024 Cigarettes smoked current (pack per day) - Reported 1 [facility] Start: 05-21-2024 Tobacco use and exposure Smokeless tobacco non-user [facility] Start: 05-21-2024 Alcoholic beverage intake Ex-drinker (finding) [facility] Start: 01-08-2019 End: 05-21-2024 Tobacco use panel [facility] Childcare Unknown [facility] Start: 1955 Sex assigned at Not on file P [facility] Start: 03-04-2015 Sex Female (finding) [facility] History of Present illness Narrative 05-21-2024 John Rowley, DO - 05/21/2024 1:45 PM EDT Note Date & Type Note Facility 05-21-2024 History of Presen t illness Narrative Images from the original note were not included. [facility] [address] [id number] CONSULT NOTE CHIEF COMPLAINT Chief Complaint Patient presents with Hernia Ventral hernia, [facility] 05/13/24 Jena Martínez is a 68 y.o. female who presents with complaints of a right-sided abdominal wall hernia which she was found to have on a CT scan performed at the [facility] on 05/13/2024. Patient went to the emergency room due to right upper quadrant pain which was intermittent associated with nausea. A proximally 2-3 4 weeks before that she had a similar episode. Denies any emesis or hematemesis or melena hematochezia. She quit smoking 15 years ago and prior to that smoked for 8 years. She has had a prior ZARIA with BSO 15 years ago. 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 She takes a baby aspirin daily for prevention. She has slight renal failure with a creatinine of 1.34. CT scan from the [facility] as well as ED report and HIDA scan were reviewed by me. The HIDA scan was normal. MEDICATION Current Outpatient Medications: aspirin 81 mg, Take 1 tablet (81 mg total) by mouth in the morning., Disp: , Rfl: chlorthalidone (HYGROTON) 25 mg tablet, Take 1 tablet (25 mg total) by mouth daily., Disp: , Rfl: lisinopriL (PRINIVIL,ZESTRIL) 40 mg tablet, Take 1 tablet (40 mg total) by mouth in the morning., Disp: , Rfl: MULTIVITAMIN ORAL, Take by mouth daily., Disp: , Rfl: omeprazole (PriLOSEC) 40 mg capsule, Take 1 capsule (40 mg total) by mouth in the morning., Disp: , Rfl: simvastatin (ZOCOR) 20 mg tablet, Take 1 tablet (20 mg total) by mouth in the morning., Disp: , Rfl: zolpidem (AMBIEN) 5 mg tablet, Take 1 tablet (5 mg total) by mouth nightly as needed for sleep., Disp: , Rfl: ALLERGY No Known Allergies MEDICAL HISTORY Past Medical History: Diagnosis Date Cataract at recent eye appointment Chronic kidney disease GERD (gastroesophageal reflux disease) Hyperlipidemia Hypertension Shingles Varicella 1960 Visual impairment SURGICAL HISTORY Past Surgical History: Procedure Laterality Date COLONOSCOPY 2013 COLONOSCOPY N/A 09/11/2022 Performed by John Rowley DO at [facility] HYSTERECTOMY 2008 TUBAL LIGATION 1986 SOCIAL HISTORY Social History Socioeconomic History Marital status: Spouse name: Not on file Number of children: Not on file Years of education: Not on file Highest education level: Not on file Occupational History Not on file Tobacco Use Smoking status: Former Current packs/day: 0.00 Average packs/day: 1 pack/day for 7.0 years (7.0 ttl pk-yrs) Types: Cigarettes Start date: 07/30/2000 Quit date: 2008 Years since quittin.8 Smokeless tobacco: Never Vaping Use Vaping status: Never Used Substance and Sexual Activity Alcohol use: Not Currently Drug use: Never Sexual activity: Not Currently Partners: Male control/protection: Surgical Other Topics Concern Not on file Social History Narrative Not on file Social Drivers of Health Financial Resource Strain: Not on file Food Insecurity: Unknown (05/21/2024) Hunger Screening Food Insecurity - Worry: Never True Food Insecurity - Inability: Not on file Transportation Needs: Not on file Physical Activity: Not on file Stress: Not on file Social Connections: Not on file Interpersonal Safety: Not on file Housing Instability: Not on file FAMILY HISTORY Family History Problem Relation Age of Onset Diabetes Mother Heart disease Mother Hypertension Mother Kidney disease Mother Hypertension Father Liver cancer Father REVIEW OF SYSTEMS: Constitutional: Denies fevers, denies recent illnesses. Eyes: Denies any vision changes. ENT: Denies any throat pain. Neck: Denies any neck pain. Cardiovascular denies chest pain. Denies palpitations. Respiratory: Denies shortness of breath, denies cough, denies history of asthma or any other pulmonary illnesses. Gastrointestinal: See chief, Genitourinary negative for dysuria hematuria urinary frequency or urgency. Musculoskeletal: Negative for extremity pains or joint discomfort. Neurologic: No change in sensation or paresthesias or history of seizure disorder skin: No rashes. Hematologic: No anemia. No purpura. No petechiae and no prolonged or excessive bleeding Allergic and immunologic: No pruritus. No swelling. Endocrine: No unexplained weight loss. No polydipsia. No polyuria. No polyphagia. PHYSICAL EXAM Constitutional: She is oriented to person, place, and time. Vital signs are normal. She appears well-developed and well-nourished. HEENT: Head: Normocephalic and atraumatic. Eyes: Conjunctivae, EOM and lids are normal. Neck: Trachea normal. Neck supple. No thyroid mass present. Cardiovascular: Normal rate and regular rhythm. Pulmonary/Chest: Effort normal and breath sounds normal. Abdominal: Soft. Morbidly obese with no palpable masses noted. She has slight tenderness in the right mid abdomen but can not palpate a hernia. The defect is only 1.5 cm according to the CT scan. Musculoskeletal: Normal range of motion. Lymphadenopathy: She has no cervical adenopathy. Neurological: She is alert and oriented to person, place, and time. Skin: Skin is warm, dry and intact. Psychiatric: She has a normal mood and affect. Her speech is normal and behavior is normal. Cognition and memory are normal. IMPRESSION 1. Right ventral abdominal wall hernia (spigelian hernia 1.[address] scan) 2. Morbid obesity with BMI of 39 3. History of hypertension 4. Past history of tobacco use ASSESSMENT & PLAN 1. Weight loss encouraged 2. Robotic ventral hernia repair with mesh. Risks benefits alternatives to surgery could include infection, bleeding, intestinal injury, recurrence of the hernia which is 25% or greater due to obesity, blood clots to legs or lungs, pneumonia, heart attack, stroke, and/or . She voiced understanding of all the above and wished to proceed. Her other option is to lose weight and return afterwards. She would need to stop her aspirin 1 week in advance of surgery. Recovery is 4-6 weeks no lifting pushing or pulling. Evaluation included: Preparing to see the patient (e.g., review of tests) Obtaining and/or reviewing separately obtained history Performing a medically appropriate examination and/or evaluation Counseling and educating the patient/family/caregiver Referring and communicating with other health reservoir caretaker Ventral hernia without obstruction or gangrene [K43.9] John Rowley DO This note was created with the assistance of a speech recognition program. While intending to generate a timely document that accurately reflects the content of the visit, no guarantee can be provided that every grammatical or spelling mistake has been or will be identified or corrected. Thank you for your understanding. documented in this encounter .[employer] Evaluation note Note Date & Type Note Facility Evaluation note Diagnosis Ventral hernia without obstruction or gangrene- Primary Unspecified ventral hernia without mention of obstruction or gangrene Severe obesity with serious comorbidity and body mass index (BMI) 120% of 95th percentile to less than 140% of 95th percentile for age in pediatric patient, unspecified obesity type (CMS-HCC) History of hypertension Personal history of other diseases of circulatory system History of renal insufficiency documented in this encounter [facility] Instructions Note Date & Type Note Facility Instructions Not on filedocumented in this en counter [facility] Summary Purpose Family History No Family History Records FoundNo Family History Records Found Advance Directives No Advanced Directives Records FoundNo Advanced Directives Records Found Additional Source Comments INFORMATION SOURCE (unrecogn ized section and content) DATE CREATED AUTHOR 05/09/2022 [facility] DATE CREATED AUTHOR AUTHOR'S ORGANIZ ATION 05/23/2024 [facility] Reason for Visit (unrecogniz ed section and content) Reason Comments Hernia Ventral hernia, [facility] 05/13/24 Care Teams (unrecognized sec tion and content) Razor 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 [facility], [facility]. provides no warranty or guarantee of the accuracy or completeness of information in this document.
--- NOTE | 2024-05-30 13:27 | ECG_ITS ---
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
[2024-05-30 14:32] LABS: Anion Gap 12.9; BUN Creatinine Ratio 25.6; Calcium 9.5 mg/dL (8.5-10.1); Carbon Dioxide 29.4 mmol/L (21.0-32.0); Chloride 105 mmol/L (98-107); Estimated GFR (African America 50 (>=60 mL/min/1.73m^2); Estimated GFR (Non-African Ame 41 (>=60 mL/min/1.73m^2); Glucose 122 mg/dL (74-106); Potassium 4.3 mmol/L (3.5-5.1); Sodium 143 mmol/L (136-145)
== END 2024-05-30 13:18 | disposition home or self-care (01) ==
LOC: PST 13:18
PROVIDERS: PCP Family Medicine; Visit Provider Surgery
DX: Z01.810 Encounter for preprocedural cardiovascular examination (principal); Z01.812 Encounter for preprocedural laboratory examination; K43.9 Ventral hernia without obstruction or gangrene; N18.9 Chronic kidney disease, unspecified
CPT/HCPCS: 36415; 80048; 93005

== ENCOUNTER 2024-06-04 07:53 | Day surgery (SDC) | payer MEDICARE, SELFPAY ==
[2024-05-30 14:15] VITALS: BP 122/81; PULSE 73; TEMP 36.4; O2SAT 96; BMI 40.5
[2024-06-04] VITALS (19 sets, daily range): BP systolic 100–137; BP diastolic 56–76; PULSE 45–82; TEMP 36.2–36.4; O2SAT 87–99; BMI 38.9
--- OUTSIDE RECORDS SUMMARY | 2024-06-04 08:02 | XMS_ITS | CCD ---
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 Name Role Phone PARESH, DR LONDON Weaver [...] YODER, DR LONDON Weaver Consulting Unavailable Yoder [place] SALDIVAR Primary Care Provider [phone] JOHN ROWLEY Attending Unavailable YODER, LONDON Weaver Referring Unavailable YODER, LONDON Weaver Primary Care Unavailable YODER, LONDON Weaver Referring Unavailable YODER, LONDON Weaver Primary Care Unavailable YODER, LONDON Weaver Referring Unavailable YODER, LONDON Weaver Primary Care Unavailable Medications Current Medications Medication Drug Class(es) Dates Sig (Normalized) Sig (Original) aspirin 81 mg delayed release oral tablet (2 sources) Platelet Aggregation Inhibitor, Nonsteroidal Anti-inflammatory Drug take 1 tablet by mouth in the morning aspirin 81 mg Take 1 tablet (81 mg total) by mouth in the morning. Active chlorthalidone 25 mg oral tablet (2 sources) Thiazide-like Diuretic Start: 04-29-2022 take 1 tablet by mouth once daily chlorthalidone (HYGROTON) 25 mg tablet Take 1 tablet (25 mg total) by mouth daily. 04/29/2022 Active lisinopril 40 mg oral tablet (2 sources) Angiotensin Converting Enzyme Inhibitor Start: 04-29-2022 take 1 tablet by mouth in the morning lisinopriL (PRINIVIL,ZESTRIL) 40 mg tablet Take 1 tablet (40 mg total) by mouth in the morning. 04/29/2022 Active MULTIVITAMIN ORAL (2 sources) MULTIVITAMIN ORA L Take by mouth daily. Active omeprazole 40 mg delayed release oral capsule (2 sources) Proton Pump Inhibitor Start: 04-29-2022 take 1 capsule by mouth in the morning omeprazole (PriLOSEC) 40 mg capsule Take 1 capsule (40 mg total) by mouth in the morning. 04/29/2022 Active simvastatin 20 mg oral tablet (2 sources) HMG-CoA Reductase Inhibitor Start: 04-29-2022 take 1 tablet by mouth in the morning simvastatin (ZOCOR) 20 mg tablet Take 1 tablet (20 mg total) by mouth in the morning. 04/29/2022 Active zolpidem tartrate 5 mg oral tablet (2 sources) gamma-Aminobutyric Acid-ergic Agonist take 1 tablet by mouth once daily as needed for sleep zolpidem (AMBIEN) 5 mg tablet Take 1 tablet (5 mg total) by mouth nightly as needed for sleep. 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; Translations: [CARE HOME CURRENT USE OF ASPIRIN] Onset: 04-25-2022 Episodic Other aftercare (1 source) Other emt intermediate (current) drug therapy; Translations: [OTH CARE HOME CURRENT DRUG THERAPY] Onset: 04-25-2022 Episodic Other [...] Name Value Interpretation Reference Range Facil ity Comprehensive metabolic pane eleni 05-30-2024 External Anion Gap 12.9 [facility] External Blood Urea Nitrogen Bun 33 [facility] External Calcium Ca 9.5 [facility] External Chloride 105 [facility] External Co2 / Carbon Dioxide 29.4 [facility] External Creatinine 1.29 [facility] External Gfr Amer 50 [facility] External Gfr Non Amer 41 [facility] External Glucose Fasting Or Random (Fbs) 122 [facility] External Potassium K 4.3 [facility] External Sodium Na 143 [facility] CBC AUTO DIFFon 04-22-2022 BASO # 0.0 103/ul Normal 0.0-0.1 [facility] Comment on above: Performed By: #### C BC #### [facility] [address] [place] [address] Dr. Ruddy Oswald Basophils/100 WBC (Bld) 0.7 % Normal 0.2-2.0 [facility] Comment on above: Performed By: #### C BC #### [facility] [address] [place] [address] Dr. Ruddy Oswald EO # 0.1 103/ul Normal 0.0-0.7 [facility] Comment on above: Performed By: #### C BC #### [facility] [address] [place] [address] Dr. Ruddy Oswald Eosinophils/100 WBC (Bld) 1.4 % Normal 0.9-7.0 [facility] Comment on above: Performed By: #### C BC #### [facility] [address] [place] [address] Dr. Ruddy Oswald Erythrocyte distribution width (RBC) [Ratio] 14.6 % Normal 11.0-15.0 [facility] Comment on above: Performed By: #### C BC #### [facility] [address] [place] [address] Dr. Ruddy Oswald Hematocrit (Bld) [Volume fraction] 40.2 % Normal 36.0-48.0 [facility] Comment on above: Performed By: #### C BC #### [facility] [address] [place] [address] Dr. Ruddy Oswald Hemoglobin (Bld) [Mass/Vol] 12.6 g/dL Normal 12.0-16.0 [facility] Comment on above: Performed By: #### C BC #### [facility] [address] [place] [address] Dr. Ruddy Oswald IG # 0.01 10e3/ul Normal 0.00-0.03 [facility] Comment on above: Performed By: #### C BC #### [facility] [address] [place] [address] Dr. Ruddy Oswald IG % 0.2 % Normal 0.0-0.5 [facility] Comment on above: Performed By: #### C BC #### [facility] [address] [place] [address] Dr. Ruddy Oswald LYMPH # 1.5 103/ul Normal 1.2-3.8 [facility] Comment on above: Performed By: #### C BC #### [facility] [address] [place] [address] Dr. Ruddy Oswald Lymphocytes/100 WBC (Bld) 32.8 % Normal 20.5-60.0 [facility] Comment on above: Performed By: #### C BC #### [facility] [address] [place] [address] Dr. Ruddy Oswald MANUAL DIFF REQ NO Normal [facility] Comment on above: Performed By: #### C BC #### [facility] [address] [place] [address] Dr. Ruddy Oswald MCH (RBC) [Entitic mass] 26.7 pg Normal 26.7-34.0 [facility] Comment on above: Performed By: #### C BC #### [facility] [address] [place] [address] Dr. Ruddy Oswald MCHC (RBC) [Mass/Vol] 31.3 g/dL Normal 29.9-35.2 [facility] Comment on above: Performed By: #### C BC #### [facility] [address] [place] [address] Dr. Ruddy Oswald MCV (RBC) [Entitic vol] 85.2 fL Normal 81.0-99.0 [facility] Comment on above: Performed By: #### C BC #### [facility] [address] [place] [address] Dr. Ruddy Oswald MONO # 0.4 103/ul Normal 0.3-0.8 [facility] Comment on above: Performed By: #### C BC #### [facility] [address] [place] [address] Dr. Ruddy Oswald Monocytes/100 WBC (Bld) 8.6 % Normal 1.7-12.0 [facility] Comment on above: Performed By: #### C BC #### [facility] [address] [place] [address] Dr. Ruddy Oswald NEUT # 2.5 103/ul Normal 1.4-6.5 [facility] Comment on above: Performed By: #### C BC #### [facility] [address] [place] [address] Dr. Ruddy Oswald Neutrophils/100 WBC (Bld) 56.3 % Normal 43.0-75.0 [facility] Comment on above: Performed By: #### C BC #### [facility] [address] [place] [address] Dr. Ruddy Oswald Platelet mean volume (Bld) [Entitic vol] 9.4 fL Critically low 9.5-13.5 [facility] Comment on above: Performed By: #### C BC #### [facility] [address] [place] [address] Dr. Ruddy Oswald PLT 269 103/ul Normal 150-450 [facility] Comment on above: Performed By: #### C BC #### [facility] [address] [place] [address] Dr. Ruddy Oswald RBC 4.72 106/ul Normal 4.20-5.40 [facility] Comment on above: Performed By: #### C BC #### [facility] [address] [address] [address] Ruddy Oswald WBC 4.4 103/ul Normal 4.0-11.0 [facility] Comment on above: Performed By: #### C BC #### [facility] [id number] Ruddy Oswald CT ABD/PELVIS WO CONon [...] SHADY WARE Date: 2022-04-22 12:27 Normal [facility] PROF 14(COMP METB)on 022 Albumin [Mass/Vol] 3.9 g/dL Normal 3.4-5.0 [facility] Comment on above: Performed By: #### C MP #### [facility] [address] [address] [address] Ruddy Oswald Albumin/Globulin [Mass ratio] 1.2 {ratio} Normal [facility] Comment on above: Performed By: #### C MP #### [facility] [address] [address] [address] Ruddy Oswald ALP [Catalytic activity/Vol] 53 U/L Normal 46-116 [facility] Comment on above: Performed By: #### C MP #### [facility] [address] [address] [address] Ruddy Oswald ALT [Catalytic activity/Vol] 20 U/L Normal 14-59 [facility] Comment on above: Performed By: #### C MP #### [facility] [address] [address] [address] Ruddy Oswald Anion gap [Moles/Vol] 9.1 mmol/L Normal [facility] Comment on above: Performed By: #### C MP #### [facility] [address] [place] [address] Dr. Ruddy Oswald AST [Catalytic activity/Vol] 13 U/L Critically low 15-37 [facility] Comment on above: Performed By: #### C MP #### [facility] [address] [address] [address] Ruddy Oswald Bilirubin [Mass/Vol] 0.4 mg/dL Normal 0.2-1.0 [facility] Comment on above: Performed By: #### C MP #### [facility] [address] [address] [address] Ruddy Oswald Calcium [Mass/Vol] 9.3 mg/dL Normal 8.5-10.1 [facility] Comment on above: Performed By: #### C MP #### [facility] [address] [address] [address] Ruddy Oswald Chloride [Moles/Vol] 104 mmol/L Normal 98-107 [facility] Comment on above: Performed By: #### C MP #### [facility] [address] [address] [address] Ruddy Oswald CO2 [Moles/Vol] 29.9 mmol/L Normal 21.0-32.0 [facility] Comment on above: Performed By: #### C MP #### [facility] [address] [address] [address] Ruddy Oswald Creatinine [Mass/Vol] 1.21 mg/dL Critically high 0.55-1.02 [facility] Comment on above: Performed By: #### C MP #### [facility] [address] [address] [address] Ruddy Oswald EGFR-AF CONGOLESE 54 mL/min/1.73m2 Critically low >=60 [facility] Comment on above: Performed By: #### C MP #### [facility] [address] [address] [address] Ruddy Oswald EGFR-NON AF CONGOLESE 45 mL/min/1.73m2 Critically low >=60 [facility] Comment on above: Performed By: #### C MP #### [facility] [address] [address] [address] Ruddy Oswald Globulin (S) [Mass/Vol] 3.3 g/dL Normal [facility] Comment on above: Performed By: #### C MP #### [facility] [address] [address] [address] Ruddy Oswald Glucose [Mass/Vol] 121 mg/dL Critically high 74-106 [facility] Comment on above: Performed By: #### C MP #### [facility] [address] [address] [address] Ruddy Oswald Potassium [Moles/Vol] 4.0 mmol/L Normal 3.5-5.1 [facility] Comment on above: Performed By: #### C MP #### [facility] [address] [address] [address] Ruddy Oswald Protein [Mass/Vol] 7.2 g/dL Normal 6.4-8.2 [facility] Comment on above: Performed By: #### C MP #### [facility] [address] [address] [address] Ruddy Oswald Sodium [Moles/Vol] 139 mmol/L Normal 136-145 [facility] Comment on above: Performed By: #### C MP #### [facility] [address] [place] [address] Dr. Ruddy Oswald Urea nitrogen [Mass/Vol] 40.0 mg/dL Critically high 7.0-18.0 [facility] Comment on above: Performed By: #### C MP #### [facility] [address] [place] [address] Dr. Ruddy Oswald Urea nitrogen/Creatinine [Mass ratio] 33.1 mg/mg Normal [facility] Comment on above: Performed By: #### C MP #### [facility] [address] [place] [address] Dr. Ruddy Oswald CBC AUTO DIFFon 01-31-2022 BASO # 0.0 103/ul Normal 0.0-0.1 [facility] Comment on above: Performed By: #### C BC #### [facility] [address] [place] [address] Dr. Ruddy Oswald Basophils/100 WBC (Bld) 0.7 % Normal 0.2-2.0 [facility] Comment on above: Performed By: #### C BC #### [facility] [address] [place] [address] Dr. Ruddy Oswald EO # 0.1 103/ul Normal 0.0-0.7 [facility] Comment on above: Performed By: #### C BC #### [facility] [address] [place] [address] Dr. Ruddy Oswald Eosinophils/100 WBC (Bld) 2.4 % Normal 0.9-7.0 [facility] Comment on above: Performed By: #### C BC #### [facility] [address] [place] [address] Dr. Ruddy Oswald Erythrocyte distribution width (RBC) [Ratio] 13.8 % Normal 11.0-15.0 [facility] Comment on above: Performed By: #### C BC #### [facility] [address] [place] [address] Dr. Ruddy Oswald Hematocrit (Bld) [Volume fraction] 39.0 % Normal 36.0-48.0 [facility] Comment on above: Performed By: #### C BC #### [facility] [address] [place] [address] Dr. Ruddy Oswald Hemoglobin (Bld) [Mass/Vol] 11.8 g/dL Critically low 12.0-16.0 [facility] Comment on above: Performed By: #### C BC #### [facility] [address] [place] [address] Dr. Ruddy Oswald IG # 0.01 10e3/ul Normal 0.00-0.03 [facility] Comment on above: Performed By: #### C BC #### [facility] [address] [place] [address] Dr. Ruddy Oswald IG % 0.2 % Normal 0.0-0.5 [facility] Comment on above: Performed By: #### C BC #### [facility] [address] [place] [address] Dr. Ruddy Oswald LYMPH # 1.5 103/ul Normal 1.2-3.8 [facility] Comment on above: Performed By: #### C BC #### [facility] [address] [place] [address] Dr. Ruddy Oswald Lymphocytes/100 WBC (Bld) 35.6 % Normal 20.5-60.0 [facility] Comment on above: Performed By: #### C BC #### [facility] [address] [place] [address] Dr. Ruddy Oswald MANUAL DIFF REQ NO Normal [facility] Comment on above: Performed By: #### C BC #### [facility] [address] [place] [address] Dr. Ruddy Oswald MCH (RBC) [Entitic mass] 26.1 pg Critically low 26.7-34.0 [facility] Comment on above: Performed By: #### C BC #### [facility] [address] [place] [address] Dr. Ruddy Oswald MCHC (RBC) [Mass/Vol] 30.3 g/dL Normal 29.9-35.2 [facility] Comment on above: Performed By: #### C BC #### [facility] [address] [address] [address] Ruddy Oswald MCV (RBC) [Entitic vol] 86.3 fL Normal 81.0-99.0 [facility] Comment on above: Performed By: #### C BC #### [facility] [address] [place] [address] Dr. Ruddy Oswald MONO # 0.3 103/ul Normal 0.3-0.8 [facility] Comment on above: Performed By: #### C BC #### [facility] [address] [place] [address] Dr. Ruddy Oswald Monocytes/100 WBC (Bld) 6.7 % Normal 1.7-12.0 [facility] Comment on above: Performed By: #### C BC #### [facility] [address] [place] [address] Dr. Ruddy Oswald NEUT # 2.3 103/ul Normal 1.4-6.5 [facility] Comment on above: Performed By: #### C BC #### [facility] [address] [place] [address] Dr. Ruddy Oswald Neutrophils/100 WBC (Bld) 54.4 % Normal 43.0-75.0 [facility] Comment on above: Performed By: #### C BC #### [facility] [address] [place] [address] Dr. Ruddy Oswald Platelet mean volume (Bld) [Entitic vol] 9.7 fL Normal 9.5-13.5 [facility] Comment on above: Performed By: #### C BC #### [facility] [address] [place] [address] Dr. Ruddy Oswald PLT 318 103/ul Normal 150-450 [facility] Comment on above: Performed By: #### C BC #### [facility] [address] [place] [address] Dr. Ruddy Oswald RBC 4.52 106/ul Normal 4.20-5.40 [facility] Comment on above: Performed By: #### C BC #### [facility] [address] [place] [address] Dr. Ruddy Oswald WBC 4.2 103/ul Normal 4.0-11.0 [facility] Comment on above: Performed By: #### C BC #### [facility] [address] [address] [address] Ruddy Oswald LIPID PROFILEon 01-31-2022 CHOL-HDL RATIO NORM SEE BELOW Normal [facility] Comment on above: Result Comment: 3.3 - 4.4 LOW RISK 4.4 - 7.1 AVERAGE RISK 7.1 - 11.0 MODERATE RISK >11.0 HIGH RISK Performed By: #### L IPID, CMP #### [facility] [address] [address] [address] Ruddy Oswald Cholesterol [Mass/Vol] 192 mg/dL Normal <=200 [facility] Comment on above: Performed By: #### L IPID, CMP #### [facility] [address] [address] [address] Ruddy Oswald Cholesterol in HDL [Mass/Vol] 60 mg/dL Normal 40-60 [facility] Comment on above: Performed By: #### L IPID, CMP #### [facility] [address] [address] [address] Ruddy Oswald Cholesterol in LDL [Mass/Vol] 109.0 mg/dL Normal [facility] Comment on above: Performed By: #### L IPID, CMP #### [facility] [address] [address] [address] Ruddy Oswald Cholesterol.total/C holesterol in HDL [Mass ratio] 3.2 {ratio} Normal [facility] Comment on above: Performed By: #### L IPID, CMP #### [facility] [address] [address] [address] Ruddy Oswald HDL NORMAL > or = 60 mg/dl - LO W CARDIOVASCULAR RISK <40 mg/dl - HIGH CARDIOVASCULAR RISK Normal [facility] Comment on above: Performed By: #### L IPID, CMP #### [facility] [address] [address] [address] Ruddy Oswald LDL CALC NORMAL SEE BELOW Normal [facility] Comment on above: Result Comment: <100 mg/dl OPTIMAL 100 - 129 mg/dl NEAR OR ABOVE OPTIMAL 130 - 159 mg/dl BORDERLINE HIGH 160 - 189 mg/dl HIGH >190 mg/dl VERY HIGH Performed By: #### L IPID, CMP #### [facility] [address] [place] [address] Dr. Ruddy Oswald Triglyceride [Mass/Vol] 115 mg/dL Normal <=150 [facility] Comment on above: Performed By: #### L IPID, CMP #### [facility] [address] [place] [address] Dr. Ruddy Oswald VLDL CALC 23.0 mg/dL Normal [facility] Comment on above: Performed By: #### L IPID, CMP #### [facility] [address] [place] [address] Dr. Ruddy Oswald MICROALBUMIN, RAND URon 07-0 mALB <1.3 Normal <=30.0 [facility] Comment on above: Performed By: #### M ALBR #### [facility] [address] [place] [address] Dr. Ruddy Oswald PROF 14(COMP METB)on 022 Albumin [Mass/Vol] 3.6 g/dL Normal 3.4-5.0 [facility] Comment on above: Performed By: #### L IPID, CMP #### [facility] [address] [place] [address] Dr. Ruddy Oswald Albumin/Globulin [Mass ratio] 1.1 {ratio} Normal [facility] Comment on above: Performed By: #### L IPID, CMP #### [facility] [address] [place] [address] Dr. Ruddy Oswald ALP [Catalytic activity/Vol] 57 U/L Normal 46-116 [facility] Comment on above: Performed By: #### L IPID, CMP #### [facility] [address] [place] [address] Dr. Ruddy Oswald ALT [Catalytic activity/Vol] 23 U/L Normal 14-59 [facility] Comment on above: Performed By: #### L IPID, CMP #### [facility] [address] [address] [address] Ruddy Oswald Anion gap [Moles/Vol] 11.0 mmol/L Normal [facility] Comment on above: Performed By: #### L IPID, CMP #### [facility] [address] [address] [address] Ruddy Oswald AST [Catalytic activity/Vol] 15 U/L Normal 15-37 [facility] Comment on above: Performed By: #### L IPID, CMP #### [facility] [address] [place] [address] Dr. Ruddy Oswald Bilirubin [Mass/Vol] 0.3 mg/dL Normal 0.2-1.0 [facility] Comment on above: Performed By: #### L IPID, CMP #### [facility] [address] [place] [address] Dr. Ruddy Oswald Calcium [Mass/Vol] 9.1 mg/dL Normal 8.5-10.1 [facility] Comment on above: Performed By: #### L IPID, CMP #### [facility] [address] [place] [address] Dr. Ruddy Oswald Chloride [Moles/Vol] 106 mmol/L Normal 98-107 [facility] Comment on above: Performed By: #### L IPID, CMP #### [facility] [address] [place] [address] Dr. Ruddy Oswald CO2 [Moles/Vol] 30.0 mmol/L Normal 21.0-32.0 [facility] Comment on above: Performed By: #### L IPID, CMP #### [facility] [address] [place] [address] Dr. Ruddy Oswald Creatinine [Mass/Vol] 0.98 mg/dL Normal 0.55-1.02 [facility] Comment on above: Performed By: #### L IPID, CMP #### [facility] [address] [place] [address] Dr. Ruddy Oswald EGFR-AF CONGOLESE >60 Normal >=60 [facility] Comment on above: Performed By: #### L IPID, CMP #### [facility] [address] [address] [address] Ruddy Oswald EGFR-NON AF CONGOLESE 57 mL/min/1.73m2 Critically low >=60 [facility] Comment on above: Performed By: #### L IPID, CMP #### [facility] [address] [address] [address] Ruddy Oswald Globulin (S) [Mass/Vol] 3.4 g/dL Normal [facility] Comment on above: Performed By: #### L IPID, CMP #### [facility] [address] [address] [address] Ruddy Oswald Glucose [Mass/Vol] 121 mg/dL Critically high 74-106 [facility] Comment on above: Performed By: #### L IPID, CMP #### [facility] [address] [place] [address] Dr. Ruddy Oswald Potassium [Moles/Vol] 5.0 mmol/L Normal 3.5-5.1 [facility] Comment on above: Performed By: #### L IPID, CMP #### [facility] [address] [address] [address] Ruddy Oswald Protein [Mass/Vol] 7.0 g/dL Normal 6.4-8.2 [facility] Comment on above: Performed By: #### L IPID, CMP #### [facility] [address] [address] [address] Ruddy Oswald Sodium [Moles/Vol] 142 mmol/L Normal 136-145 [facility] Comment on above: Performed By: #### L IPID, CMP #### [facility] [address] [address] [address] Ruddy Oswald Urea nitrogen [Mass/Vol] 30.0 mg/dL Critically high 7.0-18.0 [facility] Comment on above: Performed By: #### L IPID, CMP #### [facility] [address] [address] [address] Ruddy Oswald Urea nitrogen/Creatinine [Mass ratio] 30.6 mg/mg Normal [facility] Comment on above: Performed By: #### L IPID, CMP #### [facility] [address] [address] [address] Ruddy Oswald US BREAST LEFT LIMITEDon US BREAST LEFT LIMITED Patient: JENA MERAZ Exam Date: 11/08/2021 : 1955 Gender:F Ordering : DR LONDON YODER D.O. Admission #: [id number] Family : Order #: [id number] CLICK HERE TO VIEW EXAM RADIOLOGY REPORT [...] Diaz M.D. on 11/08/2021 at 09:55 Normal [facility] MG MAMM SCREEN 3D NITHYA CADon 09-28-2021 MG MAMM SCREEN 3D NITHYA CAD Patient: JENA MERAZ. Exam Date: 09/28/2021 : 1955 Gender:F Ordering : DR LONDON YODER D.O. Admission #: [id number] Family : Order #: [id number] CLICK HERE TO VIEW EXAM RADIOLOGY REPORT [...] leukemia cancer at age 78. LOCATION: The [facility] BREAST COMPOSITION: Scattered areas fibroglandular density. [...] Diaz M.D. on 09/28/2021 at 11:12 Normal [facility] XR DEXA BONE DENSITYon 09-28 XR [...] by: FUAD DIAZ Date: 2021-09-28 14:43 Normal [facility] Vital Signs Date Time Vital Sign Value Performing Clinician Germaine ramirez 05-21-2024 13:33-0400 Body height 167.6 cm John Rowley DO Work Phone: [employer] 05-21-2024 13:33-0400 Body mass index (BMI) [Ratio] 39.16 kg/m2 John Daveymario SALDIVAR [facility] Phone: [facility] 05-21-2024 13:33-0400 Body weight 110.04 kg John Daveymario SALDIVAR Work Phone: [facility] 05-21-2024 13:33-0400 Diastolic blood pressure 72 mm[Hg] John Rowley DO Work Phone: [facility] 05-21-2024 13:33-0400 Heart rate 81 /min John Ratliffalonso SALDIVAR Work Phone: [facility] 05-21-2024 13:33-0400 Systolic blood pressure 127 mm[Hg] John Daveymario SALDIVAR Work Phone: [facility] Encounters Encounter Date Encounter Type Care Provider Facility Start: 06-02-2024 End: 06-02-2024 Orders Only [facility] Comment on above: Ventral hernia witho ut obstruction or gangrene Start: 05-22-2024 ambulatory LONDON [facility] Start: 05-21-2024 End: 05-21-2024 Office outpatient new 45 minutes John Rowley DO Work Phone: [facility] Comment on above: Ventral hernia witho ut obstruction or gangrene (Primary Dx); Severe obesity with serious comorbidity and body mass index (BMI) 120% of 95th percentile to less than 140% of 95th percentile for age in pediatric patient, unspecified obesity type ([facility]); History of hypertension; History of renal insufficiency Start: 05-21-2024 End: 05-21-2024 [facility] Start: 05-11-[address] LONDON YODER Fac ility:[facility]1 Start: 04-22-2022 End: 04-22-[address] LONDON YODER Facility:[facility] Start: 01-31-2022 End: 02-01-[address] LONDON YODER Facility:[facility] Start: 11-08-2021 End: 11-09-[address] LONDON YODER Facility:[facility] Start: 09-28-2021 End: 09-29-[address] LONDON YODER Facility:[facility] Procedures Date Procedure Procedure Detail Performing Clinician Start: 05-30-2024 Comprehensive metabo lic panel John Rowley DO Work Phone: Start: 09-11-2022 Colonoscopy John Davey mario DO Work Phone: Plan of Treatment Date Care Activity Detail Author Start: 09-11-2032 Screening for malign ant neoplasm of colon Colonoscopy [facility] Start: 05-21-2025 Adult BMI Screening Adult BMI Screen ing [facility] Start: 05-21-2025 Tobacco Screening Tobacco Screening [facility] Start: 06-18-2024 End: 06-18-2024 Patient encounter procedure 06/18/2024 11:00 AM EST Office Visit [facility] [address] [place] [id number] Belen Ramos, PRODUCTION EXPEDITER[employer] [address] [address] [place], [place] [id number] [facility] General Surgery Start: 03-30-2024 Influenza vaccination Influenza Vacc ine [facility] Start: 2020 Fall Risk Screening Fall Risk Screen ing [facility] Start: 04-04-2018 Administration of varicella zoster vaccine Zoster (Shingles) Vaccine (2 of 3) [facility] Start: 1974 DTaP,Tdap and Td Vaccines (1 - Tdap) DTaP,Tdap and Td Vaccines (1 - Tdap) [facility] Start: 1973 Adult BMI Follow Up Plan Adult BMI Follow Up Plan [facility] Start: 1967 Depression Screening Depression Scre ening [facility] Start: 1955 Medicare Annual Well ness Visit Medicare Annual Wellness Visit [facility] End: 05-21-2025 CBC panel - Blood by Automated count CBC without diff Lab Routine Ventral hernia without obstruction or gangrene 1 Occurrences starting 05/21/2024 until 05/21/2025 [facility] Phone: Comment on above: 1 Occurrences starti ng 05/21/2024 until 05/21/2025 End: 05-21-2025 Comprehensive metabolic 2000 panel - Serum or Plasma Comprehensive metabolic panel Lab Routine Ventral hernia without obstruction or gangrene 1 Occurrences starting 05/21/2024 until 05/21/2025 [facility] Comment on above: 1 Occurrences starti ng 05/21/2024 until 05/21/2025 End: 05-21-2025 [facility]listed [facility] Procedure [facility] Procedure Procedures Routine Ventral hernia without obstruction or gangrene 1 Occurrences starting 05/21/2024 until 05/21/2025 [facility] Comment on above: 1 Occurrences starti ng 05/21/2024 until 05/21/2025 Immunizations Immunization Date Immunization Notes Care Provider Drea houston 05-07-2023 influenza virus vaccine, unspecified formulation John Rowley DO Work Phone: [employer] 02-07-2018 zoster vaccine, unspecified formulation John Rowley DO [facility] Payers Date Payer Category Payer Medicare HMO ANTH MEDICARE [id number] 1959 Unknown [id number] 1955 Unknown [id number] 3 1955 Unknown [id number] 3 1955 Unknown [id number] 3 1955 Unknown [id number] 3 1955 Unknown [id number] 3 1955 Unknown [id number] 86 1955 Unknown [id number] 86 1955 Unknown [id number] 86 1955 Unknown [id number] 86 Social History Date Type Detail Facility Start: 05-21-2024 Tobacco smoking stat [facility] Ex-smoker [facility] Start: 07-30-2000 End: 07-30-2007 History of tobacco use Current smoker [facility] Start: 07-30-2000 End: 07-30-2007 History of tobacco use Cigarette Smoker [facility] Start: 01-08-2019 End: 05-21-2024 Cigarettes smoked current (pack per day) - Reported 1 [facility] Start: 05-21-2024 Tobacco use and exposure Smokeless tobacco non-user [facility] Start: 05-21-2024 Alcoholic beverage intake Ex-drinker (finding) [facility] Start: 01-08-2019 End: 05-21-2024 Tobacco use panel [facility] Childcare Unknown [facility] Start: 1955 Sex assigned at Not on file P [facility] Start: 03-04-2015 Sex Female (finding) [facility] History of Present illness Narrative 05-21-2024 John Rowley, DO - 05/21/2024 1:45 PM EDT Note Date & Type Note Facility 05-21-2024 History of Presen t illness Narrative Images from the original note were not included. [facility] [address] [facility] [id number] CONSULT NOTE CHIEF COMPLAINT Chief Complaint Patient presents with Hernia Ventral hernia, [facility] ER 05/13/24 Jena Meraz is a 68 y.o. female who presents with complaints of a right-sided abdominal wall hernia which she was found to have on a CT scan performed at the [facility] on 05/13/2024. Patient went to the emergency [...] creatinine of 1.34. CT scan from the [facility] as well as ED report and HIDA [...] Past Surgical History: Procedure Laterality Date COLONOSCOPY 2014 COLONOSCOPY N/A 09/11/2022 Performed by John Rowley DO at [facility] HYSTERECTOMY 2008 TUBAL LIGATION 1986 SOCIAL [...] Types: Cigarettes Start date: 07/30/2000 Quit date: 2007 Years since quittin.8 Smokeless tobacco: Never Vaping [...] patient/family/caregiver Referring and communicating with other health care transition mgr Ventral hernia without obstruction or gangrene [K43.9] [...] for your understanding. documented in this encounter [facility] Evaluation note Note Date & Type Note Facility Evaluation note Diagnosis Ventral hernia without obstruction or gangrene- Primary Unspecified ventral hernia without mention of obstruction or gangrene Severe obesity with serious comorbidity and body mass index (BMI) 120% of 95th percentile to less than 140% of 95th percentile for age in pediatric patient, unspecified obesity type ([facility]) History of hypertension Personal history of other diseases of circulatory system History of renal insufficiency documented in this encounter [facility] Evaluation note Note Date & Type Note Facility Evaluation note Diagnosis Ventral hernia without obstruction or gangrene Unspecified ventral hernia without mention of obstruction or gangrene documented in this encounter [facility] Instructions Note Date & Type Note Facility Instructions Not on filedocumented in this en counter [facility] Instructions Note Date & Type Note Facility Instructions Not on filedocumented in this en counter [facility] Summary Purpose Family History No Family History Records FoundNo Family History Records Found Advance Directives No Advanced Directives Records FoundNo Advanced Directives Records Found Additional Source Comments INFORMATION SOURCE (unrecogn ized section and content) DATE CREATED AUTHOR 05/09/2022 [facility] DATE CREATED AUTHOR AUTHOR'S ORGANIZ ATION 05/23/2024 [facility] Reason for Visit (unrecogniz ed section and content) Reason Comments Hernia Ventral hernia, [facility] ER 05/13/24 Care Teams (unrecognized sec tion and content) 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 [facility]. provides no warranty or guarantee of the accuracy or completeness of information in this document.
[2024-06-04] MEDS: LACTATED RINGER'S SOLUTION 1,000 ML 50 ML IV (09:01)
[2024-06-04] MEDS: CEFAZOLIN SODIUM/DEXTROSE,ISO 2 GM/50 ML PIGGYBACK IV (10:22)
--- NOTE | 2024-06-04 10:26 | P.GSPRC_ITS ---
Date of procedure: 06/04/24 Indications for Procedure: spigelian hernia Pre-op diagnosis: Spigelian hernia Post-op diagnosis: other (Spigelian hernia/small bowel adhesions to abdominal wall) Procedure: Da Arthur repair of spigelian hernia with mesh Anesthesia: PATRICK Surgeon: Terry Pedersen Procedure Summary: Procedure: 1. Da Arthur assisted laparoscopic ventral hernia repair with mesh placement #2. Lysis of adhesions small bowel to abdominal wall CPT code to be billed: 1.? [id number] 2.? [id number] Estimated blood loss minimal Specimens: None Complications: None Indications: Jena Martínez who presented with abdominal pain and found to have a spigelian hernia.? The plan for a ventral hernia repair with mesh was discussed with the patient and family. After a thorough explanation of the risks, benefits, and alternatives the patient agreed to proceed with the operation. Procedure in Detail: After again explaining the risks and benefits of the procedure in the preoperative care unit consent was obtained.? The patient was taken back to the operative room and placed on the operative room table. After undergoing general tracheal anesthesia preoperative antibiotics were given.? Appropriate time-out was performed.? Arms were tucked at the side.? Then the bed was a positioned appropriately.? The abdomen was prepped and draped in normal sterile fashion. At this point a Veress needle was placed in the left upper quadrant subcostal location.? And then we began with insufflation of the abdomen up to 15.? All the ports were placed laterally.? The camera port incision was entered using a Visiport technique with a 8 mm Robotic trocar. The scope and camera was brought in and then 2 more ports were placed. The inferior 8 mm DA Arthur ports was placed, and the 12 mm port was placed superior to decrease the risk of incisional hernia.? All the ports were placed under direct visualization. The [employer] robot was brought in and docked. At this point began with taking down small bowel adhesions to the anterior abdominal wall, in the location of the hernia. The fascia was freed up from the preperitoneal fat.? The fascia was reapproximated using 0 V-lock suture. The defect was small about 1.5 cm. The abdomen was deinsufflated to 8 mm mercury to allow adequate closure of the fascia, under no tension. At this time we brought in appropriately sized piece of mesh as listed above and sutured it in the? circumferential location to prevent any bowel from slipping underneath the mesh and forming a internal hernia, also to limit the exposure of mesh to bowel to limit adhesion formation.? This was secured nicely to the fascia medially to also decrease seroma formation.? Pictures were taken at all points of fixation. Once we were happy with mesh placement,The abdomen was deinsufflated.? Skin was reapproximated with interrupted 4-0 Monocryl.? Dermabond was placed all skin incisions. The patient was extubated and handled the procedure very well. Was taken to the PACU and will be started on a clear liquid diet and advanced as tolerated.? The patient will follow up with me in 2 weeks. Sponge, lap, and instrument counts were correct x2 at the end of the procedure. The patient tolerated the procedure well, was extubated in the operating room, and taken to the PACU in excellent condition. ? Estimated blood loss (mL): 2 Complications: No Pathology: none sent Condition: stable Disposition: PACU
[2024-06-04] MEDS: LACTATED RINGER'S SOLUTION 1,000 ML 1000 ML IV (11:30)
[2024-06-04] MEDS: BUPIVACAINE HCL 0.5% PF 50 MG/10 ML VIAL 15 ML INJ (12:35)
[2024-06-04] MEDS: HYDROMORPHONE HCL 0.5 MG/0.5 ML SYRINGE IV ×2 (12:54→13:14)
[2024-06-04] MEDS: OXYCODONE HCL/ACETAMINOPHEN 5MG/325MG 1 TAB PO (13:54)
== END 2024-06-04 14:44 | disposition home or self-care (01) ==
PROVIDERS: PCP Family Medicine; Visit Provider Surgery
PROC: (CPT 49591; principal; 2024-06-04 09:05)
DX: K43.9 Ventral hernia without obstruction or gangrene (principal); K66.0 Peritoneal adhesions (postprocedural) (postinfection); Z87.891 Personal history of nicotine dependence; Z90.710 Acquired absence of both cervix and uterus; Z79.82 Long term (current) use of aspirin; E78.5 Hyperlipidemia, unspecified; K21.9 Gastro-esophageal reflux disease without esophagitis; N18.9 Chronic kidney disease, unspecified; I12.9 Hypertensive chronic kidney disease with stage 1 through stage 4 chronic kidney disease, or unspecified chronic kidney disease
CPT/HCPCS: 49591; C1781; J0665; J0690; J1100; J1171; J1885; J2250; J2405; J2704; J2710; J3010

== ENCOUNTER 2024-09-08 11:18 | Emergency (ER) | payer MEDICARE, SELFPAY ==
[2024-09-08 11:21] VITALS: BP 125/73; PULSE 78; TEMP 36.4; O2SAT 96; BMI 38.7
--- OUTSIDE RECORDS SUMMARY | 2024-09-08 11:43 | XMS_ITS | CCD ---
Author Organization [facility] Care Team Providers Care Optometric Tech Name Role Phone PARESH, DR LONDON Weaver [...] DR LONDON Weaver Consulting Unavailable Zieber, DR Meriad Consulting Unavailable YODER, DR LONDON Weaver Admitting Unavailable YODER, DR LONDON Weaver Attending Unavailable YODER, DR LONDON Weaver Primary Care Unavailable YODER, DR LONDON Weaver Consulting Unavailable Yoder [place] SALDIVAR Primary Care Provider JOHN ROWLEY Attending Unavailable YODER, LONDON Weaver Referring Unavailable YODER, LONDON Weaver Primary Care Unavailable YODER, LONDON Weaver Referring Unavailable YODER, LONDON Weaver Primary Care Unavailable YODER, LONDON Weaver Referring Unavailable YODER, LONDON Weaver Primary Care Unavailable NIRALI CLAY Attending Unavailable YODERLONDON Referring Unavailable YODER, LONDON Weaver Primary Care Unavailable Medications Current Medications Medication Drug Class(es) Dates Sig (Normalized) Sig (Original) aspirin 81 mg delayed release oral tablet (3 sources) Platelet Aggregation Inhibitor, Nonsteroidal Anti-inflammatory Drug take 1 tablet by mouth in the morning aspirin 81 mg Take 1 tablet (81 mg total) by mouth in the morning. Active chlorthalidone 25 mg oral tablet (3 sources) Thiazide-like Diuretic Start: 10-01-2022 take 1 tablet by mouth once daily chlorthalidone (HYGROTON) 25 mg tablet Take 1 tablet (25 mg total) by mouth daily. 04/29/2022 Active lisinopril 40 mg oral tablet (3 sources) Angiotensin Converting Enzyme Inhibitor Start: 04-29-2022 take 1 tablet by mouth in the morning lisinopriL (PRINIVIL,ZESTRIL) 40 mg tablet Take 1 tablet (40 mg total) by mouth in the morning. 04/29/2022 Active MULTIVITAMIN ORAL (3 sources) MULTIVITAMIN ORA L Take by mouth daily. Active omeprazole 40 mg delayed release oral capsule (3 sources) Proton Pump Inhibitor Start: 04-29-2022 take 1 capsule by mouth in the morning omeprazole (PriLOSEC) 40 mg capsule Take 1 capsule (40 mg total) by mouth in the morning. 04/29/2022 Active simvastatin 20 mg oral tablet (3 sources) HMG-CoA Reductase Inhibitor Start: 04-29-2022 take 1 tablet by mouth in the morning simvastatin (ZOCOR) 20 mg tablet Take 1 tablet (20 mg total) by mouth in the morning. 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; Translations: [CARE HOME CURRENT USE OF ASPIRIN] Onset: 04-25-2022 Episodic Other aftercare (1 source) Other long-term (current) drug therapy; Translations: [OTH CARE HOME CURRENT DRUG THERAPY] Onset: 04-25-2022 Episodic Other circulatory disease (1 source) H/O: hypertension; Translations: [Personal history of other diseases of the circulatory system] 05-21-2024 Episodic Other circulatory disease (1 source) Personal history of other diseases of the circulatory system; Translations: [Personal history of other diseases of the circulatory system] Onset: 05-21-2024 Episodic Other gastrointestinal disorders (1 source) Personal history of other diseases of the digestive system; Translations: [Personal history of other diseases of the digestive system] Onset: 06-18-2024 Episodic Other nutritional; endocrine; and metabolic disorders (1 source) Severe obesity; Translations: [Morbid (severe) obesity due to excess calories] 05-21-2024 Chronic Other nutritional; endocrine; and metabolic disorders (1 source) Morbid (severe) obesity due to excess calories; Translations: [Morbid (severe) obesity due to excess calories] Onset: 05-21-2024 Chronic Residual codes; unclassified (1 source) History of hernia repair; Translations: [Other specified postprocedural states] 06-18-2024 Episodic Residual codes; unclassified (1 source) Other specified postprocedural states; Translations: [Other specified postprocedural states] Onset: 06-18-2024 Episodic Residual codes; unclassified (1 source) Pain, unspecified; Translations: [Pain, unspecified] Onset: 05-22-2024 Episodic Screening and history of mental health and substance abuse codes (1 source) Personal history of nicotine dependence; Translations: [PERSONAL HISTORY OF NICOTINE DEPEND] Onset: 04-25-2022 Episodic Unclassified (1 source) CHRN KIDNEY DISEASE STG 3 UNSP; Translations: [CHRN KIDNEY DISEASE STG 3 UNSP] Onset: 02-03-2022 Unclassified (1 source) POST-OP VISIT Onset: 06-18-2024 Unclassified (1 source) Body mass index (BMI) [...] pane eleni 05-30-2024 External Anion Gap 12.9 [facility] External Blood Urea Nitrogen Bun 33 [facility] External Calcium Ca 9.5 [facility] External Chloride 105 [facility] External Co2 / Carbon Dioxide 29.4 [facility] External Creatinine 1.29 [facility] External Gfr Amer 50 [facility] External Gfr Non Amer 41 [facility] External Glucose Fasting Or Random (Fbs) 122 [facility] External Potassium K 4.3 [facility] External Sodium Na 143 [facility] CBC AUTO DIFFon 04-22-2022 BASO # 0.0 103/ul Normal 0.0-0.1 [facility] Comment on above: Performed By: #### C BC #### [facility] [address] [address] [address] Ruddy Oswald Basophils/100 WBC (Bld) 0.7 % Normal 0.2-2.0 [facility] Comment on above: Performed By: #### C BC #### [facility] [address] [place], [place] [address] Dr. Ruddy Oswald EO # 0.1 103/ul Normal 0.0-0.7 [facility] Comment on above: Performed By: #### C BC #### [facility] [address] [place] [address] Dr. Ruddy Oswald Eosinophils/100 WBC (Bld) 1.4 % Normal 0.9-7.0 [facility] Comment on above: Performed By: #### C BC #### [facility] [address] [place] [address] Dr. Ruddy Oswald Erythrocyte distribution width (RBC) [Ratio] 14.6 % Normal 11.0-15.0 [facility] Comment on above: Performed By: #### C BC #### [facility] [address] [place] [address] Dr. Ruddy Oswald Hematocrit (Bld) [Volume fraction] 40.2 % Normal 36.0-48.0 [facility] Comment on above: Performed By: #### C BC #### [facility] [address] [place] [address] Dr. Ruddy Oswald Hemoglobin (Bld) [Mass/Vol] 12.6 g/dL Normal 12.0-16.0 [facility] Comment on above: Performed By: #### C BC #### [facility] [address] [place] [address] Dr. Ruddy Oswald IG # 0.01 10e3/ul Normal 0.00-0.03 [facility] Comment on above: Performed By: #### C BC #### [facility] [address] [place] [address] Dr. Ruddy Oswald IG % 0.2 % Normal 0.0-0.5 [facility] Comment on above: Performed By: #### C BC #### [facility] [address] [place] [address] Dr. Ruddy Oswald LYMPH # 1.5 103/ul Normal 1.2-3.8 [facility] Comment on above: Performed By: #### C BC #### [facility] [address] [place] [address] Dr. Ruddy Oswald Lymphocytes/100 WBC (Bld) 32.8 % Normal 20.5-60.0 [facility] Comment on above: Performed By: #### C BC #### [facility] [address] [place] [address] Dr. Ruddy Oswald MANUAL DIFF REQ NO Normal [facility] Comment on above: Performed By: #### C BC #### [facility] [address] [place] [address] Dr. Ruddy Oswald MCH (RBC) [Entitic mass] 26.7 pg Normal 26.7-34.0 [facility] Comment on above: Performed By: #### C BC #### [facility] [address] [place] [address] Dr. Ruddy Oswald MCHC (RBC) [Mass/Vol] 31.3 g/dL Normal 29.9-35.2 [facility] Comment on above: Performed By: #### C BC #### [facility] [address] [place] [address] Dr. Ruddy Oswald MCV (RBC) [Entitic vol] 85.2 fL Normal 81.0-99.0 [facility] Comment on above: Performed By: #### C BC #### [facility] [address] [place] [address] Dr. Ruddy Oswald MONO # 0.4 103/ul Normal 0.3-0.8 [facility] Comment on above: Performed By: #### C BC #### [facility] [address] [place] [address] Dr. Ruddy Oswald Monocytes/100 WBC (Bld) 8.6 % Normal 1.7-12.0 [facility] Comment on above: Performed By: #### C BC #### [facility] [address] [place] [address] Dr. Ruddy Oswald NEUT # 2.5 103/ul Normal 1.4-6.5 [facility] Comment on above: Performed By: #### C BC #### [facility] [address] [place] [address] Dr. Ruddy Oswald Neutrophils/100 WBC (Bld) 56.3 % Normal 43.0-75.0 [facility] Comment on above: Performed By: #### C BC #### [facility] [address] [address] [address] Ruddy Oswald Platelet mean volume (Bld) [Entitic vol] 9.4 fL Critically low 9.5-13.5 [facility] Comment on above: Performed By: #### C BC #### [facility] [address] [address] [address] Ruddy Oswald PLT 269 103/ul Normal 150-450 [facility] Comment on above: Performed By: #### C BC #### [facility] [address] [address] [address] Ruddy Oswald RBC 4.72 106/ul Normal 4.20-5.40 [facility] Comment on above: Performed By: #### C BC #### [facility] [address] [address] [address] Ruddy Oswald WBC 4.4 103/ul Normal 4.0-11.0 [facility] Comment on above: Performed By: #### C BC #### [facility] [address] ABD/PELVIS WO CONon [...] SHADY WARE Date: 2022-04-22 12:27 Normal [facility] PROF 14(COMP METB)on 04-22- 022 Albumin [Mass/Vol] 3.9 g/dL Normal 3.4-5.0 [facility] Comment on above: Performed By: #### C MP #### [facility] [address] [place] [address] Dr. Ruddy Oswald Albumin/Globulin [Mass ratio] 1.2 {ratio} Normal [facility] Comment on above: Performed By: #### C MP #### [facility] [address] [place] [address] Dr. Ruddy Oswald ALP [Catalytic activity/Vol] 53 U/L Normal 46-116 [facility] Comment on above: Performed By: #### C MP #### [facility] [address] [place] [address] Dr. Ruddy Oswald ALT [Catalytic activity/Vol] 20 U/L Normal 14-59 [facility] Comment on above: Performed By: #### C MP #### [facility] [address] [place] [address] Dr. Ruddy Oswald Anion gap [Moles/Vol] 9.1 mmol/L Normal [facility] Comment on above: Performed By: #### C MP #### [facility] [address] [place] [address] Dr. Ruddy Oswald AST [Catalytic activity/Vol] 13 U/L Critically low 15-37 [facility] Comment on above: Performed By: #### C MP #### [facility] [address] [place] [address] Dr. Ruddy Oswald Bilirubin [Mass/Vol] 0.4 mg/dL Normal 0.2-1.0 [facility] Comment on above: Performed By: #### C MP #### [facility] [address] [place] [address] Dr. Ruddy Oswald Calcium [Mass/Vol] 9.3 mg/dL Normal 8.5-10.1 [facility] Comment on above: Performed By: #### C MP #### [facility] [address] [address] [address] Ruddy Oswald Chloride [Moles/Vol] 104 mmol/L Normal 98-107 [facility] Comment on above: Performed By: #### C MP #### [facility] [address] [address] [address] Ruddy Oswald CO2 [Moles/Vol] 29.9 mmol/L Normal 21.0-32.0 [facility] Comment on above: Performed By: #### C MP #### [facility] [address] [address] [address] Ruddy Oswald Creatinine [Mass/Vol] 1.21 mg/dL Critically high 0.55-1.02 [facility] Comment on above: Performed By: #### C MP #### [facility] [address] [address] [address] Ruddy Oswald EGFR-AF MALAWIAN 54 mL/min/1.73m2 Critically low >=60 [facility] Comment on above: Performed By: #### C MP #### [facility] [address] [place] [address] Dr. Ruddy Oswald EGFR-NON AF MALAWIAN 45 mL/min/1.73m2 Critically low >=60 [facility] Comment on above: Performed By: #### C MP #### [facility] [address] [address] [address] Ruddy Oswald Globulin (S) [Mass/Vol] 3.3 g/dL Normal [facility] Comment on above: Performed By: #### C MP #### [facility] [address] [address] [address] Ruddy Oswald Glucose [Mass/Vol] 121 mg/dL Critically high 74-106 [facility] Comment on above: Performed By: #### C MP #### [facility] [address] [address] [address] Ruddy Oswald Potassium [Moles/Vol] 4.0 mmol/L Normal 3.5-5.1 [facility] Comment on above: Performed By: #### C MP #### [facility] [address] [place] [address] Dr. Ruddy Oswald Protein [Mass/Vol] 7.2 g/dL Normal 6.4-8.2 [facility] Comment on above: Performed By: #### C MP #### [facility] [address] [place] [address] Dr. Ruddy Oswald Sodium [Moles/Vol] 139 mmol/L Normal 136-145 [facility] Comment on above: Performed By: #### C MP #### [facility] [address] [place] [address] Dr. Ruddy Oswald Urea nitrogen [Mass/Vol] 40.0 mg/dL Critically high 7.0-18.0 [facility] Comment on above: Performed By: #### C MP #### [facility] [address] [place] [address] Dr. Ruddy Oswald Urea nitrogen/Creatinine [Mass ratio] 33.1 mg/mg Normal [facility] Comment on above: Performed By: #### C MP #### [facility] [address] [place] [address] Dr. Ruddy Oswald CBC AUTO DIFFon 01-31-2022 BASO # 0.0 103/ul Normal 0.0-0.1 [facility] Comment on above: Performed By: #### C BC #### [facility] [address] [place] [address] Dr. Ruddy Oswald Basophils/100 WBC (Bld) 0.7 % Normal 0.2-2.0 [facility] Comment on above: Performed By: #### C BC #### [facility] [address] [place] [address] Dr. Ruddy Oswald EO # 0.1 103/ul Normal 0.0-0.7 [facility] Comment on above: Performed By: #### C BC #### [facility] [address] [place] [address] Dr. Ruddy Oswald Eosinophils/100 WBC (Bld) 2.4 % Normal 0.9-7.0 [facility] Comment on above: Performed By: #### C BC #### [facility] [address] [place] [address] Dr. Ruddy Oswald Erythrocyte distribution width (RBC) [Ratio] 13.8 % Normal 11.0-15.0 [facility] Comment on above: Performed By: #### C BC #### [facility] [address] [place] [address] Dr. Ruddy Oswald Hematocrit (Bld) [Volume fraction] 39.0 % Normal 36.0-48.0 [facility] Comment on above: Performed By: #### C BC #### [facility] [address] [place] [address] Dr. Ruddy Oswald Hemoglobin (Bld) [Mass/Vol] 11.8 g/dL Critically low 12.0-16.0 [facility] Comment on above: Performed By: #### C BC #### [facility] [address] [place] [address] Dr. Ruddy Oswald IG # 0.01 10e3/ul Normal 0.00-0.03 [facility] Comment on above: Performed By: #### C BC #### [facility] [address] [place] [address] Dr. Ruddy Oswald IG % 0.2 % Normal 0.0-0.5 [facility] Comment on above: Performed By: #### C BC #### [facility] [address] [place] [address] Dr. Ruddy Oswald LYMPH # 1.5 103/ul Normal 1.2-3.8 [facility] Comment on above: Performed By: #### C BC #### [facility] [address] [place] [address] Dr. Ruddy Oswald Lymphocytes/100 WBC (Bld) 35.6 % Normal 20.5-60.0 [facility] Comment on above: Performed By: #### C BC #### [facility] [address] [place] [address] Dr. Ruddy Oswald MANUAL DIFF REQ NO Normal [facility] Comment on above: Performed By: #### C BC #### [facility] [address] [place] [address] Dr. Ruddy Oswald MCH (RBC) [Entitic mass] 26.1 pg Critically low 26.7-34.0 [facility] Comment on above: Performed By: #### C BC #### [facility] [address] [place] [address] Dr. Ruddy Oswald MCHC (RBC) [Mass/Vol] 30.3 g/dL Normal 29.9-35.2 [facility] Comment on above: Performed By: #### C BC #### [facility] [address] [place] [address] Dr. Ruddy Oswald MCV (RBC) [Entitic vol] 86.3 fL Normal 81.0-99.0 [facility] Comment on above: Performed By: #### C BC #### [facility] [address] [place] [address] Dr. Ruddy Oswald MONO # 0.3 103/ul Normal 0.3-0.8 [facility] Comment on above: Performed By: #### C BC #### [facility] [address] [place] [address] Dr. Ruddy Oswald Monocytes/100 WBC (Bld) 6.7 % Normal 1.7-12.0 [facility] Comment on above: Performed By: #### C BC #### [facility] [address] [place] [address] Dr. Ruddy Oswald NEUT # 2.3 103/ul Normal 1.4-6.5 [facility] Comment on above: Performed By: #### C BC #### [facility] [address] [place] [address] Dr. Ruddy Oswald Neutrophils/100 WBC (Bld) 54.4 % Normal 43.0-75.0 [facility] Comment on above: Performed By: #### C BC #### [facility] [address] [place] [address] Dr. Ruddy Oswald Platelet mean volume (Bld) [Entitic vol] 9.7 fL Normal 9.5-13.5 [facility] Comment on above: Performed By: #### C BC #### [facility] [address] [address] [address] Ruddy Oswald PLT 318 103/ul Normal 150-450 [facility] Comment on above: Performed By: #### C BC #### [facility] [address] [place] [address] Dr. Ruddy Oswald RBC 4.52 106/ul Normal 4.20-5.40 [facility] Comment on above: Performed By: #### C BC #### [facility] [address] [place] [address] Dr. Ruddy Oswald WBC 4.2 103/ul Normal 4.0-11.0 [facility] Comment on above: Performed By: #### C BC #### [facility] [address] [place] [address] Dr. Ruddy Oswald LIPID PROFILEon 01-31-2022 CHOL-HDL RATIO NORM SEE BELOW Normal [facility] Comment on above: Result Comment: 3.3 - 4.4 LOW RISK 4.4 - 7.1 AVERAGE RISK 7.1 - 11.0 MODERATE RISK >11.0 HIGH RISK Performed By: #### L IPID, CMP #### [facility] [address] [place] [address] Dr. Ruddy Oswald Cholesterol [Mass/Vol] 192 mg/dL Normal <=200 [facility] Comment on above: Performed By: #### L IPID, CMP #### [facility] [address] [place] [address] Dr. Ruddy Oswald Cholesterol in HDL [Mass/Vol] 60 mg/dL Normal 40-60 [facility] Comment on above: Performed By: #### L IPID, CMP #### [facility] [address] [place] [address] Dr. Ruddy Oswald Cholesterol in LDL [Mass/Vol] 109.0 mg/dL Normal [facility] Comment on above: Performed By: #### L IPID, CMP #### [facility] [address] [place] [address] Dr. Ruddy Oswald Cholesterol.total/C holesterol in HDL [Mass ratio] 3.2 {ratio} Normal [facility] Comment on above: Performed By: #### L IPID, CMP #### [facility] [address] [address] [address] Ruddy Oswald HDL NORMAL > or = 60 mg/dl - LO W CARDIOVASCULAR RISK <40 mg/dl - HIGH CARDIOVASCULAR RISK Normal [facility] Comment on above: Performed By: #### L IPID, CMP #### [facility] [address] [address] [address] Ruddy Oswald LDL CALC NORMAL SEE BELOW Normal [facility] Comment on above: Result Comment: <100 mg/dl OPTIMAL 100 - 129 mg/dl NEAR OR ABOVE OPTIMAL 130 - 159 mg/dl BORDERLINE HIGH 160 - 189 mg/dl HIGH >190 mg/dl VERY HIGH Performed By: #### L IPID, CMP #### [facility] [address] [address] [address] Ruddy Oswald Triglyceride [Mass/Vol] 115 mg/dL Normal <=150 [facility] Comment on above: Performed By: #### L IPID, CMP #### [facility] [address] [address] [address] Ruddy Oswald VLDL CALC 23.0 mg/dL Normal [facility] Comment on above: Performed By: #### L IPID, CMP #### [facility] [address] [address] [address] Ruddy Oswald MICROALBUMIN, RAND URon 07-0 mALB <1.3 Normal <=30.0 [facility] Comment on above: Performed By: #### M ALBR #### [facility] [address] [address] [address] Ruddy Oswald PROF 14(COMP METB)on 022 Albumin [Mass/Vol] 3.6 g/dL Normal 3.4-5.0 [facility] Comment on above: Performed By: #### L IPID, CMP #### [facility] [address] [address] [address] Ruddy Oswald Albumin/Globulin [Mass ratio] 1.1 {ratio} Normal [facility] Comment on above: Performed By: #### L IPID, CMP #### [facility] [address] [place] [address] Dr. Ruddy Oswald ALP [Catalytic activity/Vol] 57 U/L Normal 46-116 [facility] Comment on above: Performed By: #### L IPID, CMP #### [facility] [address] [place] [address] Dr. Ruddy Oswald ALT [Catalytic activity/Vol] 23 U/L Normal 14-59 [facility] Comment on above: Performed By: #### L IPID, CMP #### [facility] [address] [place] [address] Dr. Ruddy Oswald Anion gap [Moles/Vol] 11.0 mmol/L Normal [facility] Comment on above: Performed By: #### L IPID, CMP #### [facility] [address] [place] [id number] Dr. Ruddy Oswald AST [Catalytic activity/Vol] 15 U/L Normal 15-37 [facility] Comment on above: Performed By: #### L IPID, CMP #### [facility] [address] [place] [address] Dr. Ruddy Oswald Bilirubin [Mass/Vol] 0.3 mg/dL Normal 0.2-1.0 [facility] Comment on above: Performed By: #### L IPID, CMP #### [facility] [address] [place] [address] Dr. Ruddy Oswald Calcium [Mass/Vol] 9.1 mg/dL Normal 8.5-10.1 [facility] Comment on above: Performed By: #### L IPID, CMP #### [facility] [address] [place] [address] Dr. Ruddy Oswald Chloride [Moles/Vol] 106 mmol/L Normal 98-107 [facility] Comment on above: Performed By: #### L IPID, CMP #### [facility] [address] [place] [address] Dr. Ruddy Oswald CO2 [Moles/Vol] 30.0 mmol/L Normal 21.0-32.0 [facility] Comment on above: Performed By: #### L IPID, CMP #### [facility] [address] [address] [address] Ruddy Oswald Creatinine [Mass/Vol] 0.98 mg/dL Normal 0.55-1.02 [facility] Comment on above: Performed By: #### L IPID, CMP #### [facility] [address] [address] [address] Ruddy Oswald EGFR-AF MALAWIAN >60 Normal >=60 [facility] Comment on above: Performed By: #### L IPID, CMP #### [facility] [address] [address] [address] Ruddy Oswald EGFR-NON AF MALAWIAN 57 mL/min/1.73m2 Critically low >=60 [facility] Comment on above: Performed By: #### L IPID, CMP #### [facility] [address] [address] [address] Ruddy Oswald Globulin (S) [Mass/Vol] 3.4 g/dL Normal [facility] Comment on above: Performed By: #### L IPID, CMP #### [facility] [address] [address] [address] Ruddy Oswald Glucose [Mass/Vol] 121 mg/dL Critically high 74-106 [facility] Comment on above: Performed By: #### L IPID, CMP #### [facility] [address] [address] [address] Ruddy Oswald Potassium [Moles/Vol] 5.0 mmol/L Normal 3.5-5.1 [facility] Comment on above: Performed By: #### L IPID, CMP #### [facility] [address] [address] [address] Ruddy Oswald Protein [Mass/Vol] 7.0 g/dL Normal 6.4-8.2 [facility] Comment on above: Performed By: #### L IPID, CMP #### [facility] [address] [address] [address] Ruddy Oswald Sodium [Moles/Vol] 142 mmol/L Normal 136-145 [facility] Comment on above: Performed By: #### L IPID, CMP #### [facility] [address] [address] [address] Ruddy Oswald Urea nitrogen [Mass/Vol] 30.0 mg/dL Critically high 7.0-18.0 [facility] Comment on above: Performed By: #### L IPID, CMP #### [facility] [address] [address] [address] Ruddy Oswald Urea nitrogen/Creatinine [Mass ratio] 30.6 mg/mg Normal [facility] Comment on above: Performed By: #### L IPID, CMP #### [facility] [address] [place] [address] Dr. Ruddy Oswald US BREAST LEFT LIMITEDon US BREAST LEFT LIMITED Patient: JENA MERAZ Exam Date: 11/08/2021 : 1955 Gender:F Ordering : DR LONDON YODER D.O. Admission #: [id number] Family : Order #: [id number] CLICK HERE TO VIEW EXAM RADIOLOGY REPORT PROCEDURE: ULTRASOUND BREAST LEFT LIMITED COMPARISON: MG MAMM NITHYA SCRN W CAD DIG, 06/09/2014. MAMM SCREEN 3D NITHYA CAD, 09/28/2021. INDICATIONS: [...] Diaz M.D. on 11/08/2021 at 09:55 Normal [facility] MG MAMM SCREEN 3D NITHYA CADon 09-28-2021 MG MAMM SCREEN 3D NITHYA CAD Patient: JENA MERAZ Exam Date: 09/28/2021 : 1955 Gender:F Ordering : DR LONDON YODER D.O. Admission #: [id number] Family : Order #: [id number] CLICK HERE TO VIEW EXAM RADIOLOGY REPORT [...] leukemia cancer at age 78. LOCATION: [facility] BREAST COMPOSITION: Scattered areas fibroglandular [...] Diaz M.D. on 09/28/2021 at 11:12 Normal [facility] XR DEXA BONE DENSITYon 09-28 XR [...] by: FUAD DIAZ Date: 2021-09-28 14:43 Normal [facility] Vital Signs Date Time Vital Sign Value Performing Clinician Germaine ramirez 06-18-2024 10:51-0500 Body height 167.6 cm Nirali Perezoll [employer] [facility] 06-18-2024 10:51-0500 Body mass index (BMI) [Ratio] 39.06 kg/m2 Niraliamor Perezoll [employer] [facility] 06-18-2024 10:51-0500 Body weight 109.77 kg Nirali Clay [employer] Work Phone: [facility] 05-21-2024 13:33-0400 Body height 167.6 cm John Rowley DO [facility] 05-21-2024 13:33-0400 Body mass index (BMI) [Ratio] 39.16 kg/m2 John Rowley DO [facility] 05-21-2024 13:33-0400 Body weight 110.04 kg John Rowley DO Work Phone[facility] 05-21-2024 13:33-0400 Diastolic blood pressure 72 mm[Hg] John Rowley DO [facility] 05-21-2024 13:33-0400 Heart rate 81 /min John Rowley DO [facility] 05-21-2024 13:33-0400 Systolic blood pressure 127 mm[Hg] John Rowley DO Work Phone: [facility] Encounters Encounter Date Encounter Type Care Provider Facility Start: 06-18-2024 End: 06-18-2024 Postop follow up visit related to original px Nirali Clay 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 TECHNICIAN-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 Work Phone: [facility] Comment on above: Status post repair o f ventral hernia (Primary Dx) Start: 06-18-2024 End: 06-18-2024 ambulatory [facility] Start: 06-02-2024 End: 06-02-2024 Orders Only [facility] Comment on above: Ventral hernia witho ut obstruction or gangrene Start: 05-22-2024 ambulatory LONDON YODER [facility] Start: 05-21-2024 End: 05-21-2024 Office outpatient new 45 minutes John Rowley DO Work Phone: [facility] Comment on above: Ventral hernia witho ut obstruction or gangrene (Primary Dx); Severe obesity with serious comorbidity and body mass index (BMI) 120% of 95th percentile to less than 140% of 95th percentile for age in pediatric patient, unspecified obesity type ([facility]); History of hypertension; History of renal insufficiency Start: 05-21-2024 End: 05-21-2024 ambulatory JOHN ROWLEY [facility] Start: 05-11-[address] LONDON [...] DO Work Phone: Start: 09-11-2022 Colonoscopy John martin DO Work Phone: Plan of Treatment Date Care Activity Detail Author Start: 09-11-2032 Screening for malign ant neoplasm of colon Colonoscopy [facility] Start: 06-18-2025 Adult BMI Screening Adult BMI Screen ing [facility] Start: 06-18-2025 Tobacco Screening Tobacco Screening [facility] Start: 05-21-2025 Adult BMI Screening Adult BMI Screen ing [facility] Start: 05-21-2025 Tobacco Screening Tobacco Screening [facility] Start: 06-18-2024 End: 06-18-2024 Patient encounter procedure 06/18/2024 11:00 AM EST Office Visit [facility] [address] [place] [address] Nirali Clay, METAL TECHNICIAN-PREPARER [address] [place] [address] [facility] Start: 03-30-2024 Influenza vaccination Influenza Vacc ine [facility] Start: 2020 Fall Risk Screening Fall Risk Screen ing [facility] Start: 04-04-2018 Administration of varicella zoster vaccine Zoster (Shingles) Vaccine (2 of 3) [facility] Start: 1974 DTaP,Tdap and Td Vaccines (1 - Tdap) DTaP,Tdap and Td Vaccines (1 - Tdap) [facility] Start: 1973 Adult BMI Follow Up Plan Adult BMI Follow Up Plan [facility] Start: 1967 Depression Screening Depression Scre ening [facility] Start: 1955 Medicare Annual Well ness Visit Medicare Annual Wellness Visit [facility] End: 05-21-2025 CBC panel - Blood by Automated count CBC without diff Lab Routine Ventral hernia without obstruction or gangrene 1 Occurrences starting 05/21/2024 until 05/21/2025 [facility] Work Phone: Comment on above: 1 Occurrences starti ng 05/21/2024 until 05/21/2025 End: 05-21-2025 Comprehensive metabolic 2000 panel - Serum or Plasma Comprehensive metabolic panel Lab Routine Ventral hernia without obstruction or gangrene 1 Occurrences starting 05/21/2024 until 05/21/2025 [facility] Comment on above: 1 Occurrences starti ng 05/21/2024 until 05/21/2025 End: 05-21-2025 Unlisted [facility] Procedure [facility]listed [facility] Procedure Procedures Routine Ventral hernia without obstruction or gangrene 1 Occurrences starting 05/21/2024 until 05/21/2025 [facility] Comment on above: 1 Occurrences starti ng 05/21/2024 until 05/21/2025 Immunizations Immunization Date Immunization Notes Care Provider Fa celso 05-07-2023 influenza virus vaccine, unspecified formulation John Daveymario DO Work Phone: [facility] 02-07-2018 zoster vaccine, unspecified formulation John Daveymario DO Work Phone: [facility] Payers Date Payer Category Payer Medicare HMO [facility] [id number] 1959 Unknown [id number] 1955 Unknown [id number] 3 1955 Unknown [id number] 3 1955 Unknown [id number] 3 1955 Unknown [id number] 3 1955 Unknown [id number] 3 1955 Unknown [id number] 86 1955 Unknown [id number] 86 1955 Unknown [id number] 86 1955 Unknown [id number] 86 1955 Unknown [id number] 86 Social History Date Type Detail Facility Start: 05-21-2024 Tobacco smoking stat [facility] Ex-smoker [facility] Start: 07-30-2000 End: 07-30-2007 History of tobacco use Current smoker [facility] Start: 07-30-2000 End: 07-30-2007 History of tobacco use Cigarette Smoker [facility] Start: 01-08-2019 End: 05-21-2024 Cigarettes smoked current (pack per day) - Reported 1 [facility] Start: 05-21-2024 Tobacco use and exposure Smokeless tobacco non-user [facility] Start: 05-21-2024 End: 06-18-2024 Alcoholic beverage intake Ex-drinker (finding) [facility] Start: 01-08-2019 End: 05-21-2024 Tobacco use panel [facility] Childcare Unknown [facility] Start: 1955 Sex assigned at Not on file P [facility] Start: 03-04-2015 Sex Female (finding) [facility] History of Present illness Narrative 06-18-2024 Nirali Clay, MAURY-PREPARER - 06/18/2024 11:00 AM EST Note Date & Type Note Facility 06-18-2024 History of Presen t illness Narrative Images from the original note were not included. Subjective Jena Meraz is a 68 y.o. female status post robotic assisted ventral hernia repair with mesh. She is doing well and has no concerns. She denies pain other than little twinges on the right side of her abdomen with exertion. She is tolerating oral intake and having bowel function. She denies fever and chills. She is retired. ObjectiveStatus There were no vitals filed for this visit. Physical Exam Constitutional: Appearance: Normal appearance. She is not ill-appearing. Abdominal: General: There is no distension. Palpations: Abdomen is soft. Tenderness: There is no abdominal tenderness. There is no guarding. Skin: General: Skin is warm and dry. Findings: Bruising present. No erythema. Comments: Lap sites clean, dry and intact. No signs of infection. Minimal bruising. Assessment Jena Meraz is a 68 y.o.female postop ventral hernia repair. Plan Activity restrictions for 1 more month. Follow up as needed. Status post repair of ventral hernia [Z98.890, Z87.19] DENIS HARRIS [facility] [place] This note was created with the assistance of a speech recognition program. While intending to generate a timely document that accurately reflects the content of the visit, no guarantee can be provided that every grammatical or spelling mistake has been or will be identified or corrected. Thank you for your understanding. DENIS Harris 06/18/24 1100 documented in this encounter [facility] History of Present illness Narrative 05-21-2024 John Rowley DO - 05/21/2024 1:45 PM EDT Note Date & Type Note Facility 05-21-2024 History of Presen t illness Narrative Images from the original note were not included. [facility] [address] [place] [id number] CONSULT NOTE CHIEF COMPLAINT Chief Complaint Patient presents with Hernia Ventral hernia, [facility] ER 05/13/24 Jena Meraz is a 68 y.o. female who presents with complaints of a right-sided abdominal wall hernia which she was found to have on a CT scan performed at the [facility] on 05/13/2024. Patient went to the [...] creatinine of 1.34. CT scan from the [facility] as well as ED report and [...] 09/11/2022 Performed by John Rowley DO at [facility] 2008 TUBAL LIGATION 1986 SOCIAL [...] Referring and communicating with other health care management associate Ventral hernia without obstruction or gangrene [K43.9] [...] for your understanding. documented in this encounter [facility] Evaluation note Note Date & Type Note [...] & Type Note Facility Evaluation note Diagnosis Status post repair of ventral hernia- Primary Other postprocedural status documented in this encounter [facility] [...] DATE CREATED AUTHOR 05/09/2022 [facility] DATE CREATED AUTHOR AUTHOR'S ORGANIZ ATION 06/21/2024 [facility] Reason for Visit (unrecogniz ed section and content) Reason Comments Hernia Ventral hernia, [facility] 05/13/24 Reason Comments POST-OP VISIT POST OP - DAVINCI VE NTRAL HERNIA REPAIR PERFORMED 06/04/24 @ [facility] BY DR. ROWLEY Care Teams (unrecognized sec tion and content) Optometric Tech Relationship Specialty Start Date End Date London Yoder DO [address] [place] [address] PCP - General Family Medicine 04/17/22 Optometric Tech Relationship Specialty Start Date End Date London Yoder DO [address] [place] [address] PCP - General Family Medicine 04/17/22 Optometric Tech Relationship Specialty Start Date End Date London Yoder DO [address] [place] [address] (work) PCP - General Family Medicine 04/17/22 FOR [...] BE BASED ON THE PRIMARY CLINICAL RECORDS. [facility] provides no warranty or guarantee of the accuracy or completeness of information in this document.
--- NOTE | 2024-09-08 11:53 | CT_ITS ---
[address] [address] Patient Name: CAMILLA MERAZ MRN: [id number] date: 1955 Sex: F Assigned Patient Location: ER Current Patient Location: ER Accession/Order Number: [id number] Exam Date: 09/08/2024 11:51 Report Date: 09/08/2024 12:17 At the request of: ERIC MEEK Procedure: CT abdomen pelvis wo con EXAMINATION: CT abdomen pelvis wo con HISTORY: sbo r/o COMPARISON: 05/13/2024 TECHNIQUE: Axial, Coronal, and Sagittal images were created without IV contrast. Dose reduction techniques were achieved by using automated exposure control and/or adjustment of mA and/or kV according to patient size and/or use of iterative reconstruction technique. FINDINGS: LUNG BASES: Linear opacities in both lung bases, atelectasis favored LIVER: 2.5 cm hypodensity in the left hepatic lobe, a cyst is favored BILIARY: No dilatation or calcification. PANCREAS: No lesion, fluid collection, ductal dilatation, or atrophy. SPLEEN: No enlargement or focal lesion. ADRENALS: No mass or enlargement. KIDNEYS: No mass, obstruction, or calcification. BOWEL/MESENTERY: Moderate colonic diverticulosis without evidence of acute diverticulitis. Nonobstructive bowel gas pattern. The appendix is normal in size with multiple small appendicoliths AORTA/VASCULAR: No aortic aneurysm. Minimal calcific atherosclerosis RETROPERITONEUM: No mass or adenopathy. LYMPH NODES: No adenopathy. URINARY BLADDER: No visible focal wall thickening, lesion, or calculus. PELVIC ORGANS: Hysterectomy ABDOMINAL WALL: No mass or hernia. BONES: No bony lesion or fracture. Dextrocurvature with degenerative changes OTHER: Negative. CT/CT abdomen pelvis wo con IMPRESSION: No acute intraperitoneal abnormality. Electronically authenticated by: SHADY WARE Date: 09/08/2024 12:17
[2024-09-08 12:37] LABS: Bilirubin Urine MODERATE (NEGATIVE); Blood Urine NEGATIVE (NEGATIVE); Clarity Urine CLEAR (CLEAR); Color Urine DK. YELLOW (YELLOW); Glucose Urine UA NEGATIVE (NEGATIVE); Ketones Urine TRACE mg/dL (NEGATIVE); Leukocyte Esterase Urine NEGATIVE (NEGATIVE); Nitrite Urine NEGATIVE (NEGATIVE); Protein Urine TRACE mg/dL (NEG/TRACE); Specific Gravity Urine >=1.030 (1.005-1.025); pH Urine 5.5 (5.0-9.0)
[2024-09-08 12:46] LABS: Basophils Percent Auto 0.5 % (0.2-2.0); Eosinophils Absolute Auto 0.1 10^3/uL (0.0-0.7); Eosinophils Percent Auto 0.8 % (0.9-7.0); Hematocrit 48.5 % (36.0-48.0); Hemoglobin 15.7 g/dL (12.0-16.0); Immature Granulocytes Abs Auto 0.01 10^3/uL (0.00-0.03); Immature Granulocytes Pct Auto 0.2 % (0.0-0.5); Lymphocytes Absolute Auto 1.4 10^3/uL (1.2-3.8); Lymphocytes Percent Auto 23.6 % (20.5-60.0); Mean Corpuscular HGB Conc 32.4 g/dL (29.9-35.2); Mean Corpuscular Hemoglobin 28.5 pg (26.7-34.0); Mean Platelet Volume 9.3 fL (9.5-13.5); Monocytes Absolute Auto 0.3 10^3/uL (0.3-0.8); Monocytes Percent Auto 5.1 % (1.7-12.0); Neutrophils Absolute Auto 4.2 10^3/uL (1.4-6.5); Neutrophils Percent Auto 69.8 % (43.0-75.0); Platelet Count 307 10^3/uL (150-450); Red Blood Count 5.51 10^6/uL (4.20-5.40); Red Cell Distribution Width 12.8 % (11.0-15.0); White Blood Count 6.1 10^3/uL (4.0-11.0)
[2024-09-08 12:48] LABS: Bacteria Urine LARGE #/HPF (NONE SEEN); Mucus Urine LARGE (NONE SEEN); RBC Urine NONE SEEN #/HPF (0-2); Squamous Epithelial Cell Urine MANY #/LPF (NONE/RARE); WBC Urine 0-2 #/HPF (NONE SEEN)
[2024-09-08 12:49] LABS: Urine Culture Indicated YES
[2024-09-08 12:54] LABS: Alanine Aminotransferase 18 U/L (14-59); Albumin Globulin Ratio 1.1; Albumin Level 3.8 g/dL (3.4-5.0); Alkaline Phosphatase 68 U/L (46-116); Anion Gap 14.6; Aspartate Amino Transferase 16 U/L (15-37); BUN Creatinine Ratio 19.4; Bilirubin Total 0.5 mg/dL (0.2-1.0); Calcium 9.7 mg/dL (8.5-10.1); Carbon Dioxide 29.2 mmol/L (21.0-32.0); Chloride 102 mmol/L (98-107); Estimated GFR (African America 52 (>=60 mL/min/1.73m^2); Estimated GFR (Non-African Ame 43 (>=60 mL/min/1.73m^2); Globulin 3.5 g/dL; Glucose 124 mg/dL (74-106); Potassium 3.8 mmol/L (3.5-5.1); Sodium 142 mmol/L (136-145); Total Protein 7.3 g/dL (6.4-8.2)
[2024-09-08] MEDS: KETOROLAC TROMETHAMINE 30 MG/ML VIAL 15 MG IVP (13:07)
[2024-09-08 13:31] VITALS: BP 114/73; PULSE 61; O2SAT 96
--- NOTE | 2024-09-08 14:50 | ED.ABDPAIN1 ---
HPI - Abdominal Pain General Chief Complaint: Abdominal Pain Stated Complaint: ABDOMINAL PAIN Time Seen by Provider: 09/08/24 11:33 Source: patient Mode of arrival: walk-in Limitations: no limitations History of Present Illness HPI narrative: 69-year-old female is coming to the ER with almost 3 days history of abdominal pain mostly periumbilical, pain was associated with some decreased p.o. intake and constipation that she noticed for the last few days although she did have a very small bowel movement yesterday The patient is not having any nausea but she is not also eating because she does not have any appetite She is denying any other concerns mentioned that the pain is crampy-like and periumbilical Related Data Home Medications ?Medication ?Instructions ?Recorded ?Confirmed aspirin 81 mg tablet,delayed 81 mg PO DAILY 05/13/24 06/04/24 release (Adult Aspirin Regimen) chlorthalidone 25 mg tablet 25 mg PO DAILY 05/13/24 06/04/24 lisinopril 40 mg tablet 40 mg PO DAILY 05/13/24 06/04/24 omeprazole 40 mg capsule,delayed 40 mg PO DAILY 05/13/24 06/04/24 release simvastatin 20 mg tablet 20 mg PO DAILY 05/13/24 06/04/24 multivitamin (Daily Multi-Vitamin 1 tab PO DAILY 05/30/24 06/04/24 tablet) zolpidem 10 mg tablet 10 mg PO DAILY 05/30/24 06/04/24 Previous Rx's ?Medication ?Instructions ?Recorded ibuprofen 800 mg tablet 800 mg PO Q8H PRN pain #20 tabs 06/04/24 oxycodone-acetaminophen 5 mg-325 1 tab PO Q6H PRN pain #10 tabs 06/04/24 mg tablet (Percocet) bisacodyl 5 mg tablet,delayed 5 mg PO DAILY PRN constipation #10 09/08/24 release (Dulcolax (bisacodyl)) tabs Allergies Allergy/AdvReac Type Severity Reaction Status Date / Time No Known Drug Allergies Allergy Verified 09/08/24 11:21 Review of Systems ROS Status of ROS 10 or more systems reviewed and unremarkable except as noted in history and below [facility] Medical History (Updated 09/08/24 @ 13:40 by Daniela Denny MD) Kidney stones ?N20.0 - Calculus of kidney (ICD-10) Chronic kidney disease ?N18.9 - Chronic kidney disease, unspecified (ICD-10) Ventral hernia ?K43.9 - Ventral hernia without obstruction or gangrene (ICD-10) GERD (gastroesophageal reflux disease) ?K21.9 - Gastro-esophageal reflux disease without esophagitis (ICD-10) High cholesterol ?E78.00 - Pure hypercholesterolemia, unspecified (ICD-10) Hypertension ?I10 - Essential (primary) hypertension (ICD-10) Surgical History (Updated 05/30/24 @ 13:56 by Jessica Johnston NP) History of tubal ligation ?Z98.51 - Tubal ligation status (ICD-10) History of hysterectomy ?Z90.710 - Acquired absence of both cervix and uterus (ICD-10) History of colonoscopy ?Z98.890 - Other specified postprocedural states (ICD-10) Family History (Updated 05/30/24 @ 13:56 by Jessica Johnston NP) Other Cancer Family history of diabetes mellitus Family history of hypertension Family history of kidney cancer Family history of myocardial infarction Social History (Updated 05/30/24 @ 13:51 by Jessica Johnston NP) Within the past year, how often did you have a drink containing alcohol: never Score interpretation: A score less than 3 is consistent with normal alcohol consumption. Smoking status: Former smoker Non-prescribed substance use: denies use Previous occupational history: Retired Highest level of school completed/degree received: high school graduate Little interest or pleasure in doing things: not at all Feeling down, depressed, or hopeless: not at all Exam Narrative Exam Narrative: Nurses notes and vital signs reviewed and patient is not hypoxic. General: Well-appearing and in no apparent distress. Skin: Warm, dry, no pallor noted. No rash. Head: Normocephalic, atraumatic. Neck: Supple, non-tender. Eye: Pupils are equal, round and EOMI. No scleral icterus. Ears, Nose, Mouth, and Throat: TM are clear, no nasal mucosal hypertrophy. Oral mucosa is moist, no posterior oropharynx erythema, uvula is mid-line Cardiovascular: Regular Rate and Rhythm without murmur, gallop or rub. Respiratory: No accessory muscle use or respiratory distress. Lungs are clear to auscultation, no wheezing, rales or rhonchi Chest Wall: no tenderness Back: No midline thoracic or lumbar vertebral tenderness. No CVA tenderness Musculoskeletal: normal ROM, no calf or popliteal tenderness, no lower extremity edema/swelling GI: Abdomen is soft, non-distended. There is a periumbilical tenderness that is subjective but there is no right upper quadrant tenderness or any lower abdominal tenderness noted on examination, negative [place] Constitutional Vital Signs, click to edit/add: Last Vital Signs Temp 97.6 F 09/08/24 11:21 Pulse 61 09/08/24 13:31 Resp 18 09/08/24 13:31 BP 114/73 09/08/24 13:31 Pulse Ox 96 09/08/24 13:31 O2 Del Method Room Air 09/08/24 11:21 Course Vital Signs Vital signs: Vital Signs Temperature 97.6 F 09/08/24 11:21 Pulse Rate 78 09/08/24 11:21 Respiratory Rate 20 09/08/24 11:21 Blood Pressure 125/73 09/08/24 11:21 Pulse Oximetry 96 09/08/24 11:21 Oxygen Delivery Method Room Air 09/08/24 11:21 Temperature 97.6 F 09/08/24 11:21 Pulse Rate 61 09/08/24 13:31 Respiratory Rate 18 09/08/24 13:31 Blood Pressure 114/73 09/08/24 13:31 Pulse Oximetry 96 09/08/24 13:31 Oxygen Delivery Method Room Air 09/08/24 11:21 MDM - Abdominal Pain MDM Narrative Medical decision making narrative: The patient CBC and chemistry showed no acute significant pathology She did had a CAT scan here in the ER that showed no acute pathology as well, although I did notice that the patient appendix shows appendicolith, on multiple evaluation of the patient's right lower quadrant there was no tenderness at the tenderness only at the periumbilical area CBC and chemistry showed no acute infection the patient urinalysis as well showed no acute pathology The patient was provided with Toradol here 1 time before getting discharge and she was instructed about management of her constipation at home in addition to possibility that she could be having a viral illness that is causing her to have a decreased appetite and abdominal pain She mentioned that the pain mostly is crampy and that could goes with a possible viral infection I did explain to her that right now this could be the beginning of pathology and that why she need to monitor herself in case of any pain increasing or any other concerns she is to come back to the ER The patient is to follow up with primary care physician in next 2-3 days or to return to the emergency department should any of the signs or symptoms worsen or new symptoms develop. The patient agrees with the following Diagnosis and Treatment plan and the patient will be discharged home. Lab Data Labs: Lab Results 09/08/24 Range/Units 12:14 WBC 6.1 (4.0-11.0) 10^3/uL RBC 5.51 H (4.20-5.40) 10^6/uL Hgb 15.7 (12.0-16.0) g/dL Hct 48.5 H (36.0-48.0) % MCV 88.0 (81.0-99.0) fL MCH 28.5 (26.7-34.0) pg MCHC 32.4 (29.9-35.2) g/dL RDW 12.8 (11.0-15.0) % Plt Count 307 (150-450) 10^3/uL MPV 9.3 L (9.5-13.5) fL Neut % (Auto) 69.8 (43.0-75.0) % Lymph % (Auto) 23.6 (20.5-60.0) % [place] % (Auto) 5.1 (1.7-12.0) % Eos % (Auto) 0.8 L (0.9-7.0) % Baso % (Auto) 0.5 (0.2-2.0) % Neut # (Auto) 4.2 (1.4-6.5) 10^3/uL Lymph # (Auto) 1.4 (1.2-3.8) 10^3/uL [place] # (Auto) 0.3 (0.3-0.8) 10^3/uL Eos # (Auto) 0.1 (0.0-0.7) 10^3/uL Baso # (Auto) 0.0 (0.0-0.1) 10^3/uL Abs Immat Gran (auto) 0.01 (0.00-0.03) 10^3/uL Imm/Tot Granulo (auto) 0.2 (0.0-0.5) % Sodium 142 (136-145) mmol/L Potassium 3.8 (3.5-5.1) mmol/L Chloride 102 (98-107) mmol/L Carbon Dioxide 29.2 (21.0-32.0) mmol/L Anion Gap 14.6 BUN 24.0 H (7.0-18.0) mg/dL Creatinine 1.24 H (0.55-1.02) mg/dL Est GFR ( Amer) 52 L (>=60 mL/min/1.73m^2) Est GFR (Non-Af Amer) 43 L (>=60 mL/min/1.73m^2) BUN/Creatinine Ratio 19.4 Glucose 124 H (74-106) mg/dL Calcium 9.7 (8.5-10.1) mg/dL Total Bilirubin 0.5 (0.2-1.0) mg/dL AST 16 (15-37) U/L ALT 18 (14-59) U/L Alkaline Phosphatase 68 (46-116) U/L Total Protein 7.3 (6.4-8.2) g/dL Albumin 3.8 (3.4-5.0) g/dL Globulin 3.5 g/dL Albumin/Globulin Ratio 1.1 Urine Color Dk. yellow (YELLOW) Urine Clarity Clear (CLEAR) Urine pH 5.5 (5.0-9.0) Ur Specific [place] >=1.030 A (1.005-1.025) Urine Protein Trace (NEG/TRACE) mg/dL Urine Glucose (UA) Negative (NEGATIVE) mg/dL Urine Ketones Trace A (NEGATIVE) mg/dL Urine Occult Blood Negative (NEGATIVE) Urine Nitrite Negative (NEGATIVE) Urine Bilirubin Moderate A (NEGATIVE) Urine Urobilinogen 1.0 (0.2-1.0) EU/dL Ur Leukocyte Esterase Negative (NEGATIVE) Urine RBC None seen (0-2) #/HPF Urine WBC 0-2 A (NONE SEEN) #/HPF Ur Squamous Epith Cells Many A (NONE/RARE) #/LPF Urine Bacteria Large A (NONE SEEN) #/HPF Urine Mucus Large A (NONE SEEN) Ur Culture Indicated? Yes Discharge Plan Discharge Chief Complaint: Abdominal Pain Clinical Impression: Abdominal pain, Constipation Patient Disposition: Home, Self-Care Time of Disposition Decision: 13:39 Condition: Good Prescriptions / Home Meds: New bisacodyl [Dulcolax (bisacodyl)] 5 mg tablet,delayed release (DR/EC) 5 mg PO DAILY PRN (Reason: constipation) Qty: 10 0RF No Action chlorthalidone 25 mg tablet 25 mg PO DAILY omeprazole 40 mg capsule,delayed release(DR/EC) 40 mg PO DAILY simvastatin 20 mg tablet 20 mg PO DAILY lisinopril 40 mg tablet 40 mg PO DAILY aspirin [Adult Aspirin Regimen] 81 mg tablet,delayed release (DR/EC) 81 mg PO DAILY zolpidem 10 mg tablet 10 mg PO DAILY multivitamin [Daily Multi-Vitamin] Tablet 1 tab PO DAILY ibuprofen 800 mg tablet 800 mg PO Q8H PRN (Reason: pain) Qty: 20 0RF oxycodone-acetaminophen [Percocet] 5-325 mg tablet 1 tab PO Q6H PRN (Reason: pain) Qty: 10 0RF Print Language: Bangladeshi Instructions: Constipation (DC), Abdominal Pain (ED) Referrals: PRAVEEN YODER DO [Primary Care Provider] - 1 week Discharge Date/Time: 09/08/24 14:03
== END 2024-09-08 14:03 | disposition home or self-care (01) ==
PROVIDERS: Emergency Provider Emergency Medicine; PCP Family Medicine
DX: K59.00 Constipation, unspecified (principal); R10.9 Unspecified abdominal pain; Z90.710 Acquired absence of both cervix and uterus; Z98.51 Tubal ligation status; Z87.891 Personal history of nicotine dependence
CPT/HCPCS: 36415; 74176; 80053; 81001; 85025; 87086; 96374; 99284; J1885

== ENCOUNTER 2024-12-17 07:12 | Outpatient (OUT) | payer MEDICARE, SELFPAY ==
--- OUTSIDE RECORDS SUMMARY | 2024-12-17 07:16 | XMS_ITS | CCD ---
Author Organization [facility] Care Team Providers Care Trimmer Climber Name Role Phone PARESH, DR LONDON Weaver [...] Unavailable YODER, DR LONDON Weaver Consulting Unavailable JOHN ROWLEY Attending Unavailable YODER, LONDON Weaver Referring Unavailable YODER, LONDON Weaver Primary Care Unavailable YODER, LONDON Weaver Referring Unavailable YODER, LONDON Weaver Primary Care Unavailable YODER, LONDON Weaver Referring Unavailable YODER, LONDON Weaver Primary Care Unavailable NIRALI CLAY Attending Unavailable YODER, LONDON Weaver Referring Unavailable YODER, LONDON Weaver Primary Care Unavailable Yoder London SALDIVAR Primary Care Provider [phone] Yoder London SALDIVAR Primary Care Provider [phone] Medications Current Medications Medication Drug Class(es) Dates Sig (Normalized) Sig (Original) aspirin 81 mg delayed release oral tablet (4 sources) Platelet Aggregation Inhibitor, Nonsteroidal Anti-inflammatory Drug take 1 tablet by mouth in the morning aspirin 81 mg Take 1 tablet (81 mg total) by mouth in the morning. Active chlorthalidone 25 mg oral tablet (4 sources) Thiazide-like Diuretic Start: 04-29-2022 take 1 tablet by mouth once daily chlorthalidone (HYGROTON) 25 mg tablet Take 1 tablet (25 mg total) by mouth daily. 04/29/2022 Active lisinopril 40 mg oral tablet (4 sources) Angiotensin Converting Enzyme Inhibitor Start: 04-29-2022 take 1 tablet by mouth in the morning lisinopriL (PRINIVIL,ZESTRIL) 40 mg tablet Take 1 tablet (40 mg total) by mouth in the morning. 04/29/2022 Active MULTIVITAMIN ORAL (4 sources) MULTIVITAMIN ORA L Take by mouth daily. Active omeprazole 40 mg delayed release oral capsule (4 sources) Proton Pump Inhibitor Start: 04-29-2022 take 1 capsule by mouth in the morning omeprazole (PriLOSEC) 40 mg capsule Take 1 capsule (40 mg total) by mouth in the morning. 04/29/2022 Active simvastatin 20 mg oral tablet (4 sources) HMG-CoA Reductase Inhibitor Start: 04-29-2022 take 1 tablet by mouth in the morning simvastatin (ZOCOR) 20 mg tablet Take 1 tablet (20 mg total) by mouth in the morning. 04/29/2022 Active zolpidem tartrate 5 mg oral tablet (4 sources) gamma-Aminobutyric Acid-ergic Agonist take 1 tablet by mouth once daily as needed for sleep zolpidem (AMBIEN) 5 mg tablet Take 1 tablet (5 mg total) by mouth nightly as needed for sleep. Active Problems Active Problems Problem Classification Problem Date Documented Da te Episodic/Chronic Abdominal hernia (5 sources) Ventral hernia without obstruction or gangrene; Translations: [Hernia of abdominal cavity] Onset: 05-21-2024 05-21-2024 Episodic Abdominal pain (4 sources) Unspecified abdominal pain; Translations: [UNSPECIFIED ABDOMINAL PAIN] Onset: 04-22-2022 Episodic Diabetes mellitus with complications (4 sources) Type 2 diabetes mellitus with diabetic chronic kidney disease; Translations: [TYPE 2 DM W/DIABETIC CKD] Onset: 01-31-2022 Chronic Disorders of lipid metabolism (1 source) Mixed hyperlipidemia; Translations: [MIXED HYPERLIPIDEMIA] Onset: 02-03-2022 Chronic Genitourinary symptoms and ill-defined conditions (2 sources) Personal history of other diseases of urinary system; Translations: [History of renal insufficiency] Onset: 05-21-2024 05-21-2024 Episodic Nausea and vomiting (1 source) Nausea; Translations: [NAUSEA] Onset: 04-25-2022 Episodic Other aftercare (1 source) 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; Translations: [CARE HOME CURRENT USE OF ASPIRIN] Onset: 04-25-2022 Episodic Other aftercare (1 source) Other half-way (current) drug therapy; Translations: [OTH CARE HOME CURRENT DRUG THERAPY] Onset: 04-25-2022 Episodic Other circulatory disease (1 source) Personal [...] due to excess calories] Onset: 05-21-2024 Chronic Other nutritional; endocrine; and metabolic disorders (1 source) Severe obesity; Translations: [Morbid (severe) obesity due to excess calories] 05-21-2024 Chronic Residual codes; unclassified (1 source) Other specified [...] Other Problems Problem Classification Problem Date Documented Date Episodic/Chronic Other circulatory disease (1 source) H/O: hypertension; Translations: [Personal history of other diseases of the circulatory system] 05-21-2024 Episodic Other screening for suspected conditions (not mental [...] [FAMILY HISTORY OF LEUKEMIA] Onset: 09-30-2021 Episodic Residual codes; unclassified (1 source) History of hernia repair; Translations: [Other specified postprocedural states] 06-18-2024 Episodic Results Test Name Value Interpretation Reference Range Facil ity Comprehensive metabolic pane eleni 05-30-2024 External Anion Gap 12.9 [facility] External Blood Urea Nitrogen Bun 33 [facility] External Calcium Ca 9.5 [facility] External Chloride 105 [facility] External Co2 / Carbon Dioxide 29.4 [facility] External Creatinine 1.29 [facility] External Gfr Amer 50 [facility] External Gfr Non Amer 41 [facility] External Glucose Fasting Or Random (Fbs) 122 [facility] External Potassium K 4.3 [facility] External Sodium Na 143 [facility] CBC AUTO DIFFon 04-22-2022 BASO # 0.0 103/ul Normal 0.0-0.1 [facility] Comment on above: Performed By: #### C BC #### [facility] [address] [place] [address] Dr. Ruddy Oswald Basophils/100 WBC (Bld) 0.7 % Normal 0.2-2.0 [facility] Comment on above: Performed By: #### C BC #### [facility] [address] [place] [address] Dr. Ruddy Oswald EO # 0.1 103/ul Normal 0.0-0.7 [facility] Comment on above: Performed By: #### C BC #### [facility] [address] [place] [address] Dr. Ruddy Oswald Eosinophils/100 WBC (Bld) 1.4 % Normal 0.9-7.0 [facility] Comment on above: Performed By: #### C BC #### [facility] [address] [place] [address] Dr. Ruddy Oswald Erythrocyte distribution width (RBC) [Ratio] 14.6 % Normal 11.0-15.0 [facility] Comment on above: Performed By: #### C BC #### [facility] [address] [place] [address] Dr. Ruddy Oswald Hematocrit (Bld) [Volume fraction] 40.2 % Normal 36.0-48.0 [facility] Comment on above: Performed By: #### C BC #### [facility] [address] [place] [address] Dr. Ruddy Oswald Hemoglobin (Bld) [Mass/Vol] 12.6 g/dL Normal 12.0-16.0 [facility] Comment on above: Performed By: #### C BC #### [facility] [address] [place] [address] Dr. Ruddy Oswald IG # 0.01 10e3/ul Normal 0.00-0.03 [facility] Comment on above: Performed By: #### C BC #### [facility] [address] [place] [address] Dr. Ruddy Oswald IG % 0.2 % Normal 0.0-0.5 [facility] Comment on above: Performed By: #### C BC #### [facility] [address] [place] [address] Dr. Ruddy Oswald LYMPH # 1.5 103/ul Normal 1.2-3.8 [facility] Comment on above: Performed By: #### C BC #### [facility] [address] [place] [address] Dr. Ruddy Oswald Lymphocytes/100 WBC (Bld) 32.8 % Normal 20.5-60.0 [facility] Comment on above: Performed By: #### C BC #### [facility] [address] [place] [address] Dr. Ruddy Oswald MANUAL DIFF REQ NO Normal [facility] Comment on above: Performed By: #### C BC #### [facility] [address] [place] [address] Dr. Ruddy Oswald MCH (RBC) [Entitic mass] 26.7 pg Normal 26.7-34.0 [facility] Comment on above: Performed By: #### C BC #### [facility] [address] [place] [address] Dr. Ruddy Oswald MCHC (RBC) [Mass/Vol] 31.3 g/dL Normal 29.9-35.2 [facility] Comment on above: Performed By: #### C BC #### [facility] [address] [place] [address] Dr. Ruddy Oswald MCV (RBC) [Entitic vol] 85.2 fL Normal 81.0-99.0 [facility] Comment on above: Performed By: #### C BC #### [facility] [address] [place] [address] Dr. Ruddy Oswald MONO # 0.4 103/ul Normal 0.3-0.8 [facility] Comment on above: Performed By: #### C BC #### [facility] [address] [place] [address] Dr. Ruddy Oswald Monocytes/100 WBC (Bld) 8.6 % Normal 1.7-12.0 [facility] Comment on above: Performed By: #### C BC #### [facility] [address] [place] [address] Dr. Ruddy Oswald NEUT # 2.5 103/ul Normal 1.4-6.5 [facility] Comment on above: Performed By: #### C BC #### [facility] [address] [place] [address] Dr. Ruddy Oswald Neutrophils/100 WBC (Bld) 56.3 % Normal 43.0-75.0 [facility] Comment on above: Performed By: #### C BC #### [facility] [address] [address] [address] Ruddy Oswald Platelet mean volume (Bld) [Entitic vol] 9.4 fL Critically low 9.5-13.5 [facility] Comment on above: Performed By: #### C BC #### [facility] [address] [address] [address] Ruddy Oswald PLT 269 103/ul Normal 150-450 [facility] Comment on above: Performed By: #### C BC #### [facility] [address] [address] [address] Ruddy Oswald RBC 4.72 106/ul Normal 4.20-5.40 [facility] Comment on above: Performed By: #### C BC #### [facility] [address] [address] [address] Ruddy Oswald WBC 4.4 103/ul Normal 4.0-11.0 [facility] Comment on above: Performed By: #### C BC #### [facility] [address] ABD/PELVIS WO CONon [...] Date: 2022-04-22 12:27 Normal [facility] PROF 14(COMP METB)on 04-22- 022 Albumin [Mass/Vol] 3.9 g/dL Normal 3.4-5.0 [facility] Comment on above: Performed By: #### C MP #### [facility] [address] [address] [address] Ruddy Oswald Albumin/Globulin [Mass ratio] 1.2 {ratio} Normal [facility] Comment on above: Performed By: #### C MP #### [facility] [address] [address] [address] Ruddy Oswald ALP [Catalytic activity/Vol] 53 U/L Normal 46-116 [facility] Comment on above: Performed By: #### C MP #### [facility] [address] [address] [address] Ruddy Oswald ALT [Catalytic activity/Vol] 20 U/L Normal 14-59 [facility] Comment on above: Performed By: #### C MP #### [facility] [address] [address] [address] Ruddy Oswald Anion gap [Moles/Vol] 9.1 mmol/L Normal [facility] Comment on above: Performed By: #### C MP #### [facility] [address] [address] [address] Ruddy Oswald AST [Catalytic activity/Vol] 13 U/L Critically low 15-37 [facility] Comment on above: Performed By: #### C MP #### [facility] [address] [address] [address] Ruddy Oswald Bilirubin [Mass/Vol] 0.4 mg/dL Normal 0.2-1.0 [facility] Comment on above: Performed By: #### C MP #### [facility] [address] [address] [address] Ruddy Oswald Calcium [Mass/Vol] 9.3 mg/dL Normal 8.5-10.1 [facility] Comment on above: Performed By: #### C MP #### [facility] [address] [address] [address] Ruddy Oswald Chloride [Moles/Vol] 104 mmol/L Normal 98-107 [facility] Comment on above: Performed By: #### C MP #### [facility] [address] [address] [address] Ruddy Oswald CO2 [Moles/Vol] 29.9 mmol/L Normal 21.0-32.0 [facility] Comment on above: Performed By: #### C MP #### [facility] [address] [address] [address] Ruddy Oswald Creatinine [Mass/Vol] 1.21 mg/dL Critically high 0.55-1.02 [facility] Comment on above: Performed By: #### C MP #### [facility] [address] [address] [address] Ruddy Oswald EGFR-AF GRENADIAN 54 mL/min/1.73m2 Critically low >=60 [facility] Comment on above: Performed By: #### C MP #### [facility] [address] [address] [address] Ruddy Oswald EGFR-NON AF GRENADIAN 45 mL/min/1.73m2 Critically low >=60 [facility] Comment on above: Performed By: #### C MP #### [facility] [address] [address] [address] Ruddy Oswald Globulin (S) [Mass/Vol] 3.3 g/dL Normal [facility] Comment on above: Performed By: #### C MP #### [facility] [address] [address] [address] Ruddy Oswald Glucose [Mass/Vol] 121 mg/dL Critically high 74-106 [facility] Comment on above: Performed By: #### C MP #### [facility] [address] [address] [address] Ruddy Oswald Potassium [Moles/Vol] 4.0 mmol/L Normal 3.5-5.1 [facility] Comment on above: Performed By: #### C MP #### [facility] [address] [place] [address] Dr. Ruddy Oswald Protein [Mass/Vol] 7.2 g/dL Normal 6.4-8.2 [facility] Comment on above: Performed By: #### C MP #### [facility] [address] [place] [address] Dr. Ruddy Oswald Sodium [Moles/Vol] 139 mmol/L Normal 136-145 [facility] Comment on above: Performed By: #### C MP #### [facility] [address] [place] [address] Dr. Ruddy Oswald Urea nitrogen [Mass/Vol] 40.0 mg/dL Critically high 7.0-18.0 [facility] Comment on above: Performed By: #### C MP #### [facility] [address] [place] [address] Dr. Ruddy Oswald Urea nitrogen/Creatinine [Mass ratio] 33.1 mg/mg Normal [facility] Comment on above: Performed By: #### C MP #### [facility] [address] [place] [address] Dr. Ruddy Oswald CBC AUTO DIFFon 01-31-2022 BASO # 0.0 103/ul Normal 0.0-0.1 [facility] Comment on above: Performed By: #### C BC #### [facility] [address] [place] [address] Dr. Ruddy Oswald Basophils/100 WBC (Bld) 0.7 % Normal 0.2-2.0 [facility] Comment on above: Performed By: #### C BC #### [facility] [address] [place] [address] Dr. Ruddy Oswald EO # 0.1 103/ul Normal 0.0-0.7 [facility] Comment on above: Performed By: #### C BC #### [facility] [address] [place] [address] Dr. Ruddy Oswald Eosinophils/100 WBC (Bld) 2.4 % Normal 0.9-7.0 [facility] Comment on above: Performed By: #### C BC #### [facility] [address] [place] [address] Dr. Ruddy Oswald Erythrocyte distribution width (RBC) [Ratio] 13.8 % Normal 11.0-15.0 [facility] Comment on above: Performed By: #### C BC #### [facility] [address] [place] [address] Dr. Ruddy Oswald Hematocrit (Bld) [Volume fraction] 39.0 % Normal 36.0-48.0 [facility] Comment on above: Performed By: #### C BC #### [facility] [address] [place] [address] Dr. Ruddy Oswald Hemoglobin (Bld) [Mass/Vol] 11.8 g/dL Critically low 12.0-16.0 [facility] Comment on above: Performed By: #### C BC #### [facility] [address] [place] [address] Dr. Ruddy Oswald IG # 0.01 10e3/ul Normal 0.00-0.03 [facility] Comment on above: Performed By: #### C BC #### [facility] [address] [place] [address] Dr. Ruddy Oswald IG % 0.2 % Normal 0.0-0.5 [facility] Comment on above: Performed By: #### C BC #### [facility] [address] [place] [address] Dr. Ruddy Oswald LYMPH # 1.5 103/ul Normal 1.2-3.8 [facility] Comment on above: Performed By: #### C BC #### [facility] [address] [place] [address] Dr. Ruddy Oswald Lymphocytes/100 WBC (Bld) 35.6 % Normal 20.5-60.0 [facility] Comment on above: Performed By: #### C BC #### [facility] [address] [place] [address] Dr. Ruddy Oswald MANUAL DIFF REQ NO Normal [facility] Comment on above: Performed By: #### C BC #### [facility] [address] [place] [address] Dr. Ruddy Oswald MCH (RBC) [Entitic mass] 26.1 pg Critically low 26.7-34.0 [facility] Comment on above: Performed By: #### C BC #### [facility] [address] [place] [address] Dr. Ruddy Oswald MCHC (RBC) [Mass/Vol] 30.3 g/dL Normal 29.9-35.2 [facility] Comment on above: Performed By: #### C BC #### [facility] [address] [place] [address] Dr. Ruddy Oswald MCV (RBC) [Entitic vol] 86.3 fL Normal 81.0-99.0 [facility] Comment on above: Performed By: #### C BC #### [facility] [address] [place] [address] Dr. Ruddy Oswald MONO # 0.3 103/ul Normal 0.3-0.8 [facility] Comment on above: Performed By: #### C BC #### [facility] [address] [place] [address] Dr. Ruddy Oswald Monocytes/100 WBC (Bld) 6.7 % Normal 1.7-12.0 [facility] Comment on above: Performed By: #### C BC #### [facility] [address] [place] [address] Dr. Ruddy Oswald NEUT # 2.3 103/ul Normal 1.4-6.5 [facility] Comment on above: Performed By: #### C BC #### [facility] [address] [place] [address] Dr. Ruddy Oswald Neutrophils/100 WBC (Bld) 54.4 % Normal 43.0-75.0 [facility] Comment on above: Performed By: #### C BC #### [facility] [address] [place] [address] Dr. Ruddy Osawld Platelet mean volume (Bld) [Entitic vol] 9.7 fL Normal 9.5-13.5 [facility] Comment on above: Performed By: #### C BC #### [facility] [address] [place] [address] Dr. Ruddy Oswald PLT 318 103/ul Normal 150-450 [facility] Comment on above: Performed By: #### C BC #### [facility] [address] [place] [address] Dr. Ruddy Oswald RBC 4.52 106/ul Normal 4.20-5.40 [facility] Comment on above: Performed By: #### C BC #### [facility] [address] [place] [address] Dr. Ruddy Oswald WBC 4.2 103/ul Normal 4.0-11.0 [facility] Comment on above: Performed By: #### C BC #### [facility] [address] [place] [address] Dr. Ruddy Oswald LIPID PROFILEon 01-31-2022 CHOL-HDL RATIO NORM SEE BELOW Normal [facility] Comment on above: Result Comment: 3.3 - 4.4 LOW RISK 4.4 - 7.1 AVERAGE RISK 7.1 - 11.0 MODERATE RISK >11.0 HIGH RISK Performed By: #### L IPID, CMP #### [facility] [address] [place] [address] Dr. Ruddy Oswald Cholesterol [Mass/Vol] 192 mg/dL Normal <=200 [facility] Comment on above: Performed By: #### L IPID, CMP #### [facility] [address] [place] [address] Dr. Ruddy Oswald Cholesterol in HDL [Mass/Vol] 60 mg/dL Normal 40-60 [facility] Comment on above: Performed By: #### L IPID, CMP #### [facility] [address] [place] [address] Dr. Ruddy Oswald Cholesterol in LDL [Mass/Vol] 109.0 mg/dL Normal [facility] Comment on above: Performed By: #### L IPID, CMP #### [facility] [address] [address] [address] Ruddy Oswald Cholesterol.total/C holesterol in HDL [Mass ratio] 3.2 {ratio} Normal [facility] Comment on above: Performed By: #### L IPID, CMP #### [facility] [address] [address] [address] Ruddy Oswald HDL NORMAL > or = 60 mg/dl - LO W CARDIOVASCULAR RISK <40 mg/dl - HIGH CARDIOVASCULAR RISK Normal [facility] Comment on above: Performed By: #### L IPID, CMP #### [facility] [address] [place] [address] Dr. Ruddy Oswald LDL CALC NORMAL SEE BELOW Normal [facility] Comment on above: Result Comment: <100 mg/dl OPTIMAL 100 - 129 mg/dl NEAR OR ABOVE OPTIMAL 130 - 159 mg/dl BORDERLINE HIGH 160 - 189 mg/dl HIGH >190 mg/dl VERY HIGH Performed By: #### L IPID, CMP #### [facility] [address] [place] [address] Dr. Ruddy Oswald Triglyceride [Mass/Vol] 115 mg/dL Normal <=150 [facility] Comment on above: Performed By: #### L IPID, CMP #### [facility] [address] [place] [address] Dr. Ruddy Oswald VLDL CALC 23.0 mg/dL Normal [facility] Comment on above: Performed By: #### L IPID, CMP #### [facility] [address] [place] [address] Dr. Ruddy Oswald MICROALBUMIN, RAND URon 07-0 mALB <1.3 Normal <=30.0 [facility] Comment on above: Performed By: #### M ALBR #### [facility] [address] [place] [address] Dr. Ruddy Oswald PROF 14(COMP METB)on 022 Albumin [Mass/Vol] 3.6 g/dL Normal 3.4-5.0 [facility] Comment on above: Performed By: #### L IPID, CMP #### [facility] [address] [address] [address] Ruddy Oswald Albumin/Globulin [Mass ratio] 1.1 {ratio} Normal [facility] Comment on above: Performed By: #### L IPID, CMP #### [facility] [address] [address] [address] Ruddy Oswald ALP [Catalytic activity/Vol] 57 U/L Normal 46-116 [facility] Comment on above: Performed By: #### L IPID, CMP #### [facility] [address] [address] [address] Ruddy Oswald ALT [Catalytic activity/Vol] 23 U/L Normal 14-59 [facility] Comment on above: Performed By: #### L IPID, CMP #### [facility] [address] [place] [address] Dr. Ruddy Oswald Anion gap [Moles/Vol] 11.0 mmol/L Normal [facility] Comment on above: Performed By: #### L IPID, CMP #### [facility] [address] [place] [address] Dr. Ruddy Oswald AST [Catalytic activity/Vol] 15 U/L Normal 15-37 [facility] Comment on above: Performed By: #### L IPID, CMP #### [facility] [address] [place] [address] Dr. Ruddy Oswald Bilirubin [Mass/Vol] 0.3 mg/dL Normal 0.2-1.0 [facility] Comment on above: Performed By: #### L IPID, CMP #### [facility] [address] [place] [address] Dr. Ruddy Oswald Calcium [Mass/Vol] 9.1 mg/dL Normal 8.5-10.1 [facility] Comment on above: Performed By: #### L IPID, CMP #### [facility] [address] [place] [address] Dr. Ruddy Oswald Chloride [Moles/Vol] 106 mmol/L Normal 98-107 [facility] Comment on above: Performed By: #### L IPID, CMP #### [facility] [address] [address] [address] Ruddy Oswald CO2 [Moles/Vol] 30.0 mmol/L Normal 21.0-32.0 [facility] [facility] Comment on above: Performed By: #### L IPID, CMP #### [facility] [address] [address] [address] Ruddy Oswald Creatinine [Mass/Vol] 0.98 mg/dL Normal 0.55-1.02 [facility] Comment on above: Performed By: #### L IPID, CMP #### [facility] [address] [address] [address] Ruddy Oswald EGFR-AF GRENADIAN >60 Normal >=60 [facility] Comment on above: Performed By: #### L IPID, CMP #### [facility] [address] [address] [address] Ruddy Oswald EGFR-NON AF GRENADIAN 57 mL/min/1.73m2 Critically low >=60 [facility] Comment on above: Performed By: #### L IPID, CMP #### [facility] [address] [address] [address] Ruddy Oswald Globulin (S) [Mass/Vol] 3.4 g/dL Normal [facility] Comment on above: Performed By: #### L IPID, CMP #### [facility] [address] [address] [address] Ruddy Oswald Glucose [Mass/Vol] 121 mg/dL Critically high 74-106 [facility] Comment on above: Performed By: #### L IPID, CMP #### [facility] [address] [address] [address] Ruddy Oswald Potassium [Moles/Vol] 5.0 mmol/L Normal 3.5-5.1 [facility] Comment on above: Performed By: #### L IPID, CMP #### [facility] [address] [address] [address] Ruddy Oswald Protein [Mass/Vol] 7.0 g/dL Normal 6.4-8.2 [facility] Comment on above: Performed By: #### L IPID, CMP #### [facility] [address] [address] [address] Ruddy Oswald Sodium [Moles/Vol] 142 mmol/L Normal 136-145 [facility] Comment on above: Performed By: #### L IPID, CMP #### [facility] [address] [address] [address] Ruddy Oswald Urea nitrogen [Mass/Vol] 30.0 mg/dL Critically high 7.0-18.0 [facility] Comment on above: Performed By: #### L IPID, CMP #### [facility] [address] [address] [address] Ruddy Oswald Urea nitrogen/Creatinine [Mass ratio] 30.6 mg/mg Normal [facility] Comment on above: Performed By: #### L IPID, CMP #### [facility] [address] [address] [address] Ruddy Oswald US BREAST LEFT LIMITEDon US BREAST LEFT LIMITED Patient: JENA MERAZ Exam Date: 11/08/2021 : 1955 Gender:F Ordering : DR LONDON YODER D.O. Admission #: [id number] Family : Order #: [id number] CLICK HERE TO VIEW EXAM RADIOLOGY REPORT [...] Diaz M.D. on 11/08/2021 at 09:55 Normal [facility] MG MAMM SCREEN 3D NITHYA CADon 09-28-2021 MG MAMM SCREEN 3D NITHYA CAD Patient: JENA MERAZ Exam Date: 09/28/2021 : 1955 Gender:F Ordering : DR LONDON YODER D.O. Admission #: [id number] Family : Order #: [id number] CLICK HERE TO VIEW EXAM RADIOLOGY REPORT [...] at age 78. LOCATION: [facility] BREAST COMPOSITION: Scattered areas fibroglandular density. [...] Diaz M.D. on 09/28/2021 at 11:12 Normal [facility] XR DEXA BONE DENSITYon 09-28 XR DEXA [...] by: FUAD DIAZ Date: 2021-09-28 14:43 Normal [facility] Vital Signs Date Time Vital Sign Value Performing Clinician Faci lity 06-18-2024 10:51-0500 Body height 167.6 cm Nirali [employer]oll [employer] [facility] 06-18-2024 10:51-0500 Body mass index (BMI) [Ratio] 39.06 kg/m2 Niraliamor Perezoll [employer] [facility] 06-18-2024 10:51-0500 Body weight 109.77 kg Niraliamor Perezoll [employer] [facility] 05-21-2024 13:33-0400 Body height 167.6 cm John Rowley DO Work Phone: [facility] [employer] 05-21-2024 13:33-0400 Body mass index (BMI) [Ratio] 39.16 kg/m2 John Rowley DO Work Phone: [employer] [employer] 05-21-2024 13:33-0400 Body weight 110.04 kg John Rowley DO [facility] 05-21-2024 13:33-0400 Diastolic blood pressure 72 mm[Hg] John Rowley DO [facility] 05-21-2024 13:33-0400 Heart rate 81 /min John Rowley DO [facility] 05-21-2024 13:33-0400 Systolic blood pressure 127 mm[Hg] John Rowley DO Work Phone: [facility] Encounters Encounter Date Encounter Type Care Provider Facility Start: 06-18-2024 End: 06-18-2024 Postop follow up visit related to original px Nirali Clay [employer] WORK[employer]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 ADVISOR Work Phone: [facility] Comment on above: Status post repair o f ventral hernia (Primary Dx) Start: 06-18-2024 End: 06-18-2024 ambulatory [facility] Owen CLAY [facility] Start: 06-02-2024 End: 06-02-2024 Orders Only S[facility] [facility] Comment on above: Ventral hernia witho ut obstruction or gangrene Start: 05-30-2024 End: 11-20-2024 Telephone encounter Nathalie Juanita [facility] Start: 05-22-2024 ambulatory LONDON YODER [facility] Start: 05-21-2024 End: 05-21-2024 Office outpatient new 45 minutes John Rowley DO Work Phone: [facility] Comment on above: Ventral hernia witho ut obstruction or gangrene (Primary Dx); Severe obesity with serious comorbidity and body mass index (BMI) 120% of 95th percentile to less than 140% of 95th percentile for age in pediatric patient, unspecified obesity type (CMS-HCC); History of hypertension; History of renal insufficiency Start: 05-21-2024 End: 05-21-2024 ambulatory JOHN ROWLEY [facility] Start: 05-11-[address] [...] for malign ant neoplasm of colon Colonoscopy [facility] Start: 06-18-2025 Adult BMI Screening Adult BMI Screen ing [facility] Start: 06-18-2025 Tobacco Screening Tobacco Screening [facility] Start: 05-21-2025 Adult BMI Screening Adult BMI Screen ing [facility] Start: 05-21-2025 Tobacco Screening Tobacco Screening [facility] Start: 03-30-2025 Influenza vaccination Influenza Vacc ine [facility] Start: 06-18-2024 End: 06-18-2024 Patient encounter procedure 06/18/2024 11:00 AM EST Office Visit [facility] General Surgery [address] [place] [id number] Nirali Clay, RAG PRODUCTION WORKER-EVALUATION ADVISOR [address], [place] [id number] [facility] General Surgery Start: 03-30-2024 Influenza vaccination Influenza Vacc ine [facility] Start: 2020 Fall Risk Screening Fall Risk Screen ing [facility] Start: 04-04-2018 Administration of varicella zoster vaccine Zoster (Shingles) Vaccine (2 of 3) [facility] Start: 1974 DTaP,Tdap and Td Vaccines (1 - Tdap) DTaP,Tdap and Td Vaccines (1 - Tdap) [facility] Start: 1973 Adult BMI Follow Up Plan Adult BMI Follow Up Plan [facility] Start: 1967 Depression Screening Depression Scre ening [facility] Start: 1955 Medicare Annual Well ness Visit Medicare Annual Wellness Visit [facility] End: 05-21-2025 CBC panel - Blood by Automated count CBC without diff Lab Routine Ventral hernia without obstruction or gangrene 1 Occurrences starting 05/21/2024 until 05/21/2025 [facility] Work Phone: Comment on above: 1 Occurrences starti ng 05/21/2024 until 05/21/2025 End: 05-21-2025 Comprehensive metabolic 2000 panel - Serum or Plasma Comprehensive metabolic panel Lab Routine Ventral hernia without obstruction or gangrene 1 Occurrences starting 05/21/2024 until 05/21/2025 [facility] Comment on above: 1 Occurrences starti ng 05/21/2024 until 05/21/2025 End: 05-21-2025 Unlisted [facility] Procedure Unlisted [facility] Procedure Procedures Routine Ventral hernia without obstruction or gangrene 1 Occurrences starting 05/21/2024 until 05/21/2025 [facility] Comment on above: 1 Occurrences starti ng 05/21/2024 until 05/21/2025 Immunizations Immunization Date Immunization Notes Care Provider Drea houston 05-07-2023 influenza virus vaccine, unspecified formulation John Rowley DO Work Phone: [facility] [employer] 02-07-2018 zoster vaccine, unspecified formulation John Rowley DO [facility] Payers Date Payer Category Payer Medicare O ANTH MEDICARE [id number] 1959 Unknown [id number] 1955 Unknown [id number] 3 1955 Unknown [id number] 3 1955 Unknown [id number] 3 1955 Unknown [id number] 3 1955 Unknown [id number] 3 1955 Unknown [id number] 86 1955 Unknown [id number] 86 1955 Unknown [id number] 86 1955 Unknown [id number] 86 1955 Unknown [id number] 86 Social History Date Type Detail Facility Start: 05-21-2024 [facility] Start: 07-30-2000 End: 07-30-2007 History of tobacco use Current smoker [facility] Start: 07-30-2000 End: 07-30-2007 History of tobacco use Cigarette Smoker [facility] Start: 01-08-2019 End: 05-21-2024 Cigarettes smoked current (pack per day) - Reported 1 [facility] Start: 05-21-2024 Tobacco use and exposure Smokeless tobacco non-user [facility] Start: 05-21-2024 End: 06-18-2024 Alcoholic beverage intake Ex-drinker (finding) [facility] Start: 01-08-2019 End: 05-21-2024 Tobacco use panel [facility] Childcare Unknown [facility] Start: 1955 Sex assigned at Not on file P [facility] Start: 03-04-2015 Sex Female (finding) [facility] Clinical Notes 05-21-2024 to 06-18-2024 Nirali Clay, [employer]AG PRODUCTION WORKER-EVALUATION ADVISOR - 06/18/2024 11:00 AM ESTTelephone Encounter - Nathalie Grant, [facility] - 05/30/2024 3:18 PM EDTTelephone Encounter - Nathalie Grant, [facility] - 05/30/2024 3:18 PM EDT Note Date & Type Note Facility 06-18-2024 [...] of ventral hernia [Z98.890, Z87.19] DENIS HARRIS [facility] [place] This note was created with the assistance of a speech recognition program. While intending to generate a timely document that accurately reflects the content of the visit, no guarantee can be provided that every grammatical or spelling mistake has been or will be identified or corrected. Thank you for your understanding. DENIS Harris 06/18/24 1100 documented in this encounter [facility] 05-30-2024 Miscellaneous Notes Formattin g of this note might be different from the original. Medical clearance required by PCP - stated on ventral hernia order by Dr. Rowley. Clearance faxed over on 05/21/24. No response yet. Faxed over again on 05/30/24. MITUL Sinclair from [facility] called about it on 05/30/24. I stated, I will send it over NOEMI as soon as I get it. The patient knows to stop her aspirin 1 week prior to surgery. 06/02/[address] Yoder's office to check on the medical clearance. I spoke with [place], who verified they received the clearance sheet. She said they have left messages for Jena to get in an appointment for the clearance. They are going to try to get her in NOEMI. Karla Cruz From [facility] called about the clearance. I informed her of the current status. documented in this encounter [facility] 05-30-2024 Telephone encount er Note Medical clearance required by PCP - stated on ventral hernia order by Dr. Rowley. Clearance faxed over on 05/21/24. No response yet. Faxed over again on 05/30/24. MITUL Sinclair from [facility] called about it on 05/30/24. I stated, I will send it over NOEMI as soon as I get it. The patient knows to stop her aspirin 1 week prior to surgery. [facility] 05-30-2024 Telephone encount er Note 06/02/[address] Yoder's office to check on the medical clearance. I spoke with [place], who verified they received the clearance sheet. She said they have left messages for Jena to get in an appointment for the clearance. They are going to try to get her in NOEMI. Karla Cruz From [facility] called about the clearance. I informed her of the current status. [facility] 05-21-2024 History of Presen t illness Narrative Images from the original note were not included. [facility] [address] [id number] CONSULT NOTE CHIEF COMPLAINT Chief Complaint Patient presents with Hernia Ventral hernia, [facility] 05/13/24 eJna Meraz is a 68 y.o. female who presents with complaints of a right-sided abdominal wall hernia which she was found to have on a CT scan performed at the [facility] on 05/13/2024. Patient went to the [...] creatinine of 1.34. CT scan from the [facility] as well as ED report and [...] 09/11/2022 Performed by John Rowley DO at [facility] HYSTERECTOMY 2008 TUBAL LIGATION 1986 SOCIAL [...] Referring and communicating with other health care connector Ventral hernia without obstruction or gangrene [K43.9] John Rowley, This note was created with the assistance of a speech recognition program. While intending to generate a timely document that accurately reflects the content of the visit, no guarantee can be provided that every grammatical or spelling mistake has been or will be identified or corrected. Thank you for your understanding. documented in this encounter [facility] Evaluation note Diagnosis Ventral hernia without obstruction or gangrene- Primary Unspecified ventral hernia without mention of obstruction or gangrene Severe obesity with serious comorbidity and body mass index (BMI) 120% of 95th percentile to less than 140% of 95th percentile for age in pediatric patient, unspecified obesity type ([facility]-HCC) History of hypertension Personal history of other diseases of circulatory system History of renal insufficiency documented [facility] Diagnosis Ventral hernia without obstruction or gangrene Unspecified ventral hernia without mention of obstruction or gangrene documented [facility] encounter [facility] Diagnosis Status post repair of ventral hernia- Primary Other postprocedural status documented in this encounter [facility] on filedocumented in this encounter [facility] [employer] SystemInstructionsNot on filedocumented in this encounter [facility] [employer] SystemInstructionsNot on filedocumented in this encounter [facility] [employer] SystemInstructionsNot on filedocumented in this encounter [facility] [employer] System Summary Purpose Family History No Family History Records FoundNo Family History Records Found Advance Directives No Advanced Directives Records FoundNo Advanced Directives Records Found Additional Source Comments INFORMATION SOURCE (unrecogn ized section and content) DATE CREATED AUTHOR 05/09/2022 [facility] DATE CREATED AUTHOR AUTHOR'S ORGANIZ ATION 06/21/2024 [facility] Reason for Visit (unrecogniz ed section and content) Reason Comments Hernia Ventral hernia, [facility] ER 05/13/24 Reason Comments POST-OP VISIT POST OP - DAVINCI VE NTRAL HERNIA REPAIR PERFORMED 06/04/24 @ [facility] BY DR. ROWLEY Care Teams (unrecognized sec tion and content) Trimmer Climber Relationship Specialty Start Date End Date London Yoder DO [address] [place] [address] PCP - General Family Medicine 04/17/22 Trimmer Climber Relationship Specialty Start Date End Date London Yoder DO [address] [place] [address] PCP - General Family Medicine 04/17/22 Trimmer Climber Relationship Specialty Start Date End Date London Yoder DO [address] [place] [address] PCP - General Family [facility] 04/17/22 Trimmer Climber Relationship Specialty Start Date End Date London Yoder DO [address] [place] [address] PCP - General Family [facility] 04/17/22 FOR RECORDS PERTAINING TO PATIENTS WHO [...] BE BASED ON THE PRIMARY CLINICAL RECORDS. [employer] [facility]. provides no warranty or guarantee of the accuracy or completeness of information in this document.
[2024-12-17 07:44] LABS: Basophils Percent Auto 0.4 % (0.2-2.0); Eosinophils Absolute Auto 0.1 10^3/uL (0.0-0.7); Hematocrit 43.3 % (36.0-48.0); Immature Granulocytes Abs Auto 0.01 10^3/uL (0.00-0.03); Immature Granulocytes Pct Auto 0.2 % (0.0-0.5); Lymphocytes Absolute Auto 1.3 10^3/uL (1.2-3.8); Lymphocytes Percent Auto 27.7 % (20.5-60.0); Mean Corpuscular HGB Conc 32.3 g/dL (29.9-35.2); Mean Corpuscular Hemoglobin 28.7 pg (26.7-34.0); Mean Corpuscular Volume 88.9 fL (81.0-99.0); Mean Platelet Volume 9.7 fL (9.5-13.5); Monocytes Absolute Auto 0.4 10^3/uL (0.3-0.8); Monocytes Percent Auto 8.2 % (1.7-12.0); Neutrophils Absolute Auto 2.8 10^3/uL (1.4-6.5); Neutrophils Percent Auto 61.5 % (43.0-75.0); Platelet Count 245 10^3/uL (150-450); Red Blood Count 4.87 10^6/uL (4.20-5.40); Red Cell Distribution Width 13.1 % (11.0-15.0); White Blood Count 4.5 10^3/uL (4.0-11.0)
[2024-12-17 08:09] LABS: Creatinine Urine Random 106.55 mg/dL (20.00-300.00); Microalbumin Urine Random <1.3 mg/dL (<=30.0)
[2024-12-17 08:45] LABS: Alanine Aminotransferase 26 U/L (14-59); Albumin Globulin Ratio 1.1; Albumin Level 3.6 g/dL (3.4-5.0); Alkaline Phosphatase 68 U/L (46-116); Anion Gap 12.7; Aspartate Amino Transferase 17 U/L (15-37); BUN Creatinine Ratio 31.3; Bilirubin Total 0.5 mg/dL (0.2-1.0); Calcium 9.7 mg/dL (8.5-10.1); Carbon Dioxide 30.6 mmol/L (21.0-32.0); Chloride 105 mmol/L (98-107); Chol HDL Ratio 3.2; Cholesterol 193 mg/dL (<=200); Estimated GFR (African America >60 (>=60 mL/min/1.73m^2); Estimated GFR (Non-African Ame 56 (>=60 mL/min/1.73m^2); Free T3 3.52 pg/mL (2.18-3.98); Globulin 3.3 g/dL; Glucose 118 mg/dL (74-106); HDL Cholesterol 61 mg/dL (40-60); Potassium 4.3 mmol/L (3.5-5.1); Sodium 144 mmol/L (136-145); Thyroid Stimulating Hormone 1.467 uIU/mL (0.358-3.740); Total Protein 6.9 g/dL (6.4-8.2); Triglycerides 135 mg/dL (<=150)
[2024-12-17 08:59] LABS: Estimated Average Glucose 134 mg/dL; Glycohemoglobin A1C 6.3 % (4.5-6.2)
[2024-12-17 11:26] LABS: Free T4 1.19 ng/dL (0.76-1.46)
[2024-12-18 04:07] LABS: Vitamin B12 405 pg/mL (232-1245)
== END 2024-12-17 07:13 | disposition home or self-care (01) ==
LOC: LAB 07:14
PROVIDERS: PCP Family Medicine; Visit Provider Family Medicine
DX: R53.82 Chronic fatigue, unspecified (principal); I10 Essential (primary) hypertension; R73.03 Prediabetes; E55.9 Vitamin D deficiency, unspecified
CPT/HCPCS: 36415; 80053; 80061; 82043; 82306; 82570; 82607; 82746; 83036; 84439; 84443; 84481; 85025

== ENCOUNTER 2025-04-08 05:01 | Emergency (ER) | payer MEDICARE, SELFPAY ==
--- OUTSIDE RECORDS SUMMARY | 2025-04-08 05:07 | XMS_ITS | CCD ---
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; Translations: [PENITENTIARY CURRENT USE OF ASPIRIN] Onset: 04-25-2022 Episodic Other aftercare (1 source) Other fci (current) drug therapy; Translations: [OTH MANUAL WINDER CURRENT DRUG THERAPY] Onset: 04-25-2022 Episodic Other [...] pane eleni 05-30-2024 External Anion Gap 12.9 [facility] External Blood Urea Nitrogen Bun 33 [facility] External Calcium Ca 9.5 [facility] External Chloride 105 [facility] External Co2 / Carbon Dioxide 29.4 [facility] External Creatinine 1.29 [facility] External Gfr Amer 50 [facility] External Gfr Non Amer 41 [facility] External Glucose Fasting Or Random (Fbs) 122 [facility] External Potassium K 4.3 [facility] External Sodium Na 143 [facility] CBC AUTO DIFFon 04-22-2022 BASO # 0.0 103/ul Normal 0.0-0.1 [facility] Comment on above: Performed By: #### C BC #### [facility] [address] [place] [address] Dr. Ruddy Oswald Basophils/100 WBC (Bld) 0.7 % Normal 0.2-2.0 [facility] Comment on above: Performed By: #### C BC #### [facility] [address] [place] [address] Dr. Ruddy Oswald EO # 0.1 103/ul Normal 0.0-0.7 [facility] Comment on above: Performed By: #### C BC #### [facility] [address] [place] [address] Dr. Ruddy Oswald Eosinophils/100 WBC (Bld) 1.4 % Normal 0.9-7.0 [facility] Comment on above: Performed By: #### C BC #### [facility] [address] [place] [address] Dr. Ruddy Oswald Erythrocyte distribution width (RBC) [Ratio] 14.6 % Normal 11.0-15.0 [facility] Comment on above: Performed By: #### C BC #### [facility] [address] [place] [address] Dr. Ruddy Oswald Hematocrit (Bld) [Volume fraction] 40.2 % Normal 36.0-48.0 [facility] Comment on above: Performed By: #### C BC #### [facility] [address] [place] [address] Dr. Ruddy Oswald Hemoglobin (Bld) [Mass/Vol] 12.6 g/dL Normal 12.0-16.0 [facility] Comment on above: Performed By: #### C BC #### [facility] [address] [place] [address] Dr. Ruddy Oswald IG # 0.01 10e3/ul Normal 0.00-0.03 [facility] Comment on above: Performed By: #### C BC #### [facility] [address] [place] [address] Dr. Ruddy Oswald IG % 0.2 % Normal 0.0-0.5 [facility] Comment on above: Performed By: #### C BC #### [facility] [address] [place] [address] Dr. Ruddy Oswald LYMPH # 1.5 103/ul Normal 1.2-3.8 [facility] Comment on above: Performed By: #### C BC #### [facility] [address] [place] [address] Dr. Ruddy Oswald Lymphocytes/100 WBC (Bld) 32.8 % Normal 20.5-60.0 [facility] Comment on above: Performed By: #### C BC #### [facility] [address] [place] [address] Dr. Ruddy Oswald MANUAL DIFF REQ NO Normal [facility] Comment on above: Performed By: #### C BC #### [facility] [address] [place] [address] Dr. Ruddy Oswald MCH (RBC) [Entitic mass] 26.7 pg Normal 26.7-34.0 [facility] Comment on above: Performed By: #### C BC #### [facility] [address] [place] [address] Dr. Ruddy Oswald MCHC (RBC) [Mass/Vol] 31.3 g/dL Normal 29.9-35.2 [facility] Comment on above: Performed By: #### C BC #### [facility] [address] [place] [address] Dr. Ruddy Oswald MCV (RBC) [Entitic vol] 85.2 fL Normal 81.0-99.0 [facility] Comment on above: Performed By: #### C BC #### [facility] [address] [place] [address] Dr. Ruddy Oswald MONO # 0.4 103/ul Normal 0.3-0.8 [facility] Comment on above: Performed By: #### C BC #### [facility] [address] [place] [address] Dr. Ruddy Oswald Monocytes/100 WBC (Bld) 8.6 % Normal 1.7-12.0 [facility] Comment on above: Performed By: #### C BC #### [facility] [address] [place] [address] Dr. Ruddy Oswald NEUT # 2.5 103/ul Normal 1.4-6.5 [facility] Comment on above: Performed By: #### C BC #### [facility] [address] [place] [address] Dr. Ruddy Oswald Neutrophils/100 WBC (Bld) 56.3 % Normal 43.0-75.0 [facility] Comment on above: Performed By: #### C BC #### [facility] [address] [address] [address] Ruddy Oswald Platelet mean volume (Bld) [Entitic vol] 9.4 fL Critically low 9.5-13.5 [facility] Comment on above: Performed By: #### C BC #### [facility] [address] [address] [address] Ruddy Oswald PLT 269 103/ul Normal 150-450 [facility] Comment on above: Performed By: #### C BC #### [facility] [address] [address] [address] Ruddy Oswald RBC 4.72 106/ul Normal 4.20-5.40 [facility] Comment on above: Performed By: #### C BC #### [facility] [address] [address] [address] Ruddy Oswald WBC 4.4 103/ul Normal 4.0-11.0 [facility] Comment on above: Performed By: #### C BC #### [facility] [address] ABD/PELVIS WO CONon [...] SHADY WARE Date: 2022-04-22 12:27 Normal [facility] PROF 14(COMP METB)on 04-22- 022 Albumin [Mass/Vol] 3.9 g/dL Normal 3.4-5.0 [facility] Comment on above: Performed By: #### C MP #### [facility] [address] [address] [address] Ruddy Oswald Albumin/Globulin [Mass ratio] 1.2 {ratio} Normal [facility] Comment on above: Performed By: #### C MP #### [facility] [address] [address] [address] Ruddy Oswald ALP [Catalytic activity/Vol] 53 U/L Normal 46-116 [facility] Comment on above: Performed By: #### C MP #### [facility] [address] [address] [address] Ruddy Oswald ALT [Catalytic activity/Vol] 20 U/L Normal 14-59 [facility] Comment on above: Performed By: #### C MP #### [facility] [address] [address] [address] Ruddy Oswald Anion gap [Moles/Vol] 9.1 mmol/L Normal [facility] Comment on above: Performed By: #### C MP #### [facility] [address] [address] [address] Ruddy Oswald AST [Catalytic activity/Vol] 13 U/L Critically low 15-37 [facility] Comment on above: Performed By: #### C MP #### [facility] [address] [address] [address] Ruddy Oswald Bilirubin [Mass/Vol] 0.4 mg/dL Normal 0.2-1.0 [facility] Comment on above: Performed By: #### C MP #### [facility] [address] [address] [address] Ruddy Oswald Calcium [Mass/Vol] 9.3 mg/dL Normal 8.5-10.1 [facility] Comment on above: Performed By: #### C MP #### [facility] [address] [address] [address] Ruddy Oswald Chloride [Moles/Vol] 104 mmol/L Normal 98-107 [facility] Comment on above: Performed By: #### C MP #### [facility] [address] [address] [address] Ruddy Oswald CO2 [Moles/Vol] 29.9 mmol/L Normal 21.0-32.0 [facility] Comment on above: Performed By: #### C MP #### [facility] [address] [address] [address] Ruddy Oswald Creatinine [Mass/Vol] 1.21 mg/dL Critically high 0.55-1.02 [facility] Comment on above: Performed By: #### C MP #### [facility] [address] [address] [address] Ruddy Oswald EGFR-AF LEBANESE 54 mL/min/1.73m2 Critically low >=60 [facility] Comment on above: Performed By: #### C MP #### [facility] [address] [address] [address] Ruddy Oswald EGFR-NON AF LEBANESE 45 mL/min/1.73m2 Critically low >=60 [facility] Comment on above: Performed By: #### C MP #### [facility] [address] [address] [address] Ruddy Oswald Globulin (S) [Mass/Vol] 3.3 g/dL Normal [facility] Comment on above: Performed By: #### C MP #### [facility] [address] [address] [address] Ruddy Oswald Glucose [Mass/Vol] 121 mg/dL Critically high 74-[address] [facility] Comment on above: Performed By: #### C MP #### [facility] [address] [address] [address] Ruddy Oswald Potassium [Moles/Vol] 4.0 mmol/L Normal 3.5-5.1 [facility] Comment on above: Performed By: #### C MP #### [facility] [address] [place] [address] Dr. Ruddy Oswald Protein [Mass/Vol] 7.2 g/dL Normal 6.4-8.2 [facility] Comment on above: Performed By: #### C MP #### [facility] [address] [place] [address] Dr. Ruddy Oswald Sodium [Moles/Vol] 139 mmol/L Normal 136-145 [facility] Comment on above: Performed By: #### C MP #### [facility] [address] [place] [address] Dr. Ruddy Oswald Urea nitrogen [Mass/Vol] 40.0 mg/dL Critically high 7.0-18.0 [facility] Comment on above: Performed By: #### C MP #### [facility] [address] [place] [address] Dr. Ruddy Oswald Urea nitrogen/Creatinine [Mass ratio] 33.1 mg/mg Normal [facility] Comment on above: Performed By: #### C MP #### [facility] [address] [place] [address] Dr. Ruddy Oswald CBC AUTO DIFFon 01-31-2022 BASO # 0.0 103/ul Normal 0.0-0.1 [facility] Comment on above: Performed By: #### C BC #### [facility] [address] [place] [address] Dr. Ruddy Oswald Basophils/100 WBC (Bld) 0.7 % Normal 0.2-2.0 [facility] Comment on above: Performed By: #### C BC #### [facility] [address] [place] [address] Dr. Ruddy Oswald EO # 0.1 103/ul Normal 0.0-0.7 [facility] Comment on above: Performed By: #### C BC #### [facility] [address] [place] [address] Dr. Ruddy Oswald Eosinophils/100 WBC (Bld) 2.4 % Normal 0.9-7.0 [facility] Comment on above: Performed By: #### C BC #### [facility] [address] [place] [address] Dr. Ruddy Oswald Erythrocyte distribution width (RBC) [Ratio] 13.8 % Normal 11.0-15.0 [facility] Comment on above: Performed By: #### C BC #### [facility] [address] [place] [address] Dr. Ruddy Oswald Hematocrit (Bld) [Volume fraction] 39.0 % Normal 36.0-48.0 [facility] Comment on above: Performed By: #### C BC #### [facility] [address] [place] [address] Dr. Ruddy Oswald Hemoglobin (Bld) [Mass/Vol] 11.8 g/dL Critically low 12.0-16.0 [facility] Comment on above: Performed By: #### C BC #### [facility] [address] [place] [address] Dr. Ruddy Oswald IG # 0.01 10e3/ul Normal 0.00-0.03 [facility] Comment on above: Performed By: #### C BC #### [facility] [address] [place] [address] Dr. Ruddy Oswald IG % 0.2 % Normal 0.0-0.5 [facility] Comment on above: Performed By: #### C BC #### [facility] [address] [place] [address] Dr. Ruddy Oswald LYMPH # 1.5 103/ul Normal 1.2-3.8 [facility] Comment on above: Performed By: #### C BC #### [facility] [address] [place] [address] Dr. Ruddy Oswald Lymphocytes/100 WBC (Bld) 35.6 % Normal 20.5-60.0 [facility] Comment on above: Performed By: #### C BC #### [facility] [address] [place] [address] Dr. Ruddy Oswald MANUAL DIFF REQ NO Normal [facility] Comment on above: Performed By: #### C BC #### [facility] [address] [place] [address] Dr. Ruddy Oswald MCH (RBC) [Entitic mass] 26.1 pg Critically low 26.7-34.0 [facility] Comment on above: Performed By: #### C BC #### [facility] [address] [place] [address] Dr. Ruddy Oswald MCHC (RBC) [Mass/Vol] 30.3 g/dL Normal 29.9-35.2 [facility] Comment on above: Performed By: #### C BC #### [facility] [address] [place] [address] Dr. Ruddy Oswald MCV (RBC) [Entitic vol] 86.3 fL Normal 81.0-99.0 [facility] Comment on above: Performed By: #### C BC #### [facility] [address] [place] [address] Dr. Ruddy Oswald MONO # 0.3 103/ul Normal 0.3-0.8 [facility] Comment on above: Performed By: #### C BC #### [facility] [address] [place] [address] Dr. Ruddy Oswald Monocytes/100 WBC (Bld) 6.7 % Normal 1.7-12.0 [facility] Comment on above: Performed By: #### C BC #### [facility] [address] [place] [address] Dr. Ruddy Oswald NEUT # 2.3 103/ul Normal 1.4-6.5 [facility] Comment on above: Performed By: #### C BC #### [facility] [address] [place] [address] Dr. Ruddy Oswald Neutrophils/100 WBC (Bld) 54.4 % Normal 43.0-75.0 [facility] Comment on above: Performed By: #### C BC #### [facility] [address] [place] [address] Dr. Ruddy Oswald Platelet mean volume (Bld) [Entitic vol] 9.7 fL Normal 9.5-13.5 [facility] Comment on above: Performed By: #### C BC #### [facility] [address] [place] [address] Dr. Ruddy Oswald PLT 318 103/ul Normal 150-450 [facility] Comment on above: Performed By: #### C BC #### [facility] [address] [place] [address] Dr. Ruddy Oswald RBC 4.52 106/ul Normal 4.20-5.40 [facility] Comment on above: Performed By: #### C BC #### [facility] [address] [place] [address] Dr. Ruddy Oswald WBC 4.2 103/ul Normal 4.0-11.0 [facility] Comment on above: Performed By: #### C BC #### [facility] [address] [place] [address] Dr. Ruddy Oswald LIPID PROFILEon 01-31-2022 CHOL-HDL RATIO NORM SEE BELOW Normal [facility] Comment on above: Result Comment: 3.3 - 4.4 LOW RISK 4.4 - 7.1 AVERAGE RISK 7.1 - 11.0 MODERATE RISK >11.0 HIGH RISK Performed By: #### L IPID, CMP #### [facility] [address] [place] [address] Dr. Ruddy Oswald Cholesterol [Mass/Vol] 192 mg/dL Normal <=200 [facility] Comment on above: Performed By: #### L IPID, CMP #### [facility] [address] [place] [address] Dr. Ruddy Oswald Cholesterol in HDL [Mass/Vol] 60 mg/dL Normal 40-60 [facility] Comment on above: Performed By: #### L IPID, CMP #### [facility] [address] [place] [address] Dr. Ruddy Oswald Cholesterol in LDL [Mass/Vol] 109.0 mg/dL Normal [facility] Comment on above: Performed By: #### L IPID, CMP #### [facility] [address] [address] [address] Ruddy Oswald Cholesterol.total/C holesterol in HDL [Mass ratio] 3.2 {ratio} Normal [facility] Comment on above: Performed By: #### L IPID, CMP #### [facility] [address] [address] [address] Ruddy Oswald HDL NORMAL > or = 60 mg/dl - LO W CARDIOVASCULAR RISK <40 mg/dl - HIGH CARDIOVASCULAR RISK Normal [facility] Comment on above: Performed By: #### L IPID, CMP #### [facility] [address] [place] [address] Dr. Ruddy Oswald LDL CALC NORMAL SEE BELOW Normal [facility] Comment on above: Result Comment: <100 mg/dl OPTIMAL 100 - 129 mg/dl NEAR OR ABOVE OPTIMAL 130 - 159 mg/dl BORDERLINE HIGH 160 - 189 mg/dl HIGH >190 mg/dl VERY HIGH Performed By: #### L IPID, CMP #### [facility] [address] [place] [address] Dr. Ruddy Oswald Triglyceride [Mass/Vol] 115 mg/dL Normal <=150 [facility] Comment on above: Performed By: #### L IPID, CMP #### [facility] [address] [place] [address] Dr. Ruddy Oswald VLDL CALC 23.0 mg/dL Normal [facility] Comment on above: Performed By: #### L IPID, CMP #### [facility] [address] [place] [address] Dr. Ruddy Oswald MICROALBUMIN, RAND URon 07-0 mALB <1.3 Normal <=30.0 [facility] Comment on above: Performed By: #### M ALBR #### [facility] [address] [place] [address] Dr. Ruddy Oswald PROF 14(COMP METB)on 022 Albumin [Mass/Vol] 3.6 g/dL Normal 3.4-5.0 [facility] Comment on above: Performed By: #### L IPID, CMP #### [facility] [address] [address] [address] Ruddy Oswald Albumin/Globulin [Mass ratio] 1.1 {ratio} Normal [facility] Comment on above: Performed By: #### L IPID, CMP #### [facility] [address] [address] [address] Ruddy Oswald ALP [Catalytic activity/Vol] 57 U/L Normal 46-116 [facility] Comment on above: Performed By: #### L IPID, CMP #### [facility] [address] [address] [address] Ruddy Oswald ALT [Catalytic activity/Vol] 23 U/L Normal 14-59 [facility] Comment on above: Performed By: #### L IPID, CMP #### [facility] [address] [place] [address] Dr. Ruddy Oswald Anion gap [Moles/Vol] 11.0 mmol/L Normal [facility] Comment on above: Performed By: #### L IPID, CMP #### [facility] [address] [place] [address] Dr. Ruddy Oswald AST [Catalytic activity/Vol] 15 U/L Normal 15-37 [facility] Comment on above: Performed By: #### L IPID, CMP #### [facility] [address] [place] [address] Dr. Ruddy Oswald Bilirubin [Mass/Vol] 0.3 mg/dL Normal 0.2-1.0 [facility] Comment on above: Performed By: #### L IPID, CMP #### [facility] [address] [place] [address] Dr. Ruddy Oswald Calcium [Mass/Vol] 9.1 mg/dL Normal 8.5-10.1 [facility] Comment on above: Performed By: #### L IPID, CMP #### [facility] [address] [place] [address] Dr. Ruddy Oswald Chloride [Moles/Vol] 106 mmol/L Normal 98-107 [facility] Comment on above: Performed By: #### L IPID, CMP #### [facility] [address] [address] [address] Ruddy Oswald CO2 [Moles/Vol] 30.0 mmol/L Normal 21.0-32.0 [facility] Comment on above: Performed By: #### L IPID, CMP #### [facility] [address] [address] [address] Ruddy Oswald Creatinine [Mass/Vol] 0.98 mg/dL Normal 0.55-1.02 [facility] Comment on above: Performed By: #### L IPID, CMP #### [facility] [address] [address] [address] Ruddy Oswald EGFR-AF LEBANESE >60 Normal >=60 [facility] Comment on above: Performed By: #### L IPID, CMP #### [facility] [address] [address] [address] Ruddy Oswald EGFR-NON AF LEBANESE 57 mL/min/1.73m2 Critically low >=60 [facility] Comment on above: Performed By: #### L IPID, CMP #### [facility] [address] [address] [address] Ruddy Oswald Globulin (S) [Mass/Vol] 3.4 g/dL Normal [facility] Comment on above: Performed By: #### L IPID, CMP #### [facility] [address] [address] [address] Ruddy Oswald Glucose [Mass/Vol] 121 mg/dL Critically high 74-106 [facility] Comment on above: Performed By: #### L IPID, CMP #### [facility] [address] [address] [address] Ruddy Oswald Potassium [Moles/Vol] 5.0 mmol/L Normal 3.5-5.1 [facility] Comment on above: Performed By: #### L IPID, CMP #### [facility] [address] [address] [address] Ruddy Oswald Protein [Mass/Vol] 7.0 g/dL Normal 6.4-8.2 [facility] Comment on above: Performed By: #### L IPID, CMP #### [facility] [address] [address] [address] Ruddy Oswald Sodium [Moles/Vol] 142 mmol/L Normal 136-145 [facility] Comment on above: Performed By: #### L IPID, CMP #### [facility] [address] [address] [address] Ruddy Owsald Urea nitrogen [Mass/Vol] 30.0 mg/dL Critically high 7.0-18.0 [facility] Comment on above: Performed By: #### L IPID, CMP #### [facility] [address] [address] [address] Ruddy Oswald Urea nitrogen/Creatinine [Mass ratio] 30.6 mg/mg Normal [facility] Comment on above: Performed By: #### L IPID, CMP #### [facility] [address] [address] [address] Ruddy Oswald US BREAST LEFT LIMITEDon US BREAST LEFT LIMITED Patient: JENA MERAZ Exam Date: 11/08/2021 : 1955 Gender:F Ordering : DR LONDON YODER D.O. Admission #: [id number] Family : Order #: [id number] CLICK HERE TO VIEW EXAM RADIOLOGY REPORT [...] Diaz M.D. on 11/08/2021 at 09:55 Normal [facility] MG MAMM SCREEN 3D NITHYA CADon 09-28-2021 MG MAMM SCREEN 3D NITHYA CAD Patient: JENA MERAZ Exam Date: 09/28/2021 : 1955 Gender:F Ordering : DR LONDON YODER D.O. Admission #: [id number] Family : Order #: [id number] CLICK HERE TO VIEW EXAM RADIOLOGY REPORT [...] leukemia cancer at age 78. LOCATION: [facility] BREAST COMPOSITION: Scattered areas fibroglandular density. [...] M.D. on 09/28/2021 at 11:12 Normal [facility] XR DEXA BONE DENSITYon 09-28 [...] FUAD DIAZ Date: 2021-09-28 14:43 Normal [facility] Vital Signs Date Time Vital Sign Value Performing Clinician Faci lity 06-18-2024 10:51-0500 Body height 167.6 cm Nirali Perezoll [employer]ILING MACHINE [employer] [facility] 06-18-2024 10:51-0500 Body mass index (BMI) [Ratio] 39.06 kg/m2 Niraliamro Perezoll PROFILING MACHINE [employer] [employer] [facility] 06-18-2024 10:51-0500 Body weight 109.77 kg Niraliamor Perezoll PROFILING MACHINE SET [employer] [employer] [facility] 05-21-2024 13:33-0400 Body height 167.6 cm John Rowley DO Work Phone: [employer] 05-21-2024 13:33-0400 Body mass index (BMI) [Ratio] 39.16 kg/m2 John Rowley DO Work Phone: [employer] 05-21-2024 13:33-0400 Body weight 110.04 kg John Rowley DO [facility] 05-21-2024 13:33-0400 Diastolic blood pressure 72 mm[Hg] John Rowley DO [facility] 05-21-2024 13:33-0400 Heart rate 81 /min John Rowley DO [facility] 05-21-2024 13:33-0400 Systolic blood pressure 127 mm[Hg] John Rowley DO Work Phone: [facility] Encounters Encounter Date Encounter Type Care Provider Facility Start: 06-18-2024 End: 06-18-2024 Postop follow up visit related to original px Nirali Clay PROFILING MACHINE SET UP OPERATOR TOOL-PARENT EDUCATOR Work Phone: [facility] Physicians General Surgery Comment on above: Status post repair o f ventral hernia (Primary Dx) Start: 06-18-2024 End: 06-18-2024 ambulatory [facility] Owen CLAY [facility] Start: 06-02-2024 End: 06-02-2024 Orders Only [facility] [place] [facility] Comment on above: Ventral hernia witho ut obstruction or gangrene Start: 05-30-2024 End: 11-20-2024 Telephone encounter [facility] Start: 05-22-2024 ambulatory LONDON YODER [facility] Start: 05-21-2024 End: 05-21-2024 Office outpatient new 45 minutes John Rowley DO Work Phone: [facility] Phys[facility] General Surgery Comment on above: Ventral hernia witho ut obstruction or gangrene (Primary Dx); Severe obesity with serious comorbidity and body mass index (BMI) 120% of 95th percentile to less than 140% of 95th percentile for age in pediatric patient, unspecified obesity type (CMS-HCC); History of hypertension; History of renal insufficiency Start: 05-21-2024 End: 05-21-2024 ambulatory JOHN ROWLEY [facility] Start: 05-11-[address] [...] for malign ant neoplasm of colon Colonoscopy [facility] Start: 06-18-2025 Adult BMI Screening Adult BMI Screen ing [facility] Start: 06-18-2025 Tobacco Screening Tobacco Screening [facility] Start: 05-21-2025 Adult BMI Screening Adult BMI Screen ing [facility] Start: 05-21-2025 Tobacco Screening Tobacco Screening [facility] Start: 03-30-2025 Influenza vaccination Influenza Vacc ine [facility] Start: 06-18-2024 End: 06-18-2024 Patient encounter procedure 06/18/2024 11:00 AM EST Office Visit [facility] General Surgery [address] [place] [id number] Nirali Clay, PROFILING MACHINE SET UP OPERATOR TOOL-PARENT EDUCATOR [address] [place], [place] [id number] [facility] General Surgery Start: 03-30-2024 Influenza vaccination Influenza Vacc ine [facility] Start: 2020 Fall Risk Screening Fall Risk Screen ing [facility] Start: 04-04-2018 Administration of varicella zoster vaccine Zoster (Shingles) Vaccine (2 of 3) [facility] Start: 1974 DTaP,Tdap and Td Vaccines (1 - Tdap) DTaP,Tdap and Td Vaccines (1 - Tdap) [facility] Start: 1973 Adult BMI Follow Up Plan Adult BMI Follow Up Plan [facility] Start: 1967 Depression Screening Depression Scre ening [facility] Start: 1955 Medicare Annual Well ness Visit Medicare Annual Wellness Visit [facility] End: 05-21-2025 CBC panel - Blood by Automated count CBC without diff Lab Routine Ventral hernia without obstruction or gangrene 1 Occurrences starting 05/21/2024 until 05/21/2025 [facility] Work Phone: Comment on above: 1 Occurrences starti ng 05/21/2024 until 05/21/2025 End: 05-21-2025 Comprehensive metabolic 2000 panel - Serum or Plasma Comprehensive metabolic panel Lab Routine Ventral hernia without obstruction or gangrene 1 Occurrences starting 05/21/2024 until 05/21/2025 [facility] Comment on above: 1 Occurrences starti ng 05/21/2024 until 05/21/2025 End: 05-21-2025 Unlisted [facility] Procedure [facility]listed [facility] Procedure Procedures Routine Ventral hernia without obstruction or gangrene 1 Occurrences starting 05/21/2024 until 05/21/2025 [facility] Comment on above: 1 Occurrences starti ng 05/21/2024 until 05/21/2025 Immunizations Immunization Date Immunization Notes Care Provider Drea houston 05-07-2023 influenza virus vaccine, unspecified formulation John Rowley DO Work Phone: [facility] 02-07-2018 zoster vaccine, unspecified formulation [facility] DO [facility] Payers Date Payer Category Payer Medicare O ANTH MEDICARE [id number] 1959 Unknown [id number] 1955 Unknown [id number] 3 1955 Unknown [id number] 3 1955 Unknown [id number] 3 1955 Unknown [id number] 3 1955 Unknown [id number] 3 1955 Unknown [id number] 86 1955 Unknown [id number] 86 1955 Unknown [id number] 86 1955 Unknown [id number] 86 1955 Unknown [id number] 86 Social History Date Type Detail Facility Start: 05-21-2024 [facility] Start: 07-30-2000 End: 07-30-2007 History of tobacco use Current smoker [facility] Start: 07-30-2000 End: 07-30-2007 History of tobacco use Cigarette Smoker [facility] Start: 01-08-2019 End: 05-21-2024 Cigarettes smoked current (pack per day) - Reported 1 [facility] Start: 05-21-2024 Tobacco use and exposure Smokeless tobacco non-user [facility] Start: 05-21-2024 End: 06-18-2024 Alcoholic beverage intake Ex-drinker (finding) [facility] Start: 01-08-2019 End: 05-21-2024 Tobacco use panel [facility] Childcare Unknown [facility] Start: 1955 Sex assigned at Not on file P [facility] Start: 03-04-2015 Sex Female (finding) [facility] Clinical Notes 05-21-2024 to 06-18-2024 Nirali Clay, 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 While intending to generate a timely document that accurately reflects the content of the visit, no guarantee can be provided that every grammatical or spelling mistake has been or will be identified or corrected. Thank you for your understanding. DENIS Harris 06/18/24 1100 documented in this encounter [facility] 05-30-2024 Miscellaneous Notes Formattin g of this note might be different from the original. Medical clearance required by PCP - stated on ventral hernia order by Dr. Rowley. Clearance faxed over on 05/21/24. No response yet. Faxed over again on 05/30/24. MITUL Sinclair from [facility] called about it on 05/30/24. I stated, [...] get her in [place]. Karla Cruz From [facility] called about the clearance. I informed her of the current status. documented in this encounter [facility] 05-30-2024 Telephone encount er Note Medical clearance required by PCP - stated on ventral hernia order by Dr. Rowley. Clearance faxed over on 05/21/24. No response yet. Faxed over again on 05/30/24. MITUL Sinclair from [facility] called about it on 05/30/24. I stated, I will send it over NOEMI as soon as I get it. The patient knows to stop her aspirin 1 week prior to surgery. [facility] 05-30-2024 Telephone encount er Note 06/02/[address] Yoder's office to check on the medical clearance. I spoke with Cab[facility], who verified they received the clearance sheet. She said they have left messages for Jena to get in an appointment for the clearance. They are going to try to get her in [place]. Karla Cruz From [facility] called about the clearance. I informed her of the current status. [facility] 05-21-2024 History of Presen t illness Narrative Images from the original note were not included. [facility] GENER[facility] SURG[facility] [address] [id number] CONSULT NOTE CHIEF COMPLAINT Chief Complaint Patient presents with Hernia Ventral hernia, [facility] ER 05/13/24 Jena Meraz is a 68 y.o. female who presents with complaints of a right-sided abdominal wall hernia which she was found to have on a CT scan performed at the [facility] on 05/13/2024. Patient went to the [...] creatinine of 1.34. CT scan from the [facility] as well as ED report and [...] 09/11/2022 Performed by John Rowley DO at [facility] HYSTERECT[facility] 2008 TUBAL LIGATION 1986 SOCIAL [...] patient/family/caregiver Referring and communicating with other health intensive care anaesthetist Ventral hernia without obstruction or gangrene [K43.9] [...] for your understanding. documented in this encounter [facility] Evaluation note Diagnosis Ventral hernia without obstruction or gangrene- Primary Unspecified ventral hernia without mention of obstruction or gangrene Severe obesity with serious comorbidity and body mass index (BMI) 120% of 95th percentile to less than 140% of 95th percentile for age in pediatric patient, unspecified obesity type ([facility]) History of hypertension Personal history of other diseases of circulatory system History of renal insufficiency documented in this [facility] Diagnosis Ventral hernia without obstruction or gangrene Unspecified ventral hernia without mention of obstruction or gangrene documented in this encounter [facility]* Diagnosis Status post repair of ventral hernia- Primary Other postprocedural status documented in this encounter [facility] System[facility]ructionsNot on filedocumented in this encounter [facility] SystemInstructionsNot on filedocumented in this encounter [facility] SystemInstructionsNot on filedocumented in this encounter [facility] SystemInstructionsNot on filedocumented in this encounter [facility] Summary Purpose Family History No Family History Records FoundNo Family History Records Found Advance Directives No Advanced Directives Records FoundNo Advanced Directives Records Found Additional Source Comments INFORMATION SOURCE (unrecogn ized section and content) DATE CREATED AUTHOR 05/09/2022 [facility] DATE CREATED AUTHOR AUTHOR'S ORGANIZ ATION 06/21/2024 [facility] Reason for Visit (unrecogniz ed section and content) Reason Comments Hernia Ventral hernia, [facility] ER 05/13/24 Reason Comments POST-OP VISIT POST OP - DAVINCI VE NTRAL HERNIA REPAIR PERFORMED 06/04/24 @ [facility] BY DR. ROWLEY Care Teams (unrecognized sec tion and content) Broaching Machine Set Up Operator Relationship Specialty Start Date End Date London Yoder DO [address] [place] [address] PCP - General Family Medicine 04/17/22 Broaching Machine Set Up Operator Relationship Specialty Start Date End Date London Yoder DO [address] [place] [address] PCP - General Family Medicine 04/17/22 Broaching Machine Set Up Operator Relationship Specialty Start Date End Date London Yoder DO [address] [place] [address] PCP - General Family [facility] 04/17/22 Broaching Machine Set Up Operator Relationship Specialty Start Date End Date London Yoder DO [address] [place] [address] PCP - General Family [facility] 04/17/22 FOR RECORDS PERTAINING TO PATIENTS WHO [...] BE BASED ON THE PRIMARY CLINICAL RECORDS. [employer] [facility] provides no warranty or guarantee of the accuracy or completeness of information in this document.
[2025-04-08 05:17] VITALS: BP 133/67; PULSE 80; TEMP 36.3; O2SAT 97; BMI 38.7
--- NOTE | 2025-04-08 05:29 | ED.ABDPAIN1 ---
HPI - Abdominal Pain General Chief Complaint: Abdominal Pain Stated Complaint: ABDOMINAL PAIN Time Seen by Provider: 04/08/25 05:24 Source: patient Mode of arrival: walk-in Limitations: no limitations History of Present Illness HPI narrative: presents complaining of LLQ pain. States started last PM. No associated fever. No nausea or vomiting. No urinary symptoms Related Data Home Medications ?Medication ?Instructions ?Recorded ?Confirmed aspirin 81 mg tablet,delayed 81 mg PO DAILY 05/13/24 06/04/24 release (Adult Aspirin Regimen) chlorthalidone 25 mg tablet 25 mg PO DAILY 05/13/24 06/04/24 lisinopril 40 mg tablet 40 mg PO DAILY 05/13/24 04/08/25 omeprazole 40 mg capsule,delayed 40 mg PO DAILY 05/13/24 04/08/25 release simvastatin 20 mg tablet 20 mg PO DAILY 05/13/24 06/04/24 multivitamin (Daily Multi-Vitamin 1 tab PO DAILY 05/30/24 06/04/24 tablet) zolpidem 10 mg tablet 10 mg PO DAILY 05/30/24 06/04/24 Previous Rx's ?Medication ?Instructions ?Recorded ibuprofen 800 mg tablet 800 mg PO Q8H PRN pain #20 tabs 06/04/24 oxycodone-acetaminophen 5 mg-325 1 tab PO Q6H PRN pain #10 tabs 06/04/24 mg tablet (Percocet) bisacodyl 5 mg tablet,delayed 5 mg PO DAILY PRN constipation #10 09/08/24 release (Dulcolax (bisacodyl)) tabs Allergies Allergy/AdvReac Type Severity Reaction Status Date / Time No Known Drug Allergies Allergy Verified 04/08/25 05:21 Review of Systems ROS Status of ROS 10 or more systems reviewed and unremarkable except as noted in history and below [facility] Medical History (Updated 04/08/25 @ 06:54 by Giovanni Prieto MD) Kidney stones ?N20.0 - Calculus of kidney (ICD-10) Chronic kidney disease ?N18.9 - Chronic kidney disease, unspecified (ICD-10) Ventral hernia ?K43.9 - Ventral hernia without obstruction or gangrene (ICD-10) GERD (gastroesophageal reflux disease) ?K21.9 - Gastro-esophageal reflux disease without esophagitis (ICD-10) High cholesterol ?E78.00 - Pure hypercholesterolemia, unspecified (ICD-10) Hypertension ?I10 - Essential (primary) hypertension (ICD-10) Surgical History (Updated 05/30/24 @ 13:56 by Jessica Johnston NP) History of tubal ligation ?Z98.51 - Tubal ligation status (ICD-10) History of hysterectomy ?Z90.710 - Acquired absence of both cervix and uterus (ICD-10) History of colonoscopy ?Z98.890 - Other specified postprocedural states (ICD-10) Family History (Updated 05/30/24 @ 13:56 by Jessica Johnston NP) Other Cancer Family history of diabetes mellitus Family history of hypertension Family history of kidney cancer Family history of myocardial infarction Social History (Updated 05/30/24 @ 13:51 by Jessica Johnston NP) Within the past year, how often did you have a drink containing alcohol: never Score interpretation: A score less than 3 is consistent with normal alcohol consumption. Smoking status: Former smoker Non-prescribed substance use: denies use Previous occupational history: Retired Highest level of school completed/degree received: high school graduate Little interest or pleasure in doing things: not at all Feeling down, depressed, or hopeless: not at all Exam Constitutional Vital Signs, click to edit/add: Last Vital Signs Temp 97.4 F L 04/08/25 05:17 Pulse 80 04/08/25 05:17 Resp 18 04/08/25 05:17 BP 133/67 04/08/25 05:17 Pulse Ox 97 04/08/25 05:17 O2 Del Method Room Air 04/08/25 05:17 Common normals: no apparent distress, average body habitus, oriented x3, no limitations, healthy appearing, alert and well nourished [facility] Common normals: normocephalic and head/scalp atraumatic Eye Common normals: EOMs intact bilaterally and conjunctivae normal Respiratory Common normals: normal respiratory effort, no retractions, no use of accessory muscles and clear to auscultation bilaterally Cardio Common normals: regular rate, regular rhythm, S1 normal heart sound and S2 normal heart sound GI Common normals: Normal to inspection, nondistended, normoactive bowel sounds present, soft to palpation and non-tender Extremity Common normals: normal to inspection and full ROM Neuro Common normals: oriented x3, moves all extremities and no focal motor deficits Psych Appearance: grossly normal Course Vital Signs Vital signs: Vital Signs Temperature 97.4 F L 04/08/25 05:17 Pulse Rate 80 04/08/25 05:17 Respiratory Rate 18 04/08/25 05:17 Blood Pressure 133/67 04/08/25 05:17 Pulse Oximetry 97 04/08/25 05:17 Oxygen Delivery Method Room Air 04/08/25 05:17 Temperature 97.4 F L 04/08/25 05:17 Pulse Rate 80 04/08/25 05:17 Respiratory Rate 18 04/08/25 05:17 Blood Pressure 133/67 04/08/25 05:17 Pulse Oximetry 97 04/08/25 05:17 Oxygen Delivery Method Room Air 04/08/25 05:17 MDM - Abdominal Pain MDM Narrative Medical decision making narrative: presents with LLQ pain that started last PM WBC normal . UA and CT abdomen pending at change of shift Lab Data Labs: Lab Results 04/08/25 Range/Units 05:27 WBC 8.8 (4.0-11.0) 10^3/uL RBC 4.98 (4.20-5.40) 10^6/uL Hgb 14.3 (12.0-16.0) g/dL Hct 44.0 (36.0-48.0) % MCV 88.4 (81.0-99.0) fL MCH 28.7 (26.7-34.0) pg MCHC 32.5 (29.9-35.2) g/dL RDW 12.8 (11.0-15.0) % Plt Count 273 (150-450) 10^3/uL MPV 9.1 L (9.5-13.5) fL Neut % (Auto) 73.2 (43.0-75.0) % Lymph % (Auto) 19.6 L (20.5-60.0) % [place] % (Auto) 5.8 (1.7-12.0) % Eos % (Auto) 1.0 (0.9-7.0) % Baso % (Auto) 0.2 (0.2-2.0) % Neut # (Auto) 6.5 (1.4-6.5) 10^3/uL Lymph # (Auto) 1.7 (1.2-3.8) 10^3/uL [place] # (Auto) 0.5 (0.3-0.8) 10^3/uL Eos # (Auto) 0.1 (0.0-0.7) 10^3/uL Baso # (Auto) 0.0 (0.0-0.1) 10^3/uL Abs Immat Gran (auto) 0.02 (0.00-0.03) 10^3/uL Imm/Tot Granulo (auto) 0.2 (0.0-0.5) % Sodium 142 (136-145) mmol/L Potassium 4.4 (3.5-5.1) mmol/L Chloride 103 (98-107) mmol/L Carbon Dioxide 29.8 (21.0-32.0) mmol/L Anion Gap 13.6 BUN 28.0 H (7.0-18.0) mg/dL Creatinine 1.03 H (0.55-1.02) mg/dL Est GFR ( Amer) >60 (>=60 mL/min/1.73m^2) Est GFR (Non-Af Amer) 53 L (>=60 mL/min/1.73m^2) BUN/Creatinine Ratio 27.2 Glucose 136 H (74-106) mg/dL Lactate 1.5 (0.4-2.0) mmol/L Calcium 9.3 (8.5-10.1) mg/dL Discharge Plan Discharge Patient Disposition: Still a Patient
[2025-04-08 05:35] LABS: Hematocrit 44.0 % (36.0-48.0); Hemoglobin 14.3 g/dL (12.0-16.0); Immature Granulocytes Abs Auto 0.02 10^3/uL (0.00-0.03); Immature Granulocytes Pct Auto 0.2 % (0.0-0.5); Lymphocytes Absolute Auto 1.7 10^3/uL (1.2-3.8); Mean Corpuscular HGB Conc 32.5 g/dL (29.9-35.2); Mean Corpuscular Hemoglobin 28.7 pg (26.7-34.0); Mean Corpuscular Volume 88.4 fL (81.0-99.0); Platelet Count 273 10^3/uL (150-450); Red Blood Count 4.98 10^6/uL (4.20-5.40); White Blood Count 8.8 10^3/uL (4.0-11.0)
[2025-04-08 05:54] LABS: Anion Gap 13.6; Blood Urea Nitrogen 28.0 mg/dL (7.0-18.0); Calcium 9.3 mg/dL (8.5-10.1); Carbon Dioxide 29.8 mmol/L (21.0-32.0); Chloride 103 mmol/L (98-107); Estimated GFR (African America >60 (>=60 mL/min/1.73m^2); Estimated GFR (Non-African Ame 53 (>=60 mL/min/1.73m^2); Glucose 136 mg/dL (74-106); Potassium 4.4 mmol/L (3.5-5.1); Sodium 142 mmol/L (136-145)
[2025-04-08] MEDS: KETOROLAC TROMETHAMINE 30 MG/ML VIAL IVP (05:58)
[2025-04-08] MEDS: 0.9 % SODIUM CHLORIDE 1,000 ML 999 ML IV (05:58)
[2025-04-08 06:03] LABS: Lactate/Lactic Acid 1.5 mmol/L (0.4-2.0)
[2025-04-08] MEDS: FENTANYL CITRATE/PF 100 MCG/2 ML VIAL IV (06:20)
[2025-04-08 06:57] LABS: Glucose Urine UA NEGATIVE (NEGATIVE)
[2025-04-08 07:07] LABS: Cast Seen? NONE SEEN #/LPF (NONE SEEN); Crystals Seen? None Seen #/HPF (None Seen); Urine Culture Indicated YES-FRMC
[2025-04-08 07:40] VITALS: BP 120/60; PULSE 60; O2SAT 98
--- NOTE | 2025-04-08 09:44 | CT_ITS ---
The [address] [address] Patient Name: CAMILLA MERAZ MRN: [id number] date: 1955 Sex: F Assigned Patient Location: ER Current Patient Location: ER Accession/Order Number: [id number] Exam Date: 04/08/2025 09:34 Report Date: 04/08/2025 10:28 At the request of: HERRERA VIVEROS MD Procedure: CT abdomen pelvis w con CT ABDOMEN AND PELVIS WITH CONTRAST COMPARISON: 04/08/2025 without contrast and 09/08/2024 CLINICAL DATA: Follow-up contrasted study partial small bowel obstruction. Lower abdominal pain since last night. Spiral images were obtained through the abdomen and pelvis following oral and [address] exam was performed using one or more following dose reduction techniques: Automated exposure control, adjustment of the mA and/or kV according to patient size, or use of iterative reconstruction technique. Limited cuts through the lung bases again show atelectasis and/or scarring. No calcified gallstones are identified. A lobulated cyst or 2 adjacent cysts are again seen at the left hepatic lobe. The spleen, pancreas and adrenal glands show no acute findings. There are symmetric renal nephrograms, without hydronephrosis. Small renal cysts are present. There is minor plaque at the aorta and iliac arteries. A few small lymph nodes are seen. No ascites is identified. There are continued borderline distended small bowel loops with air-fluid levels. Mild stool is present within the colon. Dextroscoliotic curvature and degenerative changes are present at the spine, greatest at the lower facets. There is associated mild spondylolisthesis as well as spinal stenosis at L4-5. Images through the pelvis some additional slightly distended small bowel loops centrally and on the left. There is some fecalization proximal to a transition point into more normal caliber ileal loops on the right at the central upper pelvis. No appendiceal inflammation is seen. There is a small amount of distal colonic stool. There is mild sigmoid diverticulosis. The uterus is surgically absent. There are no adnexal cysts. The urinary bladder is not well-distended however no obvious abnormalities are seen. No ascites is identified. CT/CT abdomen pelvis w con IMPRESSION: CONTINUED SUSPECTED MID TO DISTAL PARTIAL SMALL BOWEL OBSTRUCTION. HEPATIC AND RENAL CYSTS. MILD DIVERTICULOSIS. NO OTHER ACUTE FINDINGS. Impression dictated by: Esther Laughlin M.D. 04/08/2025 10:28 AM Dictation Location: [employer] Electronically authenticated by: [id number] Date: 04/08/2025 10:28
--- NOTE | 2025-04-08 11:15 | ED.GENADUL1 ---
HPI HPI - General Adult General Chief complaint: Abdominal Pain Stated complaint: ABDOMINAL PAIN Time Seen by Provider: 04/08/25 05:24 Source: patient Mode of arrival: walk-in Limitations: no limitations History of Present Illness HPI narrative: 69-year-old female presented to the emergency department and was initially seen by Dr. Prieto and signed out to me after discussing the case with him thoroughly. Please see his full history and physical exam. Related Data Home Medications ?Medication ?Instructions ?Recorded ?Confirmed aspirin 81 mg tablet,delayed 81 mg PO DAILY 05/13/24 06/04/24 release (Adult Aspirin Regimen) chlorthalidone 25 mg tablet 25 mg PO DAILY 05/13/24 06/04/24 lisinopril 40 mg tablet 40 mg PO DAILY 05/13/24 04/08/25 omeprazole 40 mg capsule,delayed 40 mg PO DAILY 05/13/24 04/08/25 release simvastatin 20 mg tablet 20 mg PO DAILY 05/13/24 06/04/24 multivitamin (Daily Multi-Vitamin 1 tab PO DAILY 05/30/24 06/04/24 tablet) zolpidem 10 mg tablet 10 mg PO DAILY 05/30/24 06/04/24 Previous Rx's ?Medication ?Instructions ?Recorded ibuprofen 800 mg tablet 800 mg PO Q8H PRN pain #20 tabs 06/04/24 oxycodone-acetaminophen 5 mg-325 1 tab PO Q6H PRN pain #10 tabs 06/04/24 mg tablet (Percocet) bisacodyl 5 mg tablet,delayed 5 mg PO DAILY PRN constipation #10 09/08/24 release (Dulcolax (bisacodyl)) tabs Allergies Allergy/AdvReac Type Severity Reaction Status Date / Time No Known Drug Allergies Allergy Verified 04/08/25 05:21 Opioid HPI Opioid Management Most Recent Opioid Data: Last Pain Scale 9 Today, 06:20 [facility] Medical History (Updated 04/08/25 @ 11:15 by Wood Jones MD) Kidney stones ?N20.0 - Calculus of kidney (ICD-10) Chronic kidney disease ?N18.9 - Chronic kidney disease, unspecified (ICD-10) Ventral hernia ?K43.9 - Ventral hernia without obstruction or gangrene (ICD-10) GERD (gastroesophageal reflux disease) ?K21.9 - Gastro-esophageal reflux disease without esophagitis (ICD-10) High cholesterol ?E78.00 - Pure hypercholesterolemia, unspecified (ICD-10) Hypertension ?I10 - Essential (primary) hypertension (ICD-10) Surgical History (Updated 05/30/24 @ 13:56 by Jessica Johnston NP) History of tubal ligation ?Z98.51 - Tubal ligation status (ICD-10) History of hysterectomy ?Z90.710 - Acquired absence of both cervix and uterus (ICD-10) History of colonoscopy ?Z98.890 - Other specified postprocedural states (ICD-10) Family History (Updated 05/30/24 @ 13:56 by Jessica Johnston NP) Other Cancer Family history of diabetes mellitus Family history of hypertension Family history of kidney cancer Family history of myocardial infarction Social History (Updated 05/30/24 @ 13:51 by Jessica Johnston NP) Within the past year, how often did you have a drink containing alcohol: never Score interpretation: A score less than 3 is consistent with normal alcohol consumption. Smoking status: Former smoker Non-prescribed substance use: denies use Previous occupational history: Retired Highest level of school completed/degree received: high school graduate Little interest or pleasure in doing things: not at all Feeling down, depressed, or hopeless: not at all Exam Constitutional Vital Signs, click to edit/add: Last Vital Signs Temp 97.4 F L 04/08/25 05:17 Pulse 60 04/08/25 07:40 Resp 20 04/08/25 07:40 BP 120/60 04/08/25 07:40 Pulse Ox 98 04/08/25 07:40 O2 Del Method Room Air 04/08/25 07:40 Course Vital Signs Vital signs: Vital Signs Temperature 97.4 F L 04/08/25 05:17 Pulse Rate 80 04/08/25 05:17 Respiratory Rate 18 04/08/25 05:17 Blood Pressure 133/67 04/08/25 05:17 Pulse Oximetry 97 04/08/25 05:17 Oxygen Delivery Method Room Air 04/08/25 05:17 Temperature 97.4 F L 04/08/25 05:17 Pulse Rate 60 04/08/25 07:40 Respiratory Rate 20 04/08/25 07:40 Blood Pressure 120/60 04/08/25 07:40 Pulse Oximetry 98 04/08/25 07:40 Oxygen Delivery Method Room Air 04/08/25 07:40 Medical Decision Making MDM Narrative Medical decision making narrative: Small bowel obstruction is identified and I have spoken to Dr. Pedersen who accepts the patient. I have also spoken with Karan, the nurse practitioner for Dr. Addison and they accept the patient. She is agreeable and stable for transfer. Treatment diagnosis and disposition were discussed with the patient. Differential Diagnosis Differential Diagnosis: Kidney stone, diverticulitis, small bowel obstruction Lab Data Lab results reviewed: Yes I reviewed the patient's lab results Labs: Lab Results 04/08/25 04/08/25 Range/Units 05:27 06:51 WBC 8.8 (4.0-11.0) 10^3/uL RBC 4.98 (4.20-5.40) 10^6/uL Hgb 14.3 (12.0-16.0) g/dL Hct 44.0 (36.0-48.0) % MCV 88.4 (81.0-99.0) fL MCH 28.7 (26.7-34.0) pg MCHC 32.5 (29.9-35.2) g/dL RDW 12.8 (11.0-15.0) % Plt Count 273 (150-450) 10^3/uL MPV 9.1 L (9.5-13.5) fL Neut % (Auto) 73.2 (43.0-75.0) % Lymph % (Auto) 19.6 L (20.5-60.0) % Pope % (Auto) 5.8 (1.7-12.0) % Eos % (Auto) 1.0 (0.9-7.0) % Baso % (Auto) 0.2 (0.2-2.0) % Neut # (Auto) 6.5 (1.4-6.5) 10^3/uL Lymph # (Auto) 1.7 (1.2-3.8) 10^3/uL Pope # (Auto) 0.5 (0.3-0.8) 10^3/uL Eos # (Auto) 0.1 (0.0-0.7) 10^3/uL Baso # (Auto) 0.0 (0.0-0.1) 10^3/uL Abs Immat Gran (auto) 0.02 (0.00-0.03) 10^3/uL Imm/Tot Granulo (auto) 0.2 (0.0-0.5) % Sodium 142 (136-145) mmol/L Potassium 4.4 (3.5-5.1) mmol/L Chloride 103 (98-107) mmol/L Carbon Dioxide 29.8 (21.0-32.0) mmol/L Anion Gap 13.6 BUN 28.0 H (7.0-18.0) mg/dL Creatinine 1.03 H (0.55-1.02) mg/dL Est GFR ( Amer) >60 (>=60 mL/min/1.73m^2) Est GFR (Non-Af Amer) 53 L (>=60 mL/min/1.73m^2) BUN/Creatinine Ratio 27.2 Glucose 136 H (74-106) mg/dL Lactate 1.5 (0.4-2.0) mmol/L Calcium 9.3 (8.5-10.1) mg/dL Urine Color Yellow (YELLOW) Urine Clarity Clear (CLEAR) Urine pH 6.0 (5.0-9.0) Ur Specific [place] 1.025 (1.005-1.025) Urine Protein Negative (NEG/TRACE) mg/dL Urine Glucose (UA) Negative (NEGATIVE) mg/dL Urine Ketones Negative (NEGATIVE) mg/dL Urine Occult Blood Negative (NEGATIVE) Urine Nitrite Negative (NEGATIVE) Urine Bilirubin Negative (NEGATIVE) Urine Urobilinogen 1.0 (0.2-1.0) EU/dL Ur Leukocyte Esterase Negative (NEGATIVE) Urine RBC 0-2 (0-2) #/HPF Urine WBC None seen (NONE SEEN) #/HPF Ur Squamous Epith Cells Few A (NONE/RARE) #/LPF Urine Crystals None seen (None Seen) #/HPF Urine Bacteria Small A (NONE SEEN) #/HPF Urine Casts None seen (NONE SEEN) #/LPF Urine Mucus Trace A (NONE SEEN) Ur Culture Indicated[place] [place] scan - abdomen: Radiologist's impression: ITS Impressions Abdomen/Pelvis CT 04/08/25 09:44 IMPRESSION: CONTINUED SUSPECTED MID TO DISTAL PARTIAL SMALL BOWEL OBSTRUCTION. HEPATIC AND RENAL CYSTS. MILD DIVERTICULOSIS. NO OTHER ACUTE FINDINGS. Impression dictated by: Esther Laughlin M.D. 04/08/2025 10:28 AM Dictation Location: [employer] Electronically authenticated by: [id number] Y Date: 04/08/2025 10:28 Discharge Plan Discharge Chief Complaint: Abdominal Pain Clinical Impression: Small bowel obstruction Patient Disposition: [facility] Time of Disposition Decision: 11:14 Discharge location: [facility] Mode of Transportation: EMS
[2025-04-08] MEDS: 0.9 % SODIUM CHLORIDE 1,000 ML 1000 ML IV (12:00)
[2025-04-08 13:27] VITALS: BP 124/78; PULSE 67; O2SAT 97
== END 2025-04-08 13:00 | disposition short-term general hospital (02) ==
PROVIDERS: Internal Medicine; Emergency Provider Emergency Medicine; PCP Family Medicine
DX: K56.609 Unspecified intestinal obstruction, unspecified as to partial versus complete obstruction (principal); Z87.891 Personal history of nicotine dependence
CPT/HCPCS: 36415; 74176; 74177; 80048; 81001; 83605; 85025; 87086; 96374; 96375; 99285; J1885; J3010; Q9966; Q9967